=== PATIENT | female | born 1955 | race Caucasian/White ===

== ENCOUNTER 2017-09-09 15:00 | Observation (INO) | payer OTHER ==
[2017-09-09] MEDS ORDERED: PHENERGAN INJ 25 MG IV PRN (16:05)
[2017-09-09 16:28] LABS: BASOPHILS # (AUTO) 0.1 X10^3/uL (0.0-0.1); BASOPHILS % (AUTO) 0.5 % (0.2-1.0); EOSINOPHILS # (AUTO) 0.1 x10^3/uL (0.0-0.2); EOSINOPHILS % (AUTO) 0.4 % (0.9-2.9); HEMATOCRIT 40.9 % (36.0-47.0); HEMOGLOBIN 13.6 g/dL (12.0-16.0); LYMPHOCYTES # (AUTO) 1.6 X10^3/uL (1.3-2.9); LYMPHOCYTES % (AUTO) 13.4 % (21.0-51.0); MEAN CORPUSCULAR HEMOGLOBIN 31.4 pg (27.0-34.0); MEAN CORPUSCULAR HGB CONC 33.2 g/dL (33.0-35.0); MEAN CORPUSCULAR VOLUME 94.6 fL (80.0-100.0); MEAN PLATELET VOLUME 8.6 fL (7.4-11.0); MONOCYTES % (AUTO) 8.3 % (0.0-13.0); NEUTROPHILS # (AUTO) 9.3 x10^3/uL (2.2-4.8); NEUTROPHILS % (AUTO) 77.4 % (42.0-75.0); PLATELET COUNT 302 X10^3/uL (150.0-450.0); RED BLOOD COUNT 4.32 X10^6/uL (3.5-5.4); RED CELL DISTRIBUTION WIDTH 15.5 % (11.6-16.5)
[2017-09-09 16:37] LABS: ALANINE AMINOTRANSFERASE 15 Units/L (12-78); ALBUMIN 3.6 g/dL (3.4-5.0); ALKALINE PHOSPHATASE 108 Units/L (46-116); ASPARTATE AMINO TRANSFERASE 11 Units/L (15-37); BLOOD UREA NITROGEN 12 mg/dL (7-18); CALCIUM 9.2 mg/dL (8.5-10.1); CARBON DIOXIDE 32.5 mmol/L (21-32); CHLORIDE 103 mmol/L (98-107); CREATININE 0.93 mg/dL (0.55-1.02); SODIUM 142 mmol/L (136-145); eGFR BLACK RACES > 60 (>60); eGFR NON BLACK RACES > 60 (>60)
[2017-09-09] MEDS: NS 1000 ML 1,000 ML IV SCH (17:00)
[2017-09-09] MEDS: DEMEROL INJ IVP PRN ×2 (17:00→23:49)
[2017-09-09] MEDS ORDERED: FLUVIRIN IM ONE (17:29)
[2017-09-09] MEDS ORDERED: PREVNAR 13 IM ONE (17:29)
--- NOTE | 2017-09-09 18:20 | DR.H&P ---
H&P - History & Physical for Day of: H&P Date: 09/09/17 - Chief Complaint Chief Complaint: abdominal pain, n/v/d. thrush in mouth, weakness - Allergies Allergies/Adverse Reactions: Allergies Allergy/AdvReac Type Severity Reaction Status Date / Time gabapentin [From Neurontin] Allergy Verified 06/17/17 10:25 - History of Present Illness History of Present Illness: patient is a 61-year-old white female who was a direct admit from Dr. Barnes's office after presenting with complaints of abdominal pain nausea vomiting and diarrhea. Patient states vomiting has somewhat improved over the last several days continues with severe watery diarrhea. Patient also has severe stomatitis. Patient was recently treated for oral thrush without improvement. Patient has a past medical history of hypertension and multi-joint osteoarthritis. Patient also has COPD and uses steroid inhalers. Plan to admit patient for further evaluation of abdominal pain and GI symptoms. Plan to obtain admission labs, stool studies and CT of the abdomen and pelvis. We will start on IV Protonix as well as IV Flagyl. - Past Medical History Past Medical History: Anxiety, Arthritis, CHF, COPD, GERD, Hypertension - Past Surgical History Surgical History: Hysterectomy - Family History Family Medical History: Coronary Artery Disease, Heart Failure, Sudden Cardiac - Social History Does patient currently use any type of tobacco product: Yes Have you used tobacco products in the last 12 months: Yes Type of Tobacco Use: Cigarettes How many years tobacco product used: 50 Does any household member use tobacco: Yes Alcohol Use: None Drug Use: None - Medications Home Medications: Acetaminophen with Codeine [Tylenol with Codeine #3 Tablet] 1 tab PO Q8H PRN [History Confirmed 09/09/17] - Review of Systems Constitutional: Weakness Eyes: No Symptoms Reported ENT: Mouth Pain, Throat Pain Respiratory: Shortness of Breath Cardiovascular: Edema Gastrointestinal: Nausea, Vomiting, Abdominal Pain, Diarrhea Genitourinary: No Symptoms Reported Musculoskeletal: Shoulder Pain, Back Pain, Leg Pain Skin: No Symptoms Reported Neurological: Weakness - Physical Exam Vital Signs: Blood Pressure 161/86 Oriented: Normal Eyes: Normal Ear: Normal Nose: Normal Throat: Red, Exudate Respiratory: RLL Exp. Wheeze, LLL Exp. Wheeze Cardiovascular: Normal, Edema : Normal Auscultation: Bowel Sounds: Increased Tenderness: RLQ, LUQ Skin: Decreased Turgur, Bruising Musculoskeletal: Back:Thoracic, Back:Lumbar, Motor Deficit, Instability Psychiatric: Anxiety Speech Pattern: Clear, Appropriate - Assessment/Plan (1) Gastroenteritis Status: Acute Plan: admit, CBC, CMP, UA, amylase and lipase. Stool studies, cold stool, abdomen series on admission. CT of the abdomen and pelvis with contrast every morning. IV Flagyl, IV saline hydration, pain and nausea control. Repeat a.m. labs, blood pressure and blood sugar monitoring, Diflucan and nystatin for oral stomatitis. (2) Diarrhea Status: Acute (3) Weakness Status: Acute (4) Oral thrush Status: Acute (5) Arthritis Status: Acute
[2017-09-09] MEDS: NYSTATIN POWDER TOP SCH ×2 (18:38→21:23)
[2017-09-09 18:49] LABS: BILIRUBIN,URINE NEGATIVE (NEGATIVE); BLOOD/HEMOGLOBIN,URINE NEGATIVE (NEGATIVE); GLUCOSE, URINE NEGATIVE (NEGATIVE); KETONES,URINE NEGATIVE (NEGATIVE); LEUKOCYTE ESTERASE ,URINE 1+ (NEGATIVE); NITRITES,URINE NEGATIVE (NEGATIVE); PROTEIN,URINE 2+ (NEGATIVE); UROBILINOGEN,URINE 2+ (NORMAL)
[2017-09-09 18:58] LABS: APPEARANCE,URINE SLIGHTLY HAZY (CLEAR); BACTERIA,URINE TRACE /HPF (NEGATIVE); COLOR,URINE DARK YELLOW (YELLOW); MUCUS,URINE MANY /HPF (NEGATIVE); RBC,URINE NONE SEEN /HPF (NEGATIVE); SQUAMOUS EPITHELIAL CELL,UR MODERATE /HPF (NEGATIVE)
[2017-09-09] MEDS ORDERED: TYLENOL #3 TAB (W/CODEINE) PO PRN (18:58)
--- NOTE | 2017-09-09 21:09 | RAD ---
HISTORY: Pain Study: Abdominal series Comparison: None Findings: An upright chest shows the heart to be mildly enlarged and the pulmonary vessels are prominent centra lly . There is some hazy right basilar opacity. Supine and upright views of the abdomen were obtained which shows mild residual contrast in the colon and associated small air-fluid levels throughout. There is no significant bowel dilatation. There is no obvious free air and no urinary calculi are seen. The bones are intact. IMPRESSION: Mild cardiomegaly and mild central pulmonary congestion with a questionable early right basilar infil trate. Questionable mild colonic ileus Reported By:
[2017-09-09] MEDS: NORCO 5/325 MG TAB PO PRN (21:22)
[2017-09-09] MEDS: NYSTATIN SUSP MT SCH (21:23)
[2017-09-09] MEDS: LOPRESSOR TAB 50 MG PO SCH (21:23)
[2017-09-09] MEDS: FLAGYL IV PREMIX 500 MG BAG 500 MG/100 ML BAG IV SCH (21:24)
[2017-09-10] MEDS: FLAGYL IV PREMIX 500 MG BAG 500 MG/100 ML BAG IV SCH ×4 (02:36→20:56)
[2017-09-10 05:17] LABS: BASOPHILS # (AUTO) 0.1 X10^3/uL (0.0-0.1); BASOPHILS % (AUTO) 0.6 % (0.2-1.0); EOSINOPHILS # (AUTO) 0.1 x10^3/uL (0.0-0.2); EOSINOPHILS % (AUTO) 0.6 % (0.9-2.9); HEMATOCRIT 37.1 % (36.0-47.0); HEMOGLOBIN 12.3 g/dL (12.0-16.0); LYMPHOCYTES # (AUTO) 1.9 X10^3/uL (1.3-2.9); MEAN CORPUSCULAR HEMOGLOBIN 31.7 pg (27.0-34.0); MEAN CORPUSCULAR HGB CONC 33.1 g/dL (33.0-35.0); MEAN CORPUSCULAR VOLUME 95.7 fL (80.0-100.0); MEAN PLATELET VOLUME 8.8 fL (7.4-11.0); MONOCYTES % (AUTO) 10.2 % (0.0-13.0); NEUTROPHILS # (AUTO) 6.8 x10^3/uL (2.2-4.8); NEUTROPHILS % (AUTO) 69.6 % (42.0-75.0); PLATELET COUNT 231 X10^3/uL (150.0-450.0); RED BLOOD COUNT 3.87 X10^6/uL (3.5-5.4); RED CELL DISTRIBUTION WIDTH 15.4 % (11.6-16.5); WHITE BLOOD COUNT 9.8 X10^3/uL (3.6-10.0)
[2017-09-10 05:27] LABS: ALANINE AMINOTRANSFERASE 12 Units/L (12-78); ALKALINE PHOSPHATASE 92 Units/L (46-116); ASPARTATE AMINO TRANSFERASE 7 Units/L (15-37); BLOOD UREA NITROGEN 9 mg/dL (7-18); CALCIUM 8.7 mg/dL (8.5-10.1); CARBON DIOXIDE 32.7 mmol/L (21-32); CHLORIDE 104 mmol/L (98-107); COR CA(FOR HYPOALB) 9.5 mg/dL (8.5-10.1); CREATININE 0.68 mg/dL (0.55-1.02); SODIUM 141 mmol/L (136-145); TOTAL PROTEIN 6.8 g/dL (6.4-8.2); eGFR BLACK RACES > 60 (>60); eGFR NON BLACK RACES > 60 (>60)
[2017-09-10] MEDS: DEMEROL INJ IVP PRN ×3 (05:47→20:57)
[2017-09-10 07:25] LABS: CRYPTOSPORIDIUM PARVUM ANTIGEN NEGATIVE (NEGATIVE); GIARDIA LAMBLIA ANTIGEN NEGATIVE (NEGATIVE)
--- NOTE | 2017-09-10 07:38 | CT ---
HISTORY: Abdominal pain, nausea Study: , vomiting CT abdomen pelvis with contrast Comparison: None Technique: Axial post-contrast images with coronal and sagittal reformats. Dose reduction procedures were used with mA/kv adjusted for body size. Findings: The lung bases are clear. The heart is enlarged. The liver, spleen, adrenal glands, and pancreas are within normal limits. No opaque stones are visible within the gallbladder. The kidneys are unobstruct ed and without stones or masses. No ureteral calculi are identified. The appendix is surgically absen t by history. Calcific atherosclerotic change is present in a nondilated abdominal aorta. No enlarged intraperitoneal or retroperitoneal lymphadenopathy is identified. Choose there are no findings sugge stive of diverticulitis or colitis. Examination of the pelvis demonstrated no evidence for pelvic mas ses, pelvic fluid, or pelvic lymphadenopathy. No bladder abnormality is identified. No lytic or blast ic skeletal lesions are identified. IMPRESSION: No significant abnormality identified Reported By:
[2017-09-10] MEDS: DUONEB 0.5 MG/3 MG NEB SCH ×4 (08:54→20:06)
[2017-09-10] MEDS: DIFLUCAN 200 MG IV PREMIX* 200 MG/100 ML BAG IV SCH (09:28)
[2017-09-10] MEDS: NYSTATIN SUSP MT SCH ×4 (09:28→20:56)
[2017-09-10] MEDS: NYSTATIN POWDER TOP SCH ×2 (09:28→20:57)
[2017-09-10] MEDS: LOPRESSOR TAB 50 MG PO SCH ×2 (09:28→20:56)
[2017-09-10] MEDS: PROTONIX INJ 40 MG VIAL IVP SCH (09:28)
[2017-09-10] MEDS: NS 1000 ML 1,000 ML IV SCH ×3 (09:29→20:56)
[2017-09-10] MEDS: LEVAQUIN PREMIX IV 500 MG 500 MG/100 ML BAG IV SCH (09:38)
[2017-09-10] MEDS: NORCO 5/325 MG TAB PO PRN ×2 (09:38→17:44)
[2017-09-10] MEDS ORDERED: VALIUM INJ IVP PRN (11:30)
[2017-09-10] MEDS ORDERED: VALIUM PO PRN (11:34)
--- NOTE | 2017-09-10 15:43 | MRI ---
History: Low back pain. Study: MRI lumbar spine without contrast. Comparison: CT abdomen/pelvis dated same day. Technique: Multiplanar MR images of the lumbar spine were obtained. No I.V. contrast was administered . Findings: There is anatomic alignment without fracture, or listhesis. Multilevel disc desiccation wit h associated moderate to severe disc height loss and type 2 Modic endplate changes. Otherwise, normal bone marrow signal is seen throughout. Conus medullaris terminates at L1. Visualized spinal cord is normal in signal characteristics, course, and caliber. L1-L2 disc level: Broad-based disc bulge that extends into the lateral recesses causing severe right and moderate to severe left neural foraminal narrowing. Spinal canal stenosis to 9 mm. L2-3 disc level: Broad-based disc bulge that extends into the lateral recesses causing moderate bilat eral neural foraminal narrowing and spinal canal stenosis to 10 mm. L3-4 disc level: Broad-based disc bulge that extends into the lateral recesses causing severe right a nd moderate left neural foraminal narrowing. Spinal canal stenosis to 10 mm. L4-5 disc level: Broad-based disc bulge that extends into the lateral recess causing severe bilateral neural foraminal narrowing and spinal canal stenosis to 6 mm. L5-S1 disc level: Broad-based disc bulge without significant neural foraminal narrowing or spinal can al stenosis. Suggestion of bilateral pars defects without evidence of anterolisthesis. Multilevel moderate to severe facet and ligamentum flavum hypertrophy. Impression: Multilevel chronic findings as above. Reported By:
[2017-09-10 16:45] VITALS: BMI 53.6
[2017-09-11] MEDS: DUONEB 0.5 MG/3 MG NEB SCH ×5 (01:09→16:53)
[2017-09-11] MEDS: NORCO 5/325 MG TAB PO PRN ×3 (01:44→14:47)
[2017-09-11] MEDS: FLAGYL IV PREMIX 500 MG BAG 500 MG/100 ML BAG IV SCH ×3 (02:58→14:48)
[2017-09-11] MEDS: DEMEROL INJ IVP PRN ×2 (03:56→10:52)
[2017-09-11] MEDS: NS 1000 ML 1,000 ML IV SCH (05:40)
[2017-09-11 05:44] LABS: BASOPHILS % (AUTO) 0.6 % (0.2-1.0); EOSINOPHILS # (AUTO) 0.1 x10^3/uL (0.0-0.2); EOSINOPHILS % (AUTO) 1.1 % (0.9-2.9); HEMATOCRIT 35.2 % (36.0-47.0); HEMOGLOBIN 11.4 g/dL (12.0-16.0); LYMPHOCYTES # (AUTO) 1.5 X10^3/uL (1.3-2.9); LYMPHOCYTES % (AUTO) 19.1 % (21.0-51.0); MEAN CORPUSCULAR HEMOGLOBIN 31.4 pg (27.0-34.0); MEAN CORPUSCULAR HGB CONC 32.5 g/dL (33.0-35.0); MEAN CORPUSCULAR VOLUME 96.7 fL (80.0-100.0); MEAN PLATELET VOLUME 8.9 fL (7.4-11.0); MONOCYTES % (AUTO) 12.5 % (0.0-13.0); NEUTROPHILS # (AUTO) 5.4 x10^3/uL (2.2-4.8); NEUTROPHILS % (AUTO) 66.7 % (42.0-75.0); PLATELET COUNT 210 X10^3/uL (150.0-450.0); RED BLOOD COUNT 3.64 X10^6/uL (3.5-5.4); RED CELL DISTRIBUTION WIDTH 15.4 % (11.6-16.5)
[2017-09-11 05:52] LABS: ALANINE AMINOTRANSFERASE 13 Units/L (12-78); ALBUMIN 2.8 g/dL (3.4-5.0); ALKALINE PHOSPHATASE 83 Units/L (46-116); ASPARTATE AMINO TRANSFERASE 12 Units/L (15-37); BLOOD UREA NITROGEN 18 mg/dL (7-18); CALCIUM 8.3 mg/dL (8.5-10.1); CARBON DIOXIDE 31.9 mmol/L (21-32); CHLORIDE 105 mmol/L (98-107); COR CA(FOR HYPOALB) 9.3 mg/dL (8.5-10.1); CREATININE 0.73 mg/dL (0.55-1.02); SODIUM 140 mmol/L (136-145); TOTAL PROTEIN 6.4 g/dL (6.4-8.2); eGFR BLACK RACES > 60 (>60); eGFR NON BLACK RACES > 60 (>60)
[2017-09-11] MEDS: PROTONIX INJ 40 MG VIAL IVP SCH (08:13)
[2017-09-11] MEDS: NYSTATIN SUSP MT SCH ×3 (08:13→17:18)
[2017-09-11] MEDS: DIFLUCAN 200 MG IV PREMIX* 200 MG/100 ML BAG IV SCH (08:14)
[2017-09-11] MEDS: LEVAQUIN PREMIX IV 500 MG 500 MG/100 ML BAG IV SCH (08:14)
[2017-09-11] MEDS: LOPRESSOR TAB 50 MG PO SCH (08:14)
[2017-09-11] MEDS: NYSTATIN POWDER TOP SCH (08:15)
[2017-09-11] MEDS ORDERED: SOLU-Medrol 125 MG VIAL IVP ONE (08:25)
--- NOTE | 2017-09-11 09:18 | RAD ---
HISTORY: COPD Study: Chest AP portable Comparison: None Findings: The heart is enlarged. No definite congestive heart failure is noted. The aorta is calcified. There i s marked widening of the upper mediastinum which should be further evaluated with chest CT with contr ast. The lungs are well inflated and free of acute infiltrates. No pleural effusions are identified. The bony thorax is unremarkable. IMPRESSION: Marked widening of the upper mediastinum which should be further evaluated with chest CT with contras t Cardiomegaly without congestive heart failure Lungs clear Reported By:
[2017-09-11] MEDS ORDERED: SOLU-Medrol 125 MG VIAL ONE (10:38)
[2017-09-11] MEDS ORDERED: NS 100 ML IV 100 ML IV ONE (13:34)
--- NOTE | 2017-09-11 14:23 | CT ---
History: Wide mediastinum on chest x-ray Study: CT of the chest with undocumented amount and type of intravenous contrast Comparison: None Findings: The lungs are clear. There is no pleural or pericardial effusion. There is prominent superi or anterior mediastinal fat. There is no abnormal mediastinal mass. The main pulmonary artery however measures nearly 5 cm diameter in the right main pulmonary artery measures 3.8 cm diameter. There is no aortic aneurysmal dilatation. The visualized upper abdomen is unremarkable. There are mild to mode rate degenerative changes in the thoracic spine. Impression: 1. Mediastinal fat but no abnormal mediastinal mass or adenopathy 2. Enlarged central and main pulmonary artery suggesting pulmonary hypertension Reported By:
[2017-09-11 17:21] VITALS: BP 119/68
== END 2017-09-11 17:20 | disposition home or self-care (01) ==
LOC: MED/SURG 15:00
PROVIDERS: ADMIT Internal Medicine; ATTEND Internal Medicine
PROC: 3E0234Z Introduction of Serum, Toxoid and Vaccine into Muscle, Percutaneous Approach (ICD-10-PCS; principal; 2017-09-09)
DX: R10.84 Generalized abdominal pain (principal); K52.89 Other specified noninfective gastroenteritis and colitis; R11.2 Nausea with vomiting, unspecified; R19.7 Diarrhea, unspecified; R53.1 Weakness; B37.0 Candidal stomatitis; I10 Essential (primary) hypertension; M13.89 Other specified arthritis, multiple sites; J44.9 Chronic obstructive pulmonary disease, unspecified; R06.02 Shortness of breath; D72.828 Other elevated white blood cell count; R60.0 Localized edema; Z23 Encounter for immunization
CPT/HCPCS: 36415; 71010; 71260; 72148; 74022; 74177; 80053; 80307; 81001; 82270; 85025; 87045; 87070; 87086; 87205; 87328; 87329; 87336; 87338; 87427; 87493; 87899; 90686; 94640; 94760; A4222; C9113; S0030; 90670; G0378; G0434; J1450; J1956; J2175; J2930; J7620

== ENCOUNTER 2018-01-06 13:42 | Inpatient (IN) | payer OTHER ==
[2018-01-06 13:48] VITALS: BMI 54.8
[2018-01-06] MEDS ORDERED: DUONEB 0.5 MG/3 MG ONE (13:58)
[2018-01-06] MEDS ORDERED: DUONEB 0.5 MG/3 MG NEB ONE (14:09)
--- NOTE | 2018-01-06 14:13 | DR.GENAD ---
HPI - PCP Primary Care Physician: GABBY BENDER, [employer] - HPI Comment HPI Comment: PATIENT WAS RECENTLY TREATED FOR PNEUMONIA. WAS TRYING TO GET OVER IT. YESTERDAY, HER SYMTOMS STARTED. NO FEVER. - Complaint/Symptoms Chief Complaint Doctors Comments: GENERALIZE PAIN, BODYACHES AND INCREASING SOB FOR ONE DAY. Chief Complaint:: PT C/O BEING SOB AND CCC AND HURING ALL OVER HER ABD AND CHEST.. BR Self Treatment fo Chief Complaint: PT WAS PLACED ON LASIX 2 WEEKS AGO.. - Nurses notes reviewed Nurses Notes Review: Yes - Source History Provided: Patient - Mode of Arrival Mode of Arrival: Ambulatory - Timing Onset of Chief Complaint: 01/05/18 Came on: Suddenly - Duration Duration: Since Onset Duration: Days - Severity Severity: Moderate PMH - PMH Past Medical History: Yes Past Medical History: Anxiety, Arthritis, CHF, COPD, GERD, Hypertension Past Surgical History: Yes Surgical History: Hysterectomy - Family History History of Family Medical Conditions: Yes Family Medical History: Coronary Artery Disease, Heart Failure, Sudden Cardiac - Social History Does patient currently use any type of tobacco product: Yes Have you used tobacco products in the last 12 months: Yes Type of Tobacco Use: Cigarettes How many years tobacco product used: 40 Does any household member use tobacco: No Alcohol Use: None Do you use any recreational Drugs:: No Lives With: Family Lives Where: Home - infectious screening In the last 2 months have you had wt loss of >10#?: NO Have you had fever, night sweats or hemotysis?: No Have you traveled outside the country in the last 6 months?: No Isolation: Standard ROS - Review of Systems Constitutional: Weakness, Fatigue. negative: Chills Eyes: negative: Eye Pain, Discharge ENTM: Nose Congestion. negative: Ear Pain, Nose Discharge, Throat Pain Respiratoy: Productive Cough, Short of Breath, Wheezing. negative: Hemoptysis Cardiovascular: Chest Pain, Edema Gastrointestinal/Abdominal: No Symptoms Reported Genitourinary: No Symptoms Reported Hematologic/Lymphatic: No Symptoms Reported Endocrine: No Symptoms Reported All Other Systems: Reviewed and Negative PE - Vital Signs Vitals: Temperature 98.3 F Pulse Rate [Left Brachial] 69 Pulse Rate 86 Respiratory Rate 24 Blood Pressure [Left Arm] 107/58 Blood Pressure [Right Arm] 119/68 Blood Pressure 98/55 O2 Sat by Pulse Oximetry 85 - General Limitations: No Limitations General Appearance: Alert - Head Head Exam: Normal Inspection - Eyes Eye exam: Normal Appearance, PERRL, EOMI. negative: Scleral Icterus, Conjunctival Injection - ENT ENT Exam: Normal External Ear Exam External Ear Exam: Normal External Inspection TM/Canal Exam: Bilateral Normal Nose Exam: Normal Nose Exam Mouth Exam: Normal Inspection Throat Exam: Normal Inspection - Neck Neck Exam: Trachea Midline - Chest Chest Inspection: Symmetric Chest Wall Rise - Respiratory Respiratory Exam: Respiratory Distress Respiratory Exam: Bilateral Wheezing, Bilateral Rhonchi, Upper Wheezing, Upper Rhonchi, Lower Wheezing, Lower Rhonchi - Cardiovascular Cardiovascular Exam: Regular Rate, Normal Rhythm, Normal Heart Sounds - Abdominal Exam Abdominal Exam: Normal Bowel Sounds, Soft. negative: Tenderness - Extremities Extremities Exam: Tenderness (LOWER EXTREMITY SWELLIND AND TENDERNESS.) - Back Back Exam: Paraspinal Tenderness, Vertebral Tenderness - Neurologic Neurological Exam: Alert, Oriented X3 - Psychiatric Psychiatric Exam: Anxious - Skin Skin Exam: Erythema MDM - Differential Diagnosis Differential Diagnosis: CHF, COPD, RESPIRATORY DISTRESS, SD, PNEUMONIA, PULMONARY EMBOLISM Course - Treatment Treatment: SEE ORDERS. - Consultation Consultation Comments: DISCUSS PATIENT WITH DR. MALDONADO, HE WILL ADMIT PATIENT. - Education/Counseling Education/Counseling: Patient, Education Educated On: Diagnosis, Needs for Follow Up ROR - Labs Reviewed Laboratory Results Reviewed?: Yes Result Diagrams: 01/07/18 07:20 01/07/18 07:20 Laboratory: WBC 5.1 X10^3/uL (3.6-10.0) 01/07/18 07:20 RBC 3.88 X10^6/uL (3.5-5.4) 01/07/18 07:20 Hgb 12.0 g/dL (12.0-16.0) 01/07/18 07:20 Hct 38.3 % (36.0-47.0) 01/07/18 07:20 MCV 98.8 fL (80.0-100.0) 01/07/18 07:20 MCH 30.9 pg (27.0-34.0) 01/07/18 07:20 MCHC 31.2 g/dL (33.0-35.0) L 01/07/18 07:20 RDW 16.2 % (11.6-16.5) 01/07/18 07:20 Plt Count 146 X10^3/uL (150.0-450.0) L 01/07/18 07:20 Plt Count Comment Adequate (ADEQUATE) 01/07/18 07:20 MPV 9.6 fL (7.4-11.0) 01/07/18 07:20 Neut % 69.8 % (42.0-75.0) 01/07/18 07:20 Lymph % 8.4 % (21.0-51.0) L 01/07/18 07:20 [place] % 20.9 % (0.0-13.0) H 01/07/18 07:20 Eos % 0.1 % (0.9-2.9) L 01/07/18 07:20 Baso % 0.8 % (0.2-1.0) 01/07/18 07:20 Neut # 3.6 x10^3/uL (2.2-4.8) 01/07/18 07:20 Lymph # 0.4 X10^3/uL (1.3-2.9) L 01/07/18 07:20 [place] # 1.1 x10^3/uL (0.3-0.8) H 01/07/18 07:20 Eos # 0.0 x10^3/uL (0.0-0.2) 01/07/18 07:20 Baso # 0.0 X10^3/uL (0.0-0.1) 01/07/18 07:20 Absolute Nucleated RBC 0.2 /100WBC 01/07/18 07:20 Total Counted 100 01/07/18 07:20 Neutrophils % (Manual) 73 % (39-76) 01/07/18 07:20 Lymphocytes % (Manual) 20 % (13-43) 01/07/18 07:20 Monocytes % (Manual) 7 % (4-9) 01/07/18 07:20 Plt Morphology Comment Normal (NORMAL) 01/07/18 07:20 RBC Morphology Normal (NORMAL) 01/07/18 07:20 INR Target Range - 01/07/18 07:20 INR 1.23 (0.8-1.3) 01/07/18 07:20 PTT 37.7 SECONDS (22.9-36.5) H 01/07/18 07:20 PTT Comment - 01/07/18 07:20 D-Dimer 883 ng/mL (0-400) H* 01/06/18 14:00 Sample Site Lb 01/07/18 08:31 ABG pH 7.200 (7.35-7.45) L 01/07/18 08:31 ABG pCO2 94.0 mmHg (35.0-45.0) H* 01/07/18 08:31 ABG pO2 79.0 mmHg (80.0-100.0) L 01/07/18 08:31 ABG HCO3 36.7 mmol/L (22-26) H* 01/07/18 08:31 ABG O2 Saturation 92.0 % (90-100) 01/07/18 08:31 ABG Base Excess 5.6 mmol/L (-2.0-2.0) H 01/07/18 08:31 Pal Test N/a 01/07/18 08:31 A-a Gradient 160.0 mmHg 01/07/18 08:31 FiO2 50.000 01/07/18 08:31 Blood Gas Comments Pt mark well. cdn 01/07/18 08:31 Sodium 140 mmol/L (136-145) 01/07/18 07:20 Corrected Sodium TNP 01/07/18 07:20 Potassium 4.8 mmol/L (3.5-5.1) 01/07/18 07:20 Chloride 102 mmol/L (98-107) 01/07/18 07:20 Carbon Dioxide 36.9 mmol/L (21-32) H 01/07/18 07:20 BUN 16 mg/dL (7-18) 01/07/18 07:20 Creatinine 0.97 mg/dL (0.55-1.02) 01/07/18 07:20 Est GFR (MDRD) Af Amer > 60 (>60) 01/07/18 07:20 Est GFR (MDRD) Non-Af > 60 (>60) 01/07/18 07:20 Glucose 84 mg/dL (65-99) 01/07/18 07:20 Lactic Acid 1.0 mmol/L (0.4-2.0) 01/06/18 14:00 Calcium 7.9 mg/dL (8.5-10.1) L 01/07/18 07:20 Corrected Calcium 8.9 mg/dL (8.5-10.1) 01/07/18 07:20 Magnesium 1.8 mg/dL (1.7-2.9) 01/07/18 07:20 Total Bilirubin 0.30 mg/dL (0.2-1.0) 01/07/18 07:20 AST 53 Units/L (15-37) H 01/07/18 07:20 ALT 33 Units/L (12-78) 01/07/18 07:20 Alkaline Phosphatase 117 Units/L (46-116) H 01/07/18 07:20 Creatine Kinase 140 Units/L (26-192) 01/07/18 01:35 CK-MB (CK-2) 1.6 ng/mL (0-4.0) 01/07/18 01:35 CK/CKMB % Calc 1.1 % (<4) 01/07/18 01:35 Troponin I 0.38 ng/mL (0-1.5) 01/07/18 01:35 C-Reactive Protein 59.70 mg/L (0-3.0) H 01/06/18 14:00 Total Protein 6.8 g/dL (6.4-8.2) 01/07/18 07:20 Albumin 2.8 g/dL (3.4-5.0) L 01/07/18 07:20 Globulin 4.0 g/dL (2.5-4.5) 01/07/18 07:20 Albumin/Globulin Ratio 0.7 Ratio (1.1-2.1) L 01/07/18 07:20 Triglycerides 56 mg/dL (0-150) 01/07/18 07:20 Cholesterol 125 mg/dL (0-200) 01/07/18 07:20 LDL Cholesterol, Calc 93 mg/dL (0-100) 01/07/18 07:20 HDL Cholesterol 21 mg/dL (40-60) L 01/07/18 07:20 Cholesterol/HDL Ratio 6.0 (0.0-5.0) H 01/07/18 07:20 Specimen Type Catherized urine 01/06/18 15: Urine Color Dark yellow (YELLOW) 01/06/18 15: Urine Appearance Slightly hazy (CLEAR) 01/06/18 15: Urine pH 5.0 (5.0 - 8.0) 01/06/18 15:27 Ur Specific [place] 1.025 (1.000-1.030) 01/06/18 15:27 Urine Protein 3+ (NEGATIVE) 01/06/18 15:27 Urine Glucose (UA) Negative (NEGATIVE) 01/06/18 15: Urine Ketones Negative (NEGATIVE) 01/06/18 15:27 Urine Occult Blood 1+ (NEGATIVE) 01/06/18 15: Urine Nitrite Negative (NEGATIVE) 01/06/18 15: Urine Bilirubin 1+ (NEGATIVE) 01/06/18 15: Urine Urobilinogen 3+ (NORMAL) 01/06/18 15:27 Ur Leukocyte Esterase 1+ (NEGATIVE) 01/06/18 15:27 Urine RBC 2-5 /HPF (NEGATIVE) 01/06/18 15:27 Urine WBC 1-3 /HPF (NEGATIVE) 01/06/18 15:27 Ur Squamous Epith Cells Many /HPF (NEGATIVE) 01/06/18 15: Amorphous Sediment 2+ /HPF (NEGATIVE) 01/06/18 15:27 Urine Bacteria 1+ /HPF (NEGATIVE) 01/06/18 15:27 Hyaline Casts Few /LPF (NEGATIVE) 01/06/18 15:27 Ur Culture Indicated? No/not indicated 01/06/18 15:27 Influenza Type A (PCR) Negative (NEGATIVE) 01/06/18 14:16 Influenza Type B (PCR) Positive (NEGATIVE) A 01/06/18 14:16 - XRAY XRAY Findings: DISCUSS REPORT WITH PATIENT. - EKG Rhythm: NSR (EKG NOTED) - Diagnosis Discharge Problem: CHF (congestive heart failure), Hypercapnia, COPD exacerbation, Respiratory distress, Influenza - Discharge Plan Disposition: ADMITTED INPATIENT Condition: Stable - Follow ups/Referrals - Instructions
[2018-01-06 14:21] LABS: BASOPHILS % (AUTO) 0.7 % (0.2-1.0); EOSINOPHILS % (AUTO) 0.1 % (0.9-2.9); HEMATOCRIT 38.3 % (36.0-47.0); HEMOGLOBIN 12.2 g/dL (12.0-16.0); LYMPHOCYTES # (AUTO) 0.4 X10^3/uL (1.3-2.9); LYMPHOCYTES % (AUTO) 7.9 % (21.0-51.0); MEAN CORPUSCULAR HEMOGLOBIN 30.9 pg (27.0-34.0); MEAN CORPUSCULAR HGB CONC 31.8 g/dL (33.0-35.0); MEAN CORPUSCULAR VOLUME 97.3 fL (80.0-100.0); MEAN PLATELET VOLUME 9.3 fL (7.4-11.0); MONOCYTES # (AUTO) 0.9 x10^3/uL (0.3-0.8); MONOCYTES % (AUTO) 15.9 % (0.0-13.0); NEUTROPHILS # (AUTO) 4.2 x10^3/uL (2.2-4.8); NEUTROPHILS % (AUTO) 75.4 % (42.0-75.0); PLATELET COUNT 168 X10^3/uL (150.0-450.0); RED BLOOD COUNT 3.94 X10^6/uL (3.5-5.4); RED CELL DISTRIBUTION WIDTH 16.2 % (11.6-16.5); WHITE BLOOD COUNT 5.5 X10^3/uL (3.6-10.0)
[2018-01-06 14:36] LABS: ABG BASE EXCESS 4.8 mmol/L (-2.0-2.0)
[2018-01-06 14:37] LABS: ABG HCO3 35.2 mmol/L (22-26)
[2018-01-06 14:45] LABS: BLOOD UREA NITROGEN 15 mg/dL (7-18); CALCIUM 8.4 mg/dL (8.5-10.1); CARBON DIOXIDE 32.8 mmol/L (21-32); CHLORIDE 101 mmol/L (98-107); CREATININE 1.11 mg/dL (0.55-1.02); SODIUM 139 mmol/L (136-145); TROPONIN I < 0.02 ng/mL (0-1.5); eGFR BLACK RACES > 60 (>60); eGFR NON BLACK RACES 53 (>60)
[2018-01-06 14:48] LABS: ALANINE AMINOTRANSFERASE 19 Units/L (12-78); ALBUMIN 3.1 g/dL (3.4-5.0); ALKALINE PHOSPHATASE 128 Units/L (46-116); ASPARTATE AMINO TRANSFERASE 27 Units/L (15-37); CKMB % 4.2 % (<4); COR CA(FOR HYPOALB) 9.1 mg/dL (8.5-10.1); CREATINE KINASE 24 Units/L (26-192); CREATINE KINASE MB < 1.0 ng/mL (0-4.0); TOTAL PROTEIN 7.2 g/dL (6.4-8.2)
--- NOTE | 2018-01-06 15:12 | RAD ---
STUDY: CHEST, ONE VIEW History: Shortness of breath. CHF, COPD, hypertension. Comparison: September 11, 2017. Findings: The trachea is midline. The cardiac silhouette is enlarged. There is central pulmonary vascular conge stion and mild bilateral interstitial edema. There is no evidence of consolidation, effusion, or pneu mothorax. IMPRESSION: 1. Cardiomegaly with central pulmonary vascular congestion and bilateral interstitial edema. Reported By:
[2018-01-06 15:33] LABS: BILIRUBIN,URINE 1+ (NEGATIVE); BLOOD/HEMOGLOBIN,URINE 1+ (NEGATIVE); GLUCOSE, URINE NEGATIVE (NEGATIVE); KETONES,URINE NEGATIVE (NEGATIVE); LEUKOCYTE ESTERASE ,URINE 1+ (NEGATIVE); NITRITES,URINE NEGATIVE (NEGATIVE); PROTEIN,URINE 3+ (NEGATIVE); UROBILINOGEN,URINE 3+ (NORMAL)
[2018-01-06 15:53] LABS: AMORPHOUS SEDIMENT,UR 2+ /HPF (NEGATIVE); APPEARANCE,URINE SLIGHTLY HAZY (CLEAR); BACTERIA,URINE 1+ /HPF (NEGATIVE); COLOR,URINE DARK YELLOW (YELLOW); HYALINE CASTS, URINE FEW /LPF (NEGATIVE); SQUAMOUS EPITHELIAL CELL,UR MANY /HPF (NEGATIVE)
[2018-01-06] MEDS ORDERED: LASIX IVP ONE ×2 (16:13→16:24)
[2018-01-06] MEDS: DUONEB 0.5 MG/3 MG NEB SCH ×2 (18:20→20:10)
[2018-01-06 20:24] LABS: CKMB % 2.4 % (<4); CREATINE KINASE 41 Units/L (26-192); CREATINE KINASE MB < 1.0 ng/mL (0-4.0); TROPONIN I 0.26 ng/mL (0-1.5)
[2018-01-06] MEDS ORDERED: NS 250 ML IV 250 ML IV ONE (20:47)
[2018-01-06] MEDS: LOPRESSOR TAB 50 MG PO SCH (23:14)
[2018-01-06] MEDS: ROCEPHIN VIAL 1 GM 1 GM in NS 100 ML IV + SPIKE MINIBAG* 100 ML IV SCH (23:14)
[2018-01-06] MEDS: TYLENOL 325 MG TAB PO PRN (23:14)
[2018-01-06] MEDS: LASIX IVP SCH (23:15)
[2018-01-06] MEDS: K-DUR TAB 20 MEQ PO SCH (23:15)
[2018-01-07] MEDS: DUONEB 0.5 MG/3 MG NEB SCH ×6 (01:37→21:23)
[2018-01-07 02:16] LABS: CKMB % 1.1 % (<4); CREATINE KINASE MB 1.6 ng/mL (0-4.0); TROPONIN I 0.38 ng/mL (0-1.5)
[2018-01-07 07:38] LABS: BASOPHILS % (AUTO) 0.8 % (0.2-1.0); EOSINOPHILS % (AUTO) 0.1 % (0.9-2.9); HEMATOCRIT 38.3 % (36.0-47.0); LYMPHOCYTES # (AUTO) 0.4 X10^3/uL (1.3-2.9); LYMPHOCYTES % (AUTO) 8.4 % (21.0-51.0); MEAN CORPUSCULAR HEMOGLOBIN 30.9 pg (27.0-34.0); MEAN CORPUSCULAR HGB CONC 31.2 g/dL (33.0-35.0); MEAN CORPUSCULAR VOLUME 98.8 fL (80.0-100.0); MEAN PLATELET VOLUME 9.6 fL (7.4-11.0); MONOCYTES # (AUTO) 1.1 x10^3/uL (0.3-0.8); MONOCYTES % (AUTO) 20.9 % (0.0-13.0); NEUTROPHILS # (AUTO) 3.6 x10^3/uL (2.2-4.8); NEUTROPHILS % (AUTO) 69.8 % (42.0-75.0); PLATELET COUNT 146 X10^3/uL (150.0-450.0); RED BLOOD COUNT 3.88 X10^6/uL (3.5-5.4); RED CELL DISTRIBUTION WIDTH 16.2 % (11.6-16.5); WHITE BLOOD COUNT 5.1 X10^3/uL (3.6-10.0)
[2018-01-07 07:44] LABS: ALANINE AMINOTRANSFERASE 33 Units/L (12-78); ALBUMIN 2.8 g/dL (3.4-5.0); ALKALINE PHOSPHATASE 117 Units/L (46-116); ASPARTATE AMINO TRANSFERASE 53 Units/L (15-37); BLOOD UREA NITROGEN 16 mg/dL (7-18); CALCIUM 7.9 mg/dL (8.5-10.1); CARBON DIOXIDE 36.9 mmol/L (21-32); CHLORIDE 102 mmol/L (98-107); CHOLESTEROL 125 mg/dL (0-200); COR CA(FOR HYPOALB) 8.9 mg/dL (8.5-10.1); CREATININE 0.97 mg/dL (0.55-1.02); HDL CHOLESTEROL 21 mg/dL (40-60); MAGNESIUM 1.8 mg/dL (1.7-2.9); PLATELET MORPHOLOGY COMMENT NORMAL (NORMAL); SODIUM 140 mmol/L (136-145); TOTAL PROTEIN 6.8 g/dL (6.4-8.2); TRIGLYCERIDES 56 mg/dL (0-150); eGFR BLACK RACES > 60 (>60); eGFR NON BLACK RACES > 60 (>60)
[2018-01-07 08:36] LABS: ABG BASE EXCESS 5.6 mmol/L (-2.0-2.0)
[2018-01-07 08:38] LABS: ABG HCO3 36.7 mmol/L (22-26)
[2018-01-07] MEDS ORDERED: NORCO 5/325 MG TAB PO SCH (09:00)
[2018-01-07] MEDS: K-DUR TAB 20 MEQ PO SCH (09:43)
[2018-01-07] MEDS: NORCO 5/325 MG TAB PO SCH ×4 (09:43→21:23)
[2018-01-07] MEDS: ROCEPHIN VIAL 1 GM 1 GM in NS 100 ML IV + SPIKE MINIBAG* 100 ML IV SCH (09:43)
[2018-01-07] MEDS: LOPRESSOR TAB 50 MG PO SCH ×2 (11:34→20:32)
[2018-01-07] MEDS: LASIX IVP SCH ×3 (11:34→21:23)
[2018-01-07 13:18] LABS: ABG BASE EXCESS 3.3 mmol/L (-2.0-2.0)
[2018-01-07 13:19] LABS: ABG HCO3 34.7 mmol/L (22-26)
--- NOTE | 2018-01-07 13:30 | DR.H&P ---
H&P - History & Physical for Day of: H&P Date: 01/06/18 - Chief Complaint Chief Complaint: sob, ccc, flu like symptoms - Allergies Allergies/Adverse Reactions: Allergies Allergy/AdvReac Type Severity Reaction Status Date / Time morphine Allergy Mild RASH Verified 01/06/18 13:43 tramadol Allergy Mild RASH Verified 01/06/18 13:43 gabapentin [From Neurontin] Allergy Verified 01/06/18 13:43 - History of Present Illness History of Present Illness: patient is a 62-year-old white female who is an ER admission after presenting with respiratory distress. Patient stated she been having flulike symptoms and recent pneumonia was just getting worse instead of better. Patient was noted to have pulmonary edema and congestion on chest x- ray and positive for influenza B patient was hypoxic, admitted to ICU for further evaluation and treatment of respiratory distress. Serial cardiac enzymes, EKGs and blood pressure monitoring as well as IV diurese therapy, aggressive respiratory therapy. - Past Medical History Past Medical History: Anxiety, Arthritis, CHF, COPD, GERD, Hypertension - Past Surgical History Surgical History: Hysterectomy - Family History Family Medical History: Coronary Artery Disease, Heart Failure, Sudden Cardiac - Social History Does patient currently use any type of tobacco product: Yes Have you used tobacco products in the last 12 months: Yes Type of Tobacco Use: Cigarettes How many years tobacco product used: 40 Does any household member use tobacco: No Alcohol Use: None Drug Use: None - Medications Home Medications: Furosemide [LASIX TAB 40 MG *] 1 tab PO DAILY 01/06/18 [History Confirmed ] Hydrocodone-Acet 5 mg/325 mg [NORCO 5 MG/325 MG *] 1 tab PO DAILY 01/06/18 [ History Confirmed 01/06/18] - Review of Systems Constitutional: Fever, Chills, Weakness, Malaise Eyes: No Symptoms Reported ENT: Throat Pain Respiratory: Cough, Shortness of Breath, SOB with Excertion, Wheezing Cardiovascular: Edema Gastrointestinal: Nausea Genitourinary: No Symptoms Reported Musculoskeletal: Back Pain, Leg Pain Skin: No Symptoms Reported Neurological: Weakness - Physical Exam Vital Signs: Temperature 97.3 F Pulse Rate [Left Brachial] 66 Pulse Rate 66 Respiratory Rate 49 Blood Pressure [Left Arm] 106/58 Blood Pressure [Right Arm] 119/68 Blood Pressure 98/55 O2 Sat by Pulse Oximetry 90 Oriented: Normal Eyes: Normal Ear: Normal Nose: Normal Throat: Dry Respiratory: Diminished Throughout : Normal Auscultation: Bowel Sounds: Normal Palpation: Normal Tenderness: Normal Skin: Normal Musculoskeletal: Back:Lumbar Psychiatric: Anxiety Affect: Anxious Speech Pattern: Clear, Appropriate - Assessment/Plan (1) Respiratory distress Status: Acute Plan: ADMIT, RESP THERAPY, SUPPLEMENTAL O2. BI PAP, REPEAT ABG. CARDIAC MONITORING AND CE, BP CONTROL. STRICT I & OS, CHAND CATH. IV ATBX THERAPY, BLOOD CULTURES, SPUTUM CULTURES. TAMIFLU, CONTACT PRECAUTIONS (2) CHF (congestive heart failure) Status: Acute (3) COPD exacerbation Status: Acute (4) Influenza Status: Acute (5) Gastroenteritis Status: Acute
[2018-01-07] MEDS: SOLU-Medrol 125 MG VIAL IVP SCH ×2 (13:44→21:23)
[2018-01-07] MEDS ORDERED: NS 250 ML IV 250 ML IV ONE (13:45)
--- NOTE | 2018-01-07 13:45 | RAD ---
Examination: Portable AP chest History: SOB Comparison 01/06/2018 Findings: Stable cardiac enlargement and central vascular prominence. Diffuse interstitial increase m ay represent chronic fibrosis and/or perivascular edema. The extreme lung bases are not well evaluate d, the left base and diaphragm not included on this image. Impression: Considering technical difference, little if any change since 1 day prior. Reported By:
[2018-01-07] MEDS: TAMIFLU PO SCH ×2 (13:46→21:23)
[2018-01-07] MEDS: LOVENOX INJ 40 MG SYR SC SCH (13:51)
[2018-01-07] MEDS ORDERED: NS 250 ML IV 250 ML IV PRN (13:53)
[2018-01-07] MEDS: LEVAQUIN PREMIX IV 750 MG 750 MG/150 ML BAG IV SCH (13:53)
[2018-01-07 13:55] LABS: CKMB % 0.9 % (<4); CREATINE KINASE MB 1.7 ng/mL (0-4.0); TROPONIN I 0.23 ng/mL (0-1.5)
[2018-01-07] MEDS ORDERED: PHARMACY CONSULT - DOSE _____ XX SCH (14:00)
[2018-01-07 16:04] LABS: ABG BASE EXCESS 7.5 mmol/L (-2.0-2.0)
[2018-01-07 16:05] LABS: ABG HCO3 37.7 mmol/L (22-26)
[2018-01-07] MEDS: TYLENOL 325 MG TAB PO PRN (17:51)
[2018-01-07 19:43] LABS: ABG BASE EXCESS 8.7 mmol/L (-2.0-2.0)
[2018-01-07 19:45] LABS: ABG HCO3 39.4 mmol/L (22-26)
[2018-01-07 19:46] LABS: ABG ALLEN TEST POS
[2018-01-07] MEDS ORDERED: RESTORIL CAP 15 MG PO PRN (19:47)
[2018-01-07] MEDS ORDERED: TUSSIONEX PENNKINETIC SUSP PO PRN (20:02)
[2018-01-07] MEDS: BROVANA IN SCH (21:22)
[2018-01-07] MEDS: PULMICORT NEB TX 0.5 MG NEB SCH (21:22)
[2018-01-08] MEDS: DUONEB 0.5 MG/3 MG NEB SCH ×5 (01:36→16:11)
[2018-01-08] MEDS: NORCO 5/325 MG TAB PO SCH ×4 (05:01→15:48)
[2018-01-08 06:09] LABS: BASOPHILS % (AUTO) 0.4 % (0.2-1.0); HEMATOCRIT 38.5 % (36.0-47.0); HEMOGLOBIN 12.2 g/dL (12.0-16.0); LYMPHOCYTES # (AUTO) 0.5 X10^3/uL (1.3-2.9); LYMPHOCYTES % (AUTO) 14.9 % (21.0-51.0); MEAN CORPUSCULAR HEMOGLOBIN 30.7 pg (27.0-34.0); MEAN CORPUSCULAR HGB CONC 31.6 g/dL (33.0-35.0); MEAN CORPUSCULAR VOLUME 97.1 fL (80.0-100.0); MEAN PLATELET VOLUME 9.8 fL (7.4-11.0); MONOCYTES # (AUTO) 0.4 x10^3/uL (0.3-0.8); MONOCYTES % (AUTO) 11.4 % (0.0-13.0); NEUTROPHILS # (AUTO) 2.3 x10^3/uL (2.2-4.8); NEUTROPHILS % (AUTO) 73.3 % (42.0-75.0); PLATELET COUNT 145 X10^3/uL (150.0-450.0); RED BLOOD COUNT 3.96 X10^6/uL (3.5-5.4); RED CELL DISTRIBUTION WIDTH 15.8 % (11.6-16.5); WHITE BLOOD COUNT 3.1 X10^3/uL (3.6-10.0)
[2018-01-08] MEDS: SOLU-Medrol 125 MG VIAL IVP SCH ×2 (06:09→15:49)
[2018-01-08 06:29] LABS: ALANINE AMINOTRANSFERASE 63 Units/L (12-78); ALBUMIN 2.6 g/dL (3.4-5.0); ALKALINE PHOSPHATASE 113 Units/L (46-116); ASPARTATE AMINO TRANSFERASE 79 Units/L (15-37); BLOOD UREA NITROGEN 21 mg/dL (7-18); CALCIUM 8.1 mg/dL (8.5-10.1); CHLORIDE 102 mmol/L (98-107); COR CA(FOR HYPOALB) 9.2 mg/dL (8.5-10.1); COR NA(FOR HYPERGLY) 142 mmol/L (136-145); CREATININE 0.79 mg/dL (0.55-1.02); SODIUM 141 mmol/L (136-145); TOTAL PROTEIN 6.7 g/dL (6.4-8.2); eGFR BLACK RACES > 60 (>60); eGFR NON BLACK RACES > 60 (>60)
[2018-01-08 06:39] LABS: PLATELET MORPHOLOGY COMMENT NORMAL (NORMAL)
[2018-01-08] MEDS: PULMICORT NEB TX 0.5 MG NEB SCH (08:54)
[2018-01-08] MEDS: BROVANA IN SCH (08:54)
[2018-01-08] MEDS ORDERED: ASPIRIN EC 81 MG PO SCH (09:00)
[2018-01-08] MEDS: K-DUR TAB 20 MEQ PO SCH (09:10)
[2018-01-08] MEDS: TAMIFLU PO SCH (09:10)
[2018-01-08] MEDS: LOPRESSOR TAB 50 MG PO SCH (09:10)
[2018-01-08] MEDS: LOVENOX INJ 40 MG SYR SC SCH (09:11)
[2018-01-08] MEDS: LASIX IVP SCH (09:11)
[2018-01-08] MEDS: LEVAQUIN PREMIX IV 750 MG 750 MG/150 ML BAG IV SCH (09:12)
[2018-01-08] MEDS: ROCEPHIN VIAL 1 GM 1 GM in NS 100 ML IV + SPIKE MINIBAG* 100 ML IV SCH (09:12)
[2018-01-08 10:01] LABS: ABG BASE EXCESS 9.6 mmol/L (-2.0-2.0)
[2018-01-08 10:09] LABS: ABG HCO3 41.2 mmol/L (22-26)
[2018-01-08 10:10] LABS: ABG ALLEN TEST POS
[2018-01-08] MEDS ORDERED: QUELICIN (OR ANECTINE) ONE (14:42)
[2018-01-08] MEDS ORDERED: DIPRIVAN VIAL 20 ML ONE (14:42)
[2018-01-08] MEDS ORDERED: DIPRIVAN PREMIX 1 GM IV 1,000 MG/100 ML VIAL ONE (14:55)
--- NOTE | 2018-01-08 15:36 | RAD ---
History: ET tube placement Study: Chest AP portable Findings: AP portable examination of chest is compared to the previous day's study. The heart is enla rged as before. There is pulmonary vascular congestion and bilateral pulmonary edema. There is been i nterval placement of an endotracheal tube tip at the level of the aortic arch. Impression: ET tube in appropriate position. Probable CHF. Reported By:
[2018-01-08] MEDS ORDERED: DIPRIVAN PREMIX 1 GM IV 1,000 MG/100 ML VIAL IV PRN (16:19)
[2018-01-08] MEDS ORDERED: VERSED 100 MG in NS 100 ML IV 80 ML IV PRN (16:21)
[2018-01-08 17:47] VITALS: BP 110/75
== END 2018-01-08 17:25 | disposition short-term general hospital (02) | DRG 193 ==
LOC: ER 13:53 → ICU 16:43
PROVIDERS: ADMIT Internal Medicine; ATTEND Internal Medicine
DX: J10.1 Influenza due to other identified influenza virus with other respiratory manifestations (principal); J44.1 Chronic obstructive pulmonary disease with (acute) exacerbation; J81.0 Acute pulmonary edema; R06.03 Acute respiratory distress; I50.9 Heart failure, unspecified; R06.02 Shortness of breath; I10 Essential (primary) hypertension; R06.89 Other abnormalities of breathing; K21.9 Gastro-esophageal reflux disease without esophagitis; K52.89 Other specified noninfective gastroenteritis and colitis; R26.89 Other abnormalities of gait and mobility
CPT/HCPCS: 36415; 36600; 51702; 71045; 80053; 80061; 81001; 82550; 82553; 82803; 83605; 83735; 84484; 85025; 85378; 85610; 85730; 86140; 87040; 87502; 93005; 93010; 94660; 96374; 99284; 99285; A4216; A4222; A4618; A7030; G9035; J0330; J0696; J1650; J1940; J1956; J2930; J3490; J7620; J7626

== ENCOUNTER 2018-02-09 12:59 | Emergency (ER) | payer OTHER ==
[2018-02-09 13:16] VITALS: BMI 51.0
[2018-02-09 14:06] LABS: BASOPHILS # (AUTO) 0.1 X10^3/uL (0.0-0.1); BASOPHILS % (AUTO) 0.6 % (0.2-1.0); EOSINOPHILS % (AUTO) 0.4 % (0.9-2.9); HEMATOCRIT 40.6 % (36.0-47.0); HEMOGLOBIN 13.3 g/dL (12.0-16.0); LYMPHOCYTES # (AUTO) 1.6 X10^3/uL (1.3-2.9); LYMPHOCYTES % (AUTO) 17.1 % (21.0-51.0); MEAN CORPUSCULAR HEMOGLOBIN 31.2 pg (27.0-34.0); MEAN CORPUSCULAR HGB CONC 32.8 g/dL (33.0-35.0); MEAN CORPUSCULAR VOLUME 95.3 fL (80.0-100.0); MEAN PLATELET VOLUME 9.2 fL (7.4-11.0); MONOCYTES # (AUTO) 0.7 x10^3/uL (0.3-0.8); MONOCYTES % (AUTO) 7.2 % (0.0-13.0); NEUTROPHILS % (AUTO) 74.7 % (42.0-75.0); PLATELET COUNT 293 X10^3/uL (150.0-450.0); RED BLOOD COUNT 4.26 X10^6/uL (3.5-5.4); RED CELL DISTRIBUTION WIDTH 17.4 % (11.6-16.5); WHITE BLOOD COUNT 9.4 X10^3/uL (3.6-10.0)
[2018-02-09 14:07] VITALS: BP 129/71
--- NOTE | 2018-02-09 14:12 | RAD ---
HISTORY: 62-year-old female with weakness and dizziness. Study: Frontal views of the chest. Comparison: Chest radiograph 01/08/2018 Findings: Study is significantly limited secondary to patient body habitus and excessive quantum mottle. The trachea is midline. The cardiac silhouette is significantly enlarged and stable with chronic pro minence of the perihilar lung markings. The lungs are clear without focal consolidation, effusion or pneumothorax. Soft tissues are unremarkable. Osseous structures are unremarkable. IMPRESSION: 1. No acute cardiopulmonary disease. Reported By:
[2018-02-09 14:19] LABS: BLOOD UREA NITROGEN 16 mg/dL (7-18); CALCIUM 8.6 mg/dL (8.5-10.1); CARBON DIOXIDE 31.6 mmol/L (21-32); CHLORIDE 105 mmol/L (98-107); COR NA(FOR HYPERGLY) 142 mmol/L (136-145); CREATININE 0.69 mg/dL (0.55-1.02); SODIUM 141 mmol/L (136-145); TROPONIN I < 0.02 ng/mL (0-1.5); eGFR BLACK RACES > 60 (>60); eGFR NON BLACK RACES > 60 (>60)
[2018-02-09 14:23] LABS: ALANINE AMINOTRANSFERASE 12 Units/L (12-78); ALBUMIN 3.2 g/dL (3.4-5.0); ALKALINE PHOSPHATASE 99 Units/L (46-116); ASPARTATE AMINO TRANSFERASE 9 Units/L (15-37); COR CA(FOR HYPOALB) 9.2 mg/dL (8.5-10.1); CREATINE KINASE 20 Units/L (26-192); MAGNESIUM 1.7 mg/dL (1.7-2.9); TOTAL PROTEIN 7.7 g/dL (6.4-8.2)
--- NOTE | 2018-02-09 14:26 | DR.DIZZY ---
HPI - Time seen Time seen: 13:20 - PCP Primary Care Physician: JOEL BRUNO - Complaint Chief Complaint Doctor Comments: Patient presented to the ED for evaluation of low BP. Patient states that she takes furosemide and metropolol 5mg. She is in no distress. BP 124/62. 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 Self Treatment fo Chief Complaint: PT C/O NI, LIGHTHEADED AND NO ENERGY,,,, PT IS ABLE TO TALK AND GIVE A HX AND SHE STATES " I FEEL ROTTEN AND THIS HAS BEEN GOING ON FOR A WHILE ".. - Source History Provided: Patient - Mode of Arrival Mode of Arrival: Wheelchair - Timing Onset of Chief Complaint: 02/09/18 Symptom Onset: Unknown - Duration Duration: Unknown Duration: Minutes - Location of Weakness Weakness Location: Generalized - Context Onset: With heavy exertion History of: None Stroke Symptoms: None - Severity Severity: Normal activity level - Modifying factors Worsens: Nothing - Associated signs and symptoms Associated Signs and Symptoms: Faintness PMH - PMH Past Medical History: Yes Past Medical History: Anxiety, Arthritis, CHF, COPD, GERD, Hypertension Past Surgical History: Yes Surgical History: Hysterectomy - Family History History of Family Medical Conditions: Yes Family Medical History: Coronary Artery Disease, Heart Failure, Sudden Cardiac - Social History Does patient currently use any type of tobacco product: Yes Have you used tobacco products in the last 12 months: Yes Type of Tobacco Use: Cigarettes How many years tobacco product used: 48 Does any household member use tobacco: No Alcohol Use: None Do you use any recreational Drugs:: No Lives With: Family Lives Where: Home - infectious screening In the last 2 months have you had wt loss of >10#?: NO Have you had fever, night sweats or hemotysis?: No Have you traveled outside the country in the last 6 months?: No Isolation: Standard ROS - Review of Systems Eyes: No Symptoms Reported ENTM: No Symptoms Reported Respiratoy: No Symptoms Reported Cardiovascular: No Symptoms Reported Gastrointestinal/Abdominal: No Symptoms Reported Genitourinary: No Symptoms Reported Neurological: No Symptoms Reported Musculoskeletal: No Symptoms Reported Integumentary: No Symptoms Reported Hematologic/Lymphatic: No Symptoms Reported Endocrine: No Symptoms Reported Psychiatric: No Symptoms Reported All Other Systems: Reviewed and Negative PE - Vital Signs Vitals: Pulse Rate [Left Brachial] 78 Pulse Rate 76 Respiratory Rate 20 Blood Pressure [Left Arm] 129/71 Blood Pressure [Right Arm] 119/68 Blood Pressure 124/62 O2 Sat by Pulse Oximetry 98 - General Limitations: No Limitations General Appearance: Alert, In No Apparent Distress - Head Head Exam: Normal Inspection, Atraumatic - Eyes Eye exam: Normal Appearance, PERRL, EOMI Pupils: Regular, Round: Bilateral Sclera/Conjunctival: Normal Inspection: Bilateral Anterior Chamber: Normal Inspection: Bilateral Posterior Chamber: Deferred: Bilateral - ENT ENT Exam: Normal Exam, Normal Oropharynx - Neck Neck Exam: Normal Inspection, Full ROM - Chest Chest Inspection: Normal Inspection - Respiratory Respiratory Exam: Normal Lung Sounds Bilat Respiratory Exam: Bilateral Clear to Auscultation - Cardiovascular Cardiovascular Exam: Regular Rate - Abdominal Exam Abdominal Exam: Normal Inspection, Normal Bowel Sounds Abdominal Tenderness: negative: RUQ, RLQ, LUQ, LLQ, Epigastrium, Suprapubic, Diffuse, Mild, Moderate, Severe, Other - Rectal Rectal Exam: Deferred - Extremeties Extremities Exam: Normal Inspection, Full ROM - Back Back Exam: Normal Inspection, Full ROM - Neurologic Neurological Exam: Alert, Oriented X3, CN II-XII Intact Cranial Nerve Exam: EOM Function (II, III, IV, ): Normal, Facial Sensation (V) : Normal, Facial Palsy (VII): Normal Cerebellar Function: Normal Gait Sensory Exam Upper Extremity: Light Touch: Normal, Pin Prick: Normal Sensory Exam Lower Extremity: Light Touch: Normal DTR: achilles tendon (L): 2+, achilles tendon (R): 2+, bicep (L): 2+, bicep (R) : 2+ - Psychiatric Psychiatric Exam: Normal Affect - Skin Skin Exam: Warm, Dry, Intact ROR - Labs Reviewed Result Diagrams: 02/09/18 13:48 02/09/18 13:48 Laboratory: WBC 9.4 X10^3/uL (3.6-10.0) 02/09/18 13:48 RBC 4.26 X10^6/uL (3.5-5.4) 02/09/18 13:48 Hgb 13.3 g/dL (12.0-16.0) 02/09/18 13:48 Hct 40.6 % (36.0-47.0) 02/09/18 13:48 MCV 95.3 fL (80.0-100.0) 02/09/18 13:48 MCH 31.2 pg (27.0-34.0) 02/09/18 13:48 MCHC 32.8 g/dL (33.0-35.0) L 02/09/18 13:48 RDW 17.4 % (11.6-16.5) H 02/09/18 13:48 Plt Count 293 X10^3/uL (150.0-450.0) 02/09/18 13:48 MPV 9.2 fL (7.4-11.0) 02/09/18 13:48 Neut % (Auto) 74.7 % (42.0-75.0) 02/09/18 13:48 Lymph % (Auto) 17.1 % (21.0-51.0) L 02/09/18 13:48 [place] % (Auto) 7.2 % (0.0-13.0) 02/09/18 13:48 Eos % (Auto) 0.4 % (0.9-2.9) L 02/09/18 13:48 Baso % (Auto) 0.6 % (0.2-1.0) 02/09/18 13:48 Neut # (Auto) 7.0 x10^3/uL (2.2-4.8) H 02/09/18 13:48 Lymph # (Auto) 1.6 X10^3/uL (1.3-2.9) 02/09/18 13:48 [place] # (Auto) 0.7 x10^3/uL (0.3-0.8) 02/09/18 13:48 Eos # (Auto) 0.0 x10^3/uL (0.0-0.2) 02/09/18 13:48 Baso # (Auto) 0.1 X10^3/uL (0.0-0.1) 02/09/18 13:48 Absolute Nucleated RBC 0.1 /100WBC 02/09/18 13:48 INR Target Range - 02/09/18 13:48 INR 1.01 (0.8-1.3) 02/09/18 13:48 APTT 28.7 SECONDS (22.9-36.5) 02/09/18 13:48 PTT Comment - 02/09/18 13:48 - Diagnosis Discharge Problem: Normal blood pressure COPD (chronic obstructive pulmonary disease) Qualifiers: COPD type: unspecified COPD Qualified Code(s): J44.9 - Chronic obstructive pulmonary disease, unspecified - Discharge Plan Condition: Stable - Follow ups/Referrals Follow ups/Referrals: MOUNA MALDONADO [Primary Care Provider] - 3 days - Instructions
[2018-02-09 14:35] LABS: B-TYPE NATRIURETIC PEPTIDE 89.3 pg/mL (0-79)
== END 2018-02-09 14:32 | disposition home or self-care (01) ==
LOC: ER 13:30
DX: J44.9 Chronic obstructive pulmonary disease, unspecified (principal); R94.31 Abnormal electrocardiogram [ECG] [EKG]
CPT/HCPCS: 36415; 71045; 80053; 82550; 82553; 83735; 83880; 84484; 85025; 85378; 85610; 85730; 93005; 93010; 99282; 99283

== ENCOUNTER 2019-10-12 23:42 | Inpatient (IN) ==
[2019-10-12] MEDS ORDERED: ZOFRAN INJ 4 MG VIAL IVP ONE (23:52)
[2019-10-12] MEDS ORDERED: ZOFRAN INJ 4 MG VIAL ONE (23:56)
[2019-10-12] MEDS ORDERED: MORPHINE SULFATE INJ 4 MG IVP ONE (23:56)
[2019-10-13] VITALS: BMI 47.2
[2019-10-13] MEDS ORDERED: MORPHINE SULFATE INJ 4 MG ONE
--- NOTE | 2019-10-13 00:06 | DR.CP ---
HPI Time Seen Time Seen by Provider: 10/12/19 23:49 PCP Primary Care Physician: Barnes Complaint Chief Complaint Doctor Comments: 64yo female presented for CP by EMS. 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 Pt reports the pain squeezing 10/10 and radiates across chest to her back and down her arms. She reports SOB, nausea, but denies any diaphoresis or vomiting. She had CAD with stent and on ASA. She was given SL nitro by EMS w/o relief. Denies any reflux or wheezing. She has history of CHF and has been out of her Lasix. Pt heart cath last year. Chief Complaint:: CP Reviewed Nurses Notes Review: Yes Mode of Arrival Mode of Arrival: EMS Timing Came on: Suddenly Pain: Present Now Duration Duration: Constant Duration: Minutes Location Location of Chest Pain: Chest Chest Pain Radiation Location: Left Arm, Right Arm and Back Context Onset: At rest and With light exertion Cardiac Risk Factors: Smoker and HTN; denies Diabetes PE Risk Factors: None History of: AR, Angina and Angioplasty Prehospital Care: SL Nitro Quality Quality: Squeezing Severity Severity: Moderate Modifying Factors Worsens: Exertion Impoves: Nothing Associated Signs and Symptoms Associated Signs and Symptoms: Shortness of Breath, Abdominal Pain and Nausea/Vomiting; denies Palpitations and Diaphoresis PMH PMH Past Medical History: Anxiety, Arthritis, CHF, COPD, GERD and Hypertension Past Surgical History: Yes Surgical History: Angioplasty/Stents, Hysterectomy and Ortho Surgery Family History Family Medical History: Coronary Artery Disease, Heart Failure and Sudden Cardiac Social History Type of Tobacco Use: Cigarettes Alcohol Use: None Do you use any recreational Drugs:: No Lives Where: Home infectious screening Isolation: Standard ROS Review of Systems Constitutional: negative Chills, Fever and Weakness Eyes: negative Blurred Vision ENTM: negative Nose Congestion Respiratoy: Short of Breath; negative Dry Cough and Wheezing Cardiovascular: Chest Pain and Edema; negative Palpitations Gastrointestinal/Abdominal: Abdominal Pain and Nausea; negative Vomiting Genitourinary: negative Dysuria and Hematuria Neurological: negative Headache and Weakness Musculoskeletal: negative Back Pain Integumentary: negative Rash Hematologic/Lymphatic: negative Easy Bleeding and Easy Bruising Endocrine: negative Decreased Appetite Psychiatric: negative Depression All Other Systems: Reviewed and Negative PE Vitals Vitals: Temperature 97.9 F Pulse Rate 76 Respiratory Rate 18 Blood Pressure [Left Arm] 118/52 Blood Pressure [Right Arm] 119/68 Blood Pressure 144/68 O2 Sat by Pulse Oximetry 90 General Limitations: No Limitations General Appearance: Alert, In No Apparent Distress and Obese Head Head Exam: Normal Inspection, Atraumatic and Normocephalic Eyes Eye exam: Normal Appearance, PERRL and EOMI; negative Scleral Icterus ENT ENT Exam: Normal Exam, Normal Oropharynx and Mucous Membranes Moist Chest Chest Inspection: Normal Inspection; negative Tenderness Respiratory Respiratory Exam: Normal Lung Sounds Bilat; negative Prolonged Expiratory Phase and Respiratory Distress Respiratory Exam: Bilateral: Rales (bibasilar) Cardiovascular Cardiovascular Exam: Regular Rate and Normal Rhythm Pulse: Normal, Radial, Left and Right Edema: 1 and Bilateral Abdominal Exam Abdominal Exam: Normal Bowel Sounds, Soft and Tenderness Abdominal Tenderness: negative Epigastrium Extremities Extremities Exam: Normal Inspection, Full ROM, Normal Capillary Refill and Edema Back Back Exam: Normal Inspection and Full ROM Neurologic Neurological Exam: Alert, Oriented X3 and Normal Gait; negative Motor Sensory Deficit Psychiatric Psychiatric Exam: Normal Affect and Normal Mood Skin Skin Exam: Warm, Dry and Intact MDM Additional Information Additional Information Obtained From: Old Records Differential Diagnosis Differential Diagnosis: Angina, CHF, Gastritis, Myocardial Infarction and Pneumonia (copd) COURSE Reevaluation 1st: Improved (pt feeling better. Still having some chest tightness. Will given Duoneb x1. Continue to monitor.) 2nd: Unchanged (pt still having some chest pain. Pain improved with morphine. no change with duoneb. Will admi) Consultation Consultation Comments: Spoke to Dr. Barnes for admission, agree with plan. Will see in hospital in AM Education/Counseling Education/Counseling: Patient, Education and Counseling Educated On: Treatment, Diagnosis, Prognosis and Needs for Follow Up (pcp) ROR Labs Reviewed Laboratory Results Reviewed?: Yes Result Diagrams: 10/13/19 00:00 10/13/19 00:00 Laboratory: WBC 11.7 X10^3/uL (3.6-10.0) H 10/13/19 00:00 RBC 3.35 X10^6/uL (3.5-5.4) L 10/13/19 00:00 Hgb 11.4 g/dL (12.0-16.0) L 10/13/19 00:00 Hct 34.8 % (36.0-47.0) L 10/13/19 00:00 MCV 103.9 fL (80.0-100.0) H 10/13/19 00:00 MCH 34.0 pg (27.0-34.0) 10/13/19 00:00 MCHC 32.7 g/dL (33.0-35.0) L 10/13/19 00:00 RDW 15.6 % (11.6-16.5) 10/13/19 00:00 Plt Count 247 X10^3/uL (150.0-450.0) 10/13/19 00:00 MPV 9.1 fL (7.4-11.0) 10/13/19 00:00 Neut % (Auto) 69.5 % (42.0-75.0) 10/13/19 00:00 Lymph % (Auto) 21.6 % (21.0-51.0) 10/13/19 00:00 [place] % (Auto) 7.2 % (0.0-13.0) 10/13/19 00:00 Eos % (Auto) 1.0 % (0.9-2.9) 10/13/19 00:00 Baso % (Auto) 0.7 % (0.2-1.0) 10/13/19 00:00 Neut # (Auto) 8.2 x10^3/uL (2.2-4.8) H 10/13/19 00:00 Lymph # (Auto) 2.5 X10^3/uL (1.3-2.9) 10/13/19 00:00 [place] # (Auto) 0.8 x10^3/uL (0.3-0.8) 10/13/19 00:00 Eos # (Auto) 0.1 x10^3/uL (0.0-0.2) 10/13/19 00:00 Baso # (Auto) 0.1 X10^3/uL (0.0-0.1) 10/13/19 00:00 Absolute Nucleated RBC 0.0 /100WBC 10/13/19 00:00 Sodium 143 mmol/L (136-145) 10/13/19 00:00 Corrected Sodium TNP 10/13/19 00:00 Potassium 3.9 mmol/L (3.5-5.1) 10/13/19 00:00 Chloride 104 mmol/L (98-107) 10/13/19 00:00 Carbon Dioxide 29.5 mmol/L (21-32) 10/13/19 00:00 BUN 25 mg/dL (7-18) H 10/13/19 00:00 Creatinine 1.05 mg/dL (0.55-1.02) H 10/13/19 00:00 Est GFR (MDRD) Af Amer > 60 (>60) 10/13/19 00:00 Est GFR (MDRD) Non-Af 56 (>60) L 10/13/19 00:00 Glucose 100 mg/dL (65-99) H 10/13/19 00:00 Calcium 9.0 mg/dL (8.5-10.1) 10/13/19 00:00 Troponin I < 0.02 ng/mL (0-1.5) 10/13/19 00:00 B-Natriuretic Peptide 52.2 pg/mL (0-79) 10/13/19 00:00 Lipase 56 Units/L (73-393) L 10/13/19 00:00 Other Results Comments: WBC 11.7 Hb 11.4 Cr 1.05 BUn 25 Trop neg BNP 52 Lip 56 Repeat EKG: NSR 80, nml axis, nml ST, no change from prior. interpreted by me XRAY XRAY Interpreted by: Radiologist XRAY Findings: CXR: CM with pulmonary vasular congestions EKG Rate: 74 [place]: Normal Rhythm: NSR Block: None Hypertrophy: None ST: Nonsp (interpeted by me.) Opioid Opioid Risk Tool Total: 0 Total Score Risk Category: Low Risk Copyright: [facility] predicting aberrant behaviors Diagnosis Discharge Problem: Chest pain Qualifiers: Chest pain type: unspecified Qualified Code(s): R07.9 - Chest pain, unspecified ADDITIONAL NOTES Additional Notes Additional Notes: I have personally reviewed your medications, lab results, imaging and time was spent discussion results. Patient educated on their health issue. They verbalized their understanding and agreed with plan of care. Condition: Stable Disposition: Admission
[2019-10-13 00:16] LABS: BASOPHILS # (AUTO) 0.1 X10^3/uL (0.0-0.1); BASOPHILS % (AUTO) 0.7 % (0.2-1.0); EOSINOPHILS # (AUTO) 0.1 x10^3/uL (0.0-0.2); HEMATOCRIT 34.8 % (36.0-47.0); HEMOGLOBIN 11.4 g/dL (12.0-16.0); LYMPHOCYTES # (AUTO) 2.5 X10^3/uL (1.3-2.9); LYMPHOCYTES % (AUTO) 21.6 % (21.0-51.0); MEAN CORPUSCULAR HGB CONC 32.7 g/dL (33.0-35.0); MEAN CORPUSCULAR VOLUME 103.9 fL (80.0-100.0); MEAN PLATELET VOLUME 9.1 fL (7.4-11.0); MONOCYTES # (AUTO) 0.8 x10^3/uL (0.3-0.8); MONOCYTES % (AUTO) 7.2 % (0.0-13.0); NEUTROPHILS # (AUTO) 8.2 x10^3/uL (2.2-4.8); NEUTROPHILS % (AUTO) 69.5 % (42.0-75.0); PLATELET COUNT 247 X10^3/uL (150.0-450.0); RED BLOOD COUNT 3.35 X10^6/uL (3.5-5.4); RED CELL DISTRIBUTION WIDTH 15.6 % (11.6-16.5); WHITE BLOOD COUNT 11.7 X10^3/uL (3.6-10.0)
--- NOTE | 2019-10-13 00:22 | RAD ---
Chest, one view Indication: Squeezing chest pain Comparison: 09/21/2019 Findings: Patient is rotated toward the right. Accounting for this, the cardiac silhouette is moderately enlarged. There is pulmonary vascular congestion without overt edema. No focal infiltrate or significant effusion is identified. No pneumothorax. Impression: Moderate cardiomegaly and mild pulmonary vascular congestion without overt edema. Reported By:
[2019-10-13 00:24] LABS: BLOOD UREA NITROGEN 25 mg/dL (7-18); CARBON DIOXIDE 29.5 mmol/L (21-32); CHLORIDE 104 mmol/L (98-107); CREATININE 1.05 mg/dL (0.55-1.02); SODIUM 143 mmol/L (136-145); TROPONIN I < 0.02 ng/mL (0-1.5); eGFR NON BLACK RACES 56 (>60)
[2019-10-13] MEDS ORDERED: DUONEB 0.5 MG/3 MG NEB ONE (00:46)
[2019-10-13] MEDS ORDERED: LASIX PO ONE (00:49)
[2019-10-13] MEDS ORDERED: LASIX ONE (00:51)
[2019-10-13] MEDS ORDERED: DUONEB 0.5 MG/3 MG ONE (00:56)
[2019-10-13] MEDS ORDERED: MORPHINE SULFATE INJ 2 MG INJ IVP ONE (01:26)
[2019-10-13] MEDS ORDERED: MORPHINE SULFATE INJ 2 MG INJ ONE (01:53)
[2019-10-13 05:16] LABS: BASOPHILS % (AUTO) 0.3 % (0.2-1.0); EOSINOPHILS % (AUTO) 0.4 % (0.9-2.9); HEMATOCRIT 34.1 % (36.0-47.0); HEMOGLOBIN 11.5 g/dL (12.0-16.0); LYMPHOCYTES # (AUTO) 1.5 X10^3/uL (1.3-2.9); LYMPHOCYTES % (AUTO) 13.4 % (21.0-51.0); MEAN CORPUSCULAR HEMOGLOBIN 34.6 pg (27.0-34.0); MEAN CORPUSCULAR HGB CONC 33.7 g/dL (33.0-35.0); MEAN CORPUSCULAR VOLUME 102.6 fL (80.0-100.0); MEAN PLATELET VOLUME 8.8 fL (7.4-11.0); MONOCYTES # (AUTO) 0.8 x10^3/uL (0.3-0.8); MONOCYTES % (AUTO) 7.8 % (0.0-13.0); NEUTROPHILS # (AUTO) 8.5 x10^3/uL (2.2-4.8); NEUTROPHILS % (AUTO) 78.1 % (42.0-75.0); PLATELET COUNT 233 X10^3/uL (150.0-450.0); RED BLOOD COUNT 3.32 X10^6/uL (3.5-5.4); RED CELL DISTRIBUTION WIDTH 15.7 % (11.6-16.5); WHITE BLOOD COUNT 10.8 X10^3/uL (3.6-10.0)
[2019-10-13 05:30] LABS: BLOOD UREA NITROGEN 23 mg/dL (7-18); CALCIUM 8.7 mg/dL (8.5-10.1); CARBON DIOXIDE 31.4 mmol/L (21-32); CHLORIDE 103 mmol/L (98-107); CREATININE 0.98 mg/dL (0.55-1.02); SODIUM 143 mmol/L (136-145); TROPONIN I < 0.02 ng/mL (0-1.5); eGFR NON BLACK RACES > 60 (>60)
[2019-10-13] MEDS ORDERED: ASPIRIN 81 MG CHEWTAB PO SCH (09:00)
[2019-10-13] MEDS ORDERED: LASIX PO SCH (09:00)
[2019-10-13] MEDS ORDERED: LASIX IVP SCH (09:00)
[2019-10-13] MEDS: LEVAQUIN PREMIX IV 500 MG 500 MG/100 ML BAG IV SCH (09:06)
[2019-10-13] MEDS: LASIX IVP SCH ×2 (09:06→20:23)
[2019-10-13] MEDS: LOPRESSOR TAB 50 MG PO SCH ×2 (09:06→20:22)
[2019-10-13] MEDS ORDERED: NS 500 ML IV 500 ML IV ONE (09:09)
[2019-10-13] MEDS: MORPHINE SULFATE INJ 2 MG INJ IVP PRN ×4 (09:14→22:05)
[2019-10-13] MEDS: SOLU-Medrol 125 MG VIAL IVP SCH ×3 (09:17→21:24)
[2019-10-13] MEDS: PROTONIX INJ 40 MG VIAL IVP SCH (11:23)
--- NOTE | 2019-10-13 15:26 | US ---
Ultrasound gallbladder Indication: Right upper quadrant pain. Pre-surgery evaluation for hip replacement Technique: Dynamic grayscale and color Doppler imaging with spectral analysis of the abdomen focusing on the right upper quadrant Findings: Visualized pancreas region shows no acute abnormality. Limited evaluation of the liver shows prominent size measuring 19.6 cm in length. Portal vein flow is normal and hepatopetal. The gallbladder is mildly dilated with a wall thickness of 2 mm. Sludge is seen in the gallbladder. The common bile duct measures 3 mm. Right kidney measures 9.8 cm in length without hydronephrosis seen. There is 1.2 cm echogenic focus in the gallbladder which appears mobile, and presumably reflects a small stone, which shows. The IVC is patent. Aorta cannot be visualized. Impression: 1. Probable fatty enlarged liver. Correlate with hepatic biochemical profile. 2. Prominent gallbladder with mobile gallstone. Correlate with HIDA scan to evaluate for gallbladder dysfunction, particularly in the presence of a positive Busch sign Reported By:
--- NOTE | 2019-10-13 15:32 | RAD ---
HISTORY: Pre-surgical evaluation for hip replacement. Abdominal pain. Prior history of CHF, MA and hypertension. Study: Abdomen series with frontal chest Comparison: Chest x-ray done 10/13/2019 and KUB done 05/01/2019. Findings: Trachea is midline. There is cardiomegaly but the heart appears smaller compared to prior studies. There is aortic uncoiling. Very mild pulmonary vascular congestion is seen with prominent central pulmonary arteries. The lungs and pleural spaces are clear. No evidence of CHF, infiltrate, pleural fluid or pneumothorax is seen. Osseous structures are intact. There is no evidence of bowel obstruction or perforation. No free intraperitoneal air or fluid is seen. Moderate stool is present throughout the colon. There is no evidence of significant rectal fecal impaction. Severe multilevel degenerative changes are present involving the lumbar spine with multilevel degenerative disc disease and spondylosis. No opaque stone is seen. IMPRESSION: Cardiomegaly with pulmonary vascular congestion, without CHF. The heart appears slightly smaller compared to the prior study. Lungs are clear. No evidence of bowel obstruction or perforation is seen. Reported By:
--- NOTE | 2019-10-13 16:03 | DR.H&P ---
H&P - History & Physical for Day of: H&P Date: 10/12/19 - Chief Complaint Chief Complaint: CHEST PAIN - History of Present Illness History of Present Illness: 64yo female presented for CP by EMS. 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 She reports SOB, nausea, but denies any diaphoresis or vomiting. She had CAD with stent and on A SA. She was given SL nitro by EMS w/o relief. Denies any reflux or wheezing. She has history of CHF and has been out of her Lasix. Pt heart cath last year. Pt was admitted for treatment of acute illness - Past Medical History Past Medical History: Hypertension, Anxiety, COPD, GERD, Arthritis, CHF - Past Surgical History Surgical History: Angioplasty/Stents, Appendectomy, Hysterectomy, Ortho Surgery - Family History Family Medical History: Coronary Artery Disease, Heart Failure, Sudden Cardiac - Social History Does patient currently use any type of tobacco product: Yes Have you used tobacco products in the last 12 months: Yes Type of Tobacco Use: Cigarettes Alcohol Use: None Drug Use: None - Medications Home Medications: gabapentin [From Neurontin] Allergy (Verified 10/13/19 03:31) pregabalin [From Lyrica] Allergy (Verified 10/13/19 03:31) CONTINUE taking the following medications bupropion HCl 150 mg PO DAILY 10/13/19 [History] meloxicam 7.5 mg PO DAILY 10/13/19 [History] metoprolol tartrate 50 mg PO BID 10/13/19 [History] potassium chloride 20 meq PO DAILY 10/13/19 [History] promethazine 25 mg PO TID PRN 10/13/19 [History] ropinirole 2 mg PO TID 10/13/19 [History] sucralfate 1 g PO QID 10/13/19 [History] tizanidine 6 mg PO TID PRN 10/13/19 [History] - Review of Systems Constitutional: Weakness Eyes: No Symptoms Reported ENT: No Symptoms Reported Respiratory: Shortness of Breath, SOB with Excertion Cardiovascular: Chest Pain, Edema Gastrointestinal: Nausea, Vomiting, Abdominal Pain Genitourinary: No Symptoms Reported Musculoskeletal: Back Pain, Leg Pain Skin: No Symptoms Reported Neurological: No Symptoms Reported - Physical Exam Vital Signs: Temperature 99.2 F Pulse Rate [Right Radial] 71 Pulse Rate 84 Respiratory Rate 17 Blood Pressure [Left Arm] 118/52 Blood Pressure [Right Arm] 136/66 Blood Pressure 135/58 O2 Sat by Pulse Oximetry 93 Oriented: Normal Eyes: Normal Ear: Normal Nose: Normal Throat: Normal Respiratory: Wheezes Throughout (bilateral lower exp wheezes), RLL Diminished, LLL Diminished Cardiovascular: Tachycardia : Normal Tenderness: Epigastric Skin: Decreased Turgur Musculoskeletal: Back:Lumbar Psychiatric: Anxiety Affect: Anxious Speech Pattern: Clear, Appropriate - Assessment/Plan (1) Chest pain Qualifiers: Chest pain type: unspecified Qualified Code(s): R07.9 - Chest pain, unspecified Status: Acute Plan: ADMIT SERIAL CE AND EKG. CXR ON ADMISSION, RESP CONSULT SPUTUM SPECIMEN. PAIN CONTROL, BP MONITORING, SUPPLEMENTAL O2. VERIFY HOME MEDICATIONS (2) COPD exacerbation Status: Acute (3) Gastroenteritis Status: Acute (4) Arthritis Status: Chronic - Allergies Allergies/Adverse Reactions: Allergies Allergy/AdvReac Type Severity Reaction Status Date / Time gabapentin [From Neurontin] Allergy Verified 10/13/19 03:31 pregabalin [From Lyrica] Allergy Verified 10/13/19 03:31
--- NOTE | 2019-10-13 16:12 | PCM.PROG ---
Progress Note - Progress Note for Day of Date of Exam: 10/13/19 - Subjective Subjective: 64 WF ER ADMISSION WITH CO CHEST PAIN. PT STATES I THINK IT IS MY STOMACH. PT CO EPIGASTRIC PAIN, N/V. REPORTS PAIN IS WORSE AFTER MEALS. PT IS NPO FOR GB US, AND GI CONSULT WITH DR ROGERS. PT CURRENTLY ON IV ATBX, RESP THERAPY, SUPPLEMENTAL O2 - Past Medical Family Social History Past Med/Fam/Surg Hx: No changes since H&P Allergies: Allergies gabapentin [From Neurontin] Allergy (Verified 10/13/19 03:31) pregabalin [From Lyrica] Allergy (Verified 10/13/19 03:31) - Review of Systems ROS: No change since H&P - Vital Signs and I&O's Vital Signs: Temperature 99.2 F Pulse Rate [Right Radial] 71 Pulse Rate 84 Respiratory Rate 17 Blood Pressure [Left Arm] 118/52 Blood Pressure [Right Arm] 136/66 Blood Pressure 135/58 O2 Sat by Pulse Oximetry 93 Intake and Output: Intake & Output 10/11/19 10/12/19 10/13/19 10/14/19 11:59 11:59 11:59 11:59 Intake Total 240 / 240 Balance 240 / 240 - Physical Exam Oriented: Normal Eyes: Normal Ear: Normal Nose: Normal Throat: Normal Respiratory: Diminished, Wheezes Cardiovascular: Tachycardia : Normal Tenderness: Epigastric Skin: Decreased Turgur Musculoskeletal: Back:Lumbar Psychiatric: Anxiety Affect: Anxious Speech Pattern: Clear, Appropriate - Laboratory and Diagnostics Result Diagrams: 10/13/19 04:36 10/13/19 04:36 Labs: Laboratory WBC 10.8 X10^3/uL (3.6-10.0) H 10/13/19 04:36 RBC 3.32 X10^6/uL (3.5-5.4) L 10/13/19 04:36 Hgb 11.5 g/dL (12.0-16.0) L 10/13/19 04:36 Hct 34.1 % (36.0-47.0) L 10/13/19 04:36 MCV 102.6 fL (80.0-100.0) H 10/13/19 04:36 MCH 34.6 pg (27.0-34.0) H 10/13/19 04:36 MCHC 33.7 g/dL (33.0-35.0) 10/13/19 04:36 RDW 15.7 % (11.6-16.5) 10/13/19 04:36 Plt Count 233 X10^3/uL (150.0-450.0) 10/13/19 04:36 MPV 8.8 fL (7.4-11.0) 10/13/19 04:36 Neut % (Auto) 78.1 % (42.0-75.0) H 10/13/19 04:36 Lymph % (Auto) 13.4 % (21.0-51.0) L 10/13/19 04:36 [place] % (Auto) 7.8 % (0.0-13.0) 10/13/19 04:36 Eos % (Auto) 0.4 % (0.9-2.9) L 10/13/19 04:36 Baso % (Auto) 0.3 % (0.2-1.0) 10/13/19 04:36 Neut # (Auto) 8.5 x10^3/uL (2.2-4.8) H 10/13/19 04:36 Lymph # (Auto) 1.5 X10^3/uL (1.3-2.9) 10/13/19 04:36 [place] # (Auto) 0.8 x10^3/uL (0.3-0.8) 10/13/19 04:36 Eos # (Auto) 0.0 x10^3/uL (0.0-0.2) 10/13/19 04:36 Baso # (Auto) 0.0 X10^3/uL (0.0-0.1) 10/13/19 04:36 Absolute Nucleated RBC 0.0 /100WBC 10/13/19 04:36 Sodium 143 mmol/L (136-145) 10/13/19 04:36 Corrected Sodium TNP 10/13/19 04:36 Potassium 3.7 mmol/L (3.5-5.1) 10/13/19 04:36 Chloride 103 mmol/L (98-107) 10/13/19 04:36 Carbon Dioxide 31.4 mmol/L (21-32) 10/13/19 04:36 BUN 23 mg/dL (7-18) H 10/13/19 04:36 Creatinine 0.98 mg/dL (0.55-1.02) 10/13/19 04:36 Est GFR (MDRD) Af Amer > 60 (>60) 10/13/19 04:36 Est GFR (MDRD) Non-Af > 60 (>60) 10/13/19 04:36 Glucose 96 mg/dL (65-99) 10/13/19 04:36 Calcium 8.7 mg/dL (8.5-10.1) 10/13/19 04:36 Troponin I < 0.02 ng/mL (0-1.5) 10/13/19 04:36 B-Natriuretic Peptide 52.2 pg/mL (0-79) 10/13/19 00:00 Lipase 56 Units/L (73-393) L 10/13/19 00:00 - Plan (1) Chest pain Status: Acute Qualifiers: Chest pain type: unspecified Qualified Code(s): R07.9 - Chest pain, unspecified Plan: SERIAL CE AND EKG. CXR ON ADMISSION, RESP CONSULT SPUTUM SPECIMEN. PAIN CONTROL, BP MONITORING, SUPPLEMENTAL O2. VERIFY HOME MEDICATIONS, NPO FOR GB US. GI, CONSULT PPI THERAPY, NAUSEA CONTROL (2) COPD exacerbation Status: Acute (3) Gastroenteritis Status: Acute (4) Arthritis Status: Chronic
[2019-10-13] MEDS ORDERED: ZANAFLEX PO PRN (16:13)
[2019-10-13] MEDS: REQUIP PO SCH ×2 (18:20→21:24)
[2019-10-13] MEDS: WELLBUTRIN XL 150 MG (DAILY) PO SCH (18:20)
[2019-10-13] MEDS: DUONEB 0.5 MG/3 MG NEB PRN (18:25)
[2019-10-13] MEDS ORDERED: LOPRESSOR TAB 50 MG PO SCH (21:00)
[2019-10-14] MEDS: DUONEB 0.5 MG/3 MG NEB PRN ×4 (00:07→17:21)
[2019-10-14] MEDS: MORPHINE SULFATE INJ 2 MG INJ IVP PRN ×2 (02:19→06:02)
[2019-10-14] MEDS: REQUIP PO SCH ×3 (05:23→21:21)
[2019-10-14 05:45] LABS: BASOPHILS % (AUTO) 0.1 % (0.2-1.0); HEMATOCRIT 35.2 % (36.0-47.0); HEMOGLOBIN 11.8 g/dL (12.0-16.0); LYMPHOCYTES # (AUTO) 0.6 X10^3/uL (1.3-2.9); MEAN CORPUSCULAR HEMOGLOBIN 35.1 pg (27.0-34.0); MEAN CORPUSCULAR HGB CONC 33.6 g/dL (33.0-35.0); MEAN CORPUSCULAR VOLUME 104.3 fL (80.0-100.0); MEAN PLATELET VOLUME 9.3 fL (7.4-11.0); MONOCYTES # (AUTO) 0.3 x10^3/uL (0.3-0.8); MONOCYTES % (AUTO) 3.6 % (0.0-13.0); NEUTROPHILS # (AUTO) 6.2 x10^3/uL (2.2-4.8); NEUTROPHILS % (AUTO) 88.3 % (42.0-75.0); PLATELET COUNT 250 X10^3/uL (150.0-450.0); RED BLOOD COUNT 3.38 X10^6/uL (3.5-5.4); RED CELL DISTRIBUTION WIDTH 15.7 % (11.6-16.5)
[2019-10-14 05:57] LABS: ALANINE AMINOTRANSFERASE 45 Units/L (12-78); ALBUMIN 3.5 g/dL (3.4-5.0); ALKALINE PHOSPHATASE 90 Units/L (46-116); ASPARTATE AMINO TRANSFERASE 28 Units/L (15-37); BLOOD UREA NITROGEN 23 mg/dL (7-18); CALCIUM 8.7 mg/dL (8.5-10.1); CHLORIDE 101 mmol/L (98-107); COR NA(FOR HYPERGLY) 142 mmol/L (136-145); CREATININE 0.97 mg/dL (0.55-1.02); SODIUM 141 mmol/L (136-145); TOTAL PROTEIN 7.8 g/dL (6.4-8.2); eGFR NON BLACK RACES > 60 (>60)
[2019-10-14] MEDS ORDERED: LR 1000 ML IV 1,000 ML IV ONE (09:12)
[2019-10-14] MEDS: LOPRESSOR TAB 50 MG PO SCH ×2 (09:14→20:04)
[2019-10-14] MEDS ORDERED: LEVAQUIN PREMIX IV 500 MG 500 MG/100 ML BAG IV ONE (09:20)
[2019-10-14] MEDS: LEVAQUIN PREMIX IV 500 MG 500 MG/100 ML BAG IV SCH (09:55)
[2019-10-14] MEDS ORDERED: BACTROBAN TOPICAL OINT ONE (11:17)
[2019-10-14] MEDS ORDERED: PHENERGAN INJ 25 MG IM PRN (11:40)
[2019-10-14] MEDS ORDERED: BENADRYL INJ 50 MG VIAL IVP PRN (11:40)
[2019-10-14] MEDS ORDERED: ZOFRAN INJ 4 MG VIAL IVP PRN (11:40)
[2019-10-14] MEDS ORDERED: REGLAN INJ 10 MG VIAL IVP PRN (11:40)
[2019-10-14] MEDS ORDERED: DILAUDID INJ ONE (11:43)
[2019-10-14] MEDS: DILAUDID INJ IVP PRN ×4 (11:45→20:04)
--- NOTE | 2019-10-14 11:56 | OR.IMMED ---
Immediate Post-Op Note - Immediate Post-Op Note Pre-Op Diagnosis: acute cholecystitis Post-Op Diagnosis: acute calculus cholecystitis with large distended GB . abdominal adhesions in the lower abdomen involving the small bowel . morbid obesity . Procedure: lap juan carlos . Surgeon/Client Portfolio Manager: Devon Specimens Removed: GB with contentd . Drains: NONE Complications: none Condition: Stable (start on clear liquid , f/u in 10 days .)
[2019-10-14] MEDS: ASPIRIN EC 81 MG PO SCH (11:57)
[2019-10-14] MEDS: WELLBUTRIN XL 150 MG (DAILY) PO SCH (13:24)
[2019-10-14] MEDS: PROTONIX INJ 40 MG VIAL IVP SCH (13:24)
[2019-10-14] MEDS: LOVENOX INJ 40 MG SYR SC SCH (13:25)
[2019-10-14] MEDS ORDERED: NEOSTIGMINE INJ ONE (14:43)
[2019-10-14] MEDS ORDERED: ULTANE GAS IN ONE (14:43)
[2019-10-14] MEDS ORDERED: ROBINUL ONE (14:43)
[2019-10-14] MEDS ORDERED: QUELICIN (OR ANECTINE) ONE (14:43)
[2019-10-14] MEDS ORDERED: ZOFRAN INJ 4 MG VIAL ONE (14:43)
[2019-10-14] MEDS ORDERED: AMIDATE INJ 40 MG VIAL ONE (14:43)
[2019-10-14] MEDS ORDERED: VERSED ONE (14:43)
[2019-10-14] MEDS ORDERED: NORMODYNE INJ 100 MG VIAL ONE (14:43)
[2019-10-14] MEDS ORDERED: TORADOL 30 MG VIAL ONE (14:43)
[2019-10-14] MEDS ORDERED: DECADRON INJ ONE (14:43)
[2019-10-14] MEDS ORDERED: ZEMURON ONE (14:43)
--- NOTE | 2019-10-14 19:47 | PCM.PROG ---
Progress Note - Progress Note for Day of Date of Exam: 10/14/19 - Subjective Subjective: 64 WF ER ADMISSION WITH CO CHEST PAIN. PT STATES I THINK IT IS MY STOMACH. PT CO EPIGASTRIC PAIN, N/V. REPORTS PAIN IS WORSE AFTER MEALS. PT WAS STARTED ON PAIN CONTROL WITH PPI THERAPY, SERIAL CE AND EKG REVIEWED WITH PT. PT GB US REVEALED GALLSTONE. DR ROGERS CONSULTING WITH PLANS FOR LAP TIBURCIO TODAY. PT IS NPO FOR PROCEDURE. PLAN TO CONTINUE RESP THERAPY, IV ATBX, POST OPERATIVE PLAN OF CARE - Past Medical Family Social History Past Med/Fam/Surg Hx: No changes since H&P Allergies: Allergies gabapentin [From Neurontin] Allergy (Verified 10/13/19 03:31) pregabalin [From Lyrica] Allergy (Verified 10/13/19 03:31) - Review of Systems ROS: No change since H&P - Vital Signs and I&O's Vital Signs: Temperature 98.6 F Pulse Rate [Right Radial] 74 Pulse Rate 78 Respiratory Rate 18 Blood Pressure [Left Arm] 118/52 Blood Pressure [Right Arm] 121/68 Blood Pressure 149/70 O2 Sat by Pulse Oximetry 93 Intake and Output: Intake & Output 10/12/19 10/13/19 10/14/19 10/15/19 11:59 11:59 11:59 11:59 Intake Total 240 / 240 6800 / 6800 240 / 240 Output Total 5900 / 5900 1500 / 1500 Balance 240 / 240 900 / 900 -1260 / -1260 - Physical Exam Oriented: Normal Eyes: Normal Ear: Normal Nose: Normal Throat: Normal Respiratory: Diminished, Wheezes Cardiovascular: Tachycardia : Normal Tenderness: RUQ, Epigastric Skin: Decreased Turgur Musculoskeletal: Back:Lumbar Psychiatric: Anxiety Mood Description: Calm Affect: Anxious Speech Pattern: Clear, Appropriate - Laboratory and Diagnostics Result Diagrams: 10/14/19 05:06 10/14/19 05:06 Labs: Laboratory WBC 7.0 X10^3/uL (3.6-10.0) 10/14/19 05:06 RBC 3.38 X10^6/uL (3.5-5.4) L 10/14/19 05:06 Hgb 11.8 g/dL (12.0-16.0) L 10/14/19 05:06 Hct 35.2 % (36.0-47.0) L 10/14/19 05:06 MCV 104.3 fL (80.0-100.0) H 10/14/19 05:06 MCH 35.1 pg (27.0-34.0) H 10/14/19 05:06 MCHC 33.6 g/dL (33.0-35.0) 10/14/19 05:06 RDW 15.7 % (11.6-16.5) 10/14/19 05:06 Plt Count 250 X10^3/uL (150.0-450.0) 10/14/19 05:06 MPV 9.3 fL (7.4-11.0) 10/14/19 05:06 Neut % (Auto) 88.3 % (42.0-75.0) H 10/14/19 05:06 Lymph % (Auto) 8.0 % (21.0-51.0) L 10/14/19 05:06 Esmeralda % (Auto) 3.6 % (0.0-13.0) 10/14/19 05:06 Eos % (Auto) 0.0 % (0.9-2.9) L 10/14/19 05:06 Baso % (Auto) 0.1 % (0.2-1.0) L 10/14/19 05:06 Neut # (Auto) 6.2 x10^3/uL (2.2-4.8) H 10/14/19 05:06 Lymph # (Auto) 0.6 X10^3/uL (1.3-2.9) L 10/14/19 05:06 Esmeralda # (Auto) 0.3 x10^3/uL (0.3-0.8) 10/14/19 05:06 Eos # (Auto) 0.0 x10^3/uL (0.0-0.2) 10/14/19 05:06 Baso # (Auto) 0.0 X10^3/uL (0.0-0.1) 10/14/19 05:06 Absolute Nucleated RBC 0.0 /100WBC 10/14/19 05:06 Sodium 141 mmol/L (136-145) 10/14/19 05:06 Corrected Sodium 142 mmol/L (136-145) 10/14/19 05:06 Potassium 3.9 mmol/L (3.5-5.1) 10/14/19 05:06 Chloride 101 mmol/L (98-107) 10/14/19 05:06 Carbon Dioxide 34.0 mmol/L (21-32) H 10/14/19 05:06 BUN 23 mg/dL (7-18) H 10/14/19 05:06 Creatinine 0.97 mg/dL (0.55-1.02) 10/14/19 05:06 Est GFR (MDRD) Af Amer > 60 (>60) 10/14/19 05:06 Est GFR (MDRD) Non-Af > 60 (>60) 10/14/19 05:06 Glucose 138 mg/dL (65-99) H 10/14/19 05:06 Calcium 8.7 mg/dL (8.5-10.1) 10/14/19 05:06 Corrected Calcium TNP 10/14/19 05:06 Total Bilirubin 0.30 mg/dL (0.2-1.0) 10/14/19 05:06 AST 28 Units/L (15-37) 10/14/19 05:06 ALT 45 Units/L (12-78) 10/14/19 05:06 Alkaline Phosphatase 90 Units/L (46-116) 10/14/19 05:06 Troponin I < 0.02 ng/mL (0-1.5) 10/13/19 04:36 B-Natriuretic Peptide 52.2 pg/mL (0-79) 10/13/19 00:00 Total Protein 7.8 g/dL (6.4-8.2) 10/14/19 05:06 Albumin 3.5 g/dL (3.4-5.0) 10/14/19 05:06 Globulin 4.3 g/dL (2.5-4.5) 10/14/19 05:06 Albumin/Globulin Ratio 0.8 Ratio (1.1-2.1) L 10/14/19 05:06 Lipase 56 Units/L (73-393) L 10/13/19 00:00 Tissue Pathology To follow 10/14/19 11:13 - Plan (1) Chest pain Status: Acute Qualifiers: Chest pain type: unspecified Qualified Code(s): R07.9 - Chest pain, unspecified Plan: SERIAL CE AND EKG ON ADMISSION. RESP CONSULT SPUTUM SPECIMEN ON ADMISSION. PAIN CONTROL, BP MONITORING, SUPPLEMENTAL O2. VERIFY HOME MEDICATIONS, NPO LAB TIBURCIO. PPI THERAPY, NAUSEA CONTROL (2) COPD exacerbation Status: Acute (3) Gastroenteritis Status: Acute (4) Arthritis Status: Chronic (5) Gallstone of bile duct with chronic gallbladder inflammation Status: Acute
[2019-10-15] MEDS: DILAUDID INJ IVP PRN ×5 (00:12→20:51)
[2019-10-15] MEDS: DUONEB 0.5 MG/3 MG NEB PRN ×4 (00:12→17:02)
[2019-10-15 05:18] LABS: BASOPHILS % (AUTO) 0 % (0.2-1.0); HEMATOCRIT 33.8 % (36.0-47.0); LYMPHOCYTES # (AUTO) 0.8 X10^3/uL (1.3-2.9); LYMPHOCYTES % (AUTO) 4.4 % (21.0-51.0); MEAN CORPUSCULAR HEMOGLOBIN 34.4 pg (27.0-34.0); MEAN CORPUSCULAR HGB CONC 32.5 g/dL (33.0-35.0); MEAN PLATELET VOLUME 9.4 fL (7.4-11.0); MONOCYTES # (AUTO) 1.5 x10^3/uL (0.3-0.8); MONOCYTES % (AUTO) 8.5 % (0.0-13.0); NEUTROPHILS # (AUTO) 15.3 x10^3/uL (2.2-4.8); NEUTROPHILS % (AUTO) 87.1 % (42.0-75.0); PLATELET COUNT 225 X10^3/uL (150.0-450.0); RED BLOOD COUNT 3.19 X10^6/uL (3.5-5.4); RED CELL DISTRIBUTION WIDTH 15.8 % (11.6-16.5)
[2019-10-15 05:31] LABS: ALANINE AMINOTRANSFERASE 182 Units/L (12-78); ALBUMIN 3.3 g/dL (3.4-5.0); ALKALINE PHOSPHATASE 87 Units/L (46-116); ASPARTATE AMINO TRANSFERASE 159 Units/L (15-37); BLOOD UREA NITROGEN 27 mg/dL (7-18); CALCIUM 8.6 mg/dL (8.5-10.1); CHLORIDE 102 mmol/L (98-107); COR CA(FOR HYPOALB) 9.2 mg/dL (8.5-10.1); CREATININE 1.03 mg/dL (0.55-1.02); SODIUM 141 mmol/L (136-145); TOTAL PROTEIN 7.3 g/dL (6.4-8.2); eGFR NON BLACK RACES 57 (>60)
[2019-10-15] MEDS: REQUIP PO SCH ×3 (05:39→22:01)
[2019-10-15 06:07] LABS: HYPOCHROMASIA SLIGHT; PLATELET MORPHOLOGY COMMENT NORMAL (NORMAL); WHITE BLOOD COUNT 17.5 X10^3/uL (3.6-10.0)
[2019-10-15] MEDS ORDERED: LOVENOX INJ 40 MG SYR SC SCH (09:00)
--- NOTE | 2019-10-15 09:25 | RAD ---
Findings: Examination: AP chest History: COPD SOB Comparison 10/13/2019 Findings: Cardiomegaly with clear peripheral lungs and pleural spaces. There is marked widening of the mediastinum which may be related to a combination of nonstandard projection and vascular dilatation. Impression: Stable cardiomegaly with no pulmonary or pleural lesion identified. Reported By:
[2019-10-15] MEDS: PROTONIX INJ 40 MG VIAL IVP SCH (10:00)
[2019-10-15] MEDS: LEVAQUIN PREMIX IV 500 MG 500 MG/100 ML BAG IV SCH (10:00)
[2019-10-15] MEDS: LOVENOX INJ 40 MG SYR SC SCH (10:00)
[2019-10-15] MEDS: ZOSYN VIAL 3.375 GRAMS 3.375 G in NS 100 ML IV + SPIKE MINIBAG* 100 ML IV SCH ×3 (10:00→21:54)
[2019-10-15] MEDS: ASPIRIN EC 81 MG PO SCH (10:10)
[2019-10-15] MEDS: LOPRESSOR TAB 50 MG PO SCH ×2 (10:10→20:53)
[2019-10-15] MEDS: WELLBUTRIN XL 150 MG (DAILY) PO SCH (10:11)
[2019-10-15] MEDS: ZOFRAN INJ 4 MG VIAL IVP PRN (11:25)
[2019-10-15] MEDS: COLACE CAP 100 MG PO PRN (20:51)
[2019-10-16] MEDS: DUONEB 0.5 MG/3 MG NEB PRN ×4 (00:15→16:44)
[2019-10-16] MEDS: NORCO 5/325 MG TAB PO PRN ×3 (03:41→17:46)
[2019-10-16] MEDS: ZOFRAN INJ 4 MG VIAL IVP PRN (03:45)
[2019-10-16 05:08] LABS: BASOPHILS % (AUTO) 0.1 % (0.2-1.0); EOSINOPHILS % (AUTO) 0.1 % (0.9-2.9); HEMATOCRIT 31.1 % (36.0-47.0); HEMOGLOBIN 10.2 g/dL (12.0-16.0); LYMPHOCYTES # (AUTO) 1.2 X10^3/uL (1.3-2.9); LYMPHOCYTES % (AUTO) 14.4 % (21.0-51.0); MEAN CORPUSCULAR HEMOGLOBIN 34.5 pg (27.0-34.0); MEAN CORPUSCULAR HGB CONC 32.9 g/dL (33.0-35.0); NEUTROPHILS # (AUTO) 6.3 x10^3/uL (2.2-4.8); NEUTROPHILS % (AUTO) 73.4 % (42.0-75.0); PLATELET COUNT 178 X10^3/uL (150.0-450.0); RED BLOOD COUNT 2.97 X10^6/uL (3.5-5.4); RED CELL DISTRIBUTION WIDTH 15.3 % (11.6-16.5)
[2019-10-16 05:20] LABS: ALANINE AMINOTRANSFERASE 380 Units/L (12-78); ALKALINE PHOSPHATASE 135 Units/L (46-116); ASPARTATE AMINO TRANSFERASE 291 Units/L (15-37); BLOOD UREA NITROGEN 18 mg/dL (7-18); CALCIUM 8.5 mg/dL (8.5-10.1); CARBON DIOXIDE 36.6 mmol/L (21-32); CHLORIDE 102 mmol/L (98-107); COR CA(FOR HYPOALB) 9.3 mg/dL (8.5-10.1); CREATININE 0.85 mg/dL (0.55-1.02); SODIUM 140 mmol/L (136-145); TOTAL PROTEIN 6.8 g/dL (6.4-8.2); eGFR NON BLACK RACES > 60 (>60)
[2019-10-16 05:26] LABS: WHITE BLOOD COUNT 8.5 X10^3/uL (3.6-10.0)
[2019-10-16] MEDS: ZOSYN VIAL 3.375 GRAMS 3.375 G in NS 100 ML IV + SPIKE MINIBAG* 100 ML IV SCH ×3 (05:46→20:59)
[2019-10-16] MEDS: REQUIP PO SCH ×3 (05:49→21:00)
[2019-10-16] MEDS ORDERED: ZOFRAN TAB 4 MG PO ONE (08:00)
[2019-10-16] MEDS: LOVENOX INJ 40 MG SYR SC SCH (08:26)
[2019-10-16] MEDS: WELLBUTRIN XL 150 MG (DAILY) PO SCH (08:27)
[2019-10-16] MEDS: LOPRESSOR TAB 50 MG PO SCH ×2 (08:28→21:00)
[2019-10-16] MEDS: ASPIRIN EC 81 MG PO SCH (08:28)
[2019-10-16] MEDS: ZOFRAN TAB 4 MG ONE ×2 (10:16→13:50)
[2019-10-16 11:04] LABS: AMYLASE 204 Units/L (25-115)
[2019-10-16 11:05] LABS: LIPASE 2122 Units/L (73-393)
[2019-10-16] MEDS: DILAUDID INJ IVP PRN ×2 (12:40→18:45)
[2019-10-16] MEDS: PROTONIX INJ 40 MG VIAL IVP SCH (13:41)
[2019-10-16] MEDS: LEVAQUIN PREMIX IV 500 MG 500 MG/100 ML BAG IV SCH (13:50)
[2019-10-16] MEDS ORDERED: NS 500 ML IV 500 ML IV ONE (17:35)
[2019-10-16] MEDS: COLACE CAP 100 MG PO PRN (20:47)
[2019-10-16] MEDS: MILK OF MAGNESIA PO PRN (20:47)
[2019-10-17] MEDS: DILAUDID INJ IVP PRN ×4 (01:45→21:00)
[2019-10-17 05:19] LABS: BASOPHILS % (AUTO) 0.4 % (0.2-1.0); EOSINOPHILS # (AUTO) 0.1 x10^3/uL (0.0-0.2); EOSINOPHILS % (AUTO) 0.8 % (0.9-2.9); HEMATOCRIT 31.2 % (36.0-47.0); HEMOGLOBIN 10.2 g/dL (12.0-16.0); LYMPHOCYTES # (AUTO) 1.5 X10^3/uL (1.3-2.9); LYMPHOCYTES % (AUTO) 18.6 % (21.0-51.0); MEAN CORPUSCULAR HEMOGLOBIN 34.4 pg (27.0-34.0); MEAN CORPUSCULAR HGB CONC 32.8 g/dL (33.0-35.0); MEAN CORPUSCULAR VOLUME 105.1 fL (80.0-100.0); MEAN PLATELET VOLUME 9.3 fL (7.4-11.0); MONOCYTES % (AUTO) 11.8 % (0.0-13.0); NEUTROPHILS # (AUTO) 5.6 x10^3/uL (2.2-4.8); NEUTROPHILS % (AUTO) 68.4 % (42.0-75.0); PLATELET COUNT 181 X10^3/uL (150.0-450.0); RED BLOOD COUNT 2.97 X10^6/uL (3.5-5.4); RED CELL DISTRIBUTION WIDTH 15.2 % (11.6-16.5); WHITE BLOOD COUNT 8.3 X10^3/uL (3.6-10.0)
[2019-10-17 05:42] LABS: ALANINE AMINOTRANSFERASE 306 Units/L (12-78); ALKALINE PHOSPHATASE 155 Units/L (46-116); AMYLASE 139 Units/L (25-115); ASPARTATE AMINO TRANSFERASE 133 Units/L (15-37); BLOOD UREA NITROGEN 12 mg/dL (7-18); CALCIUM 8.4 mg/dL (8.5-10.1); CARBON DIOXIDE 36.7 mmol/L (21-32); CHLORIDE 102 mmol/L (98-107); COR CA(FOR HYPOALB) 9.2 mg/dL (8.5-10.1); CREATININE 0.69 mg/dL (0.55-1.02); LIPASE 142 Units/L (73-393); SODIUM 140 mmol/L (136-145); TOTAL PROTEIN 6.9 g/dL (6.4-8.2); eGFR NON BLACK RACES > 60 (>60)
[2019-10-17] MEDS: REQUIP PO SCH ×4 (06:29→20:45)
[2019-10-17] MEDS: ZOSYN VIAL 3.375 GRAMS 3.375 G in NS 100 ML IV + SPIKE MINIBAG* 100 ML IV SCH ×3 (06:29→21:00)
[2019-10-17 06:31] LABS: PLATELET MORPHOLOGY COMMENT NORMAL (NORMAL); STOMATOCYTES 1+
[2019-10-17] MEDS: PROTONIX INJ 40 MG VIAL IVP SCH (10:00)
[2019-10-17] MEDS: LOVENOX INJ 40 MG SYR SC SCH (10:00)
[2019-10-17] MEDS: WELLBUTRIN XL 150 MG (DAILY) PO SCH ×2 (10:06→17:49)
[2019-10-17] MEDS: LOPRESSOR TAB 50 MG PO SCH ×2 (10:06→22:24)
[2019-10-17] MEDS: ASPIRIN EC 81 MG PO SCH ×2 (10:06→17:49)
[2019-10-17] MEDS ORDERED: XANAX PO ONE (10:33)
[2019-10-17] MEDS ORDERED: BENADRYL INJ 50 MG VIAL IVP ONE (10:33)
[2019-10-17] MEDS ORDERED: BENADRYL INJ 50 MG VIAL ONE (10:37)
[2019-10-17] MEDS ORDERED: XANAX ONE (10:37)
[2019-10-17] MEDS: DUONEB 0.5 MG/3 MG NEB PRN ×2 (11:00→16:38)
--- NOTE | 2019-10-17 17:32 | MRI ---
MR abdomen without contrast MRCP Indication: Elevated LFTs and history of gallstones Comparison: 09/09/2017 CT abdomen and pelvis, 09/11/2017 CT chest and ultrasound abdomen from 10/13/2017 Technique: Multiplanar multi sequence imaging through the abdomen without contrast. MRCP images provided Findings: Cardiomegaly is noted. Bone marrow signal is relatively normal with multilevel spine DJD. The kidneys, adrenal glands, spleen and visualized bowel loops demonstrate no unexpected abnormality. No liver lesion identified. Multilevel spinal canal stenoses noted in the lumbar spine particularly. Study is mildly motion artifact limited. The pancreas appears normal. There is no signal drop seen on out of phase imaging to suggest hepatic steatosis. The gallbladder is not dilated, with heterogeneous T2 signal suggesting gallstones. Common bile duct is measuring 8 mm proximally, and 8 mm distally, without obstructing stone identified. No marked gallbladder wall thickening seen. Circumaortic left renal vein incidentally noted. The MRCP portion of the study is suboptimal due to motion artifact. There is trace fluid adjacent to the caudal edge of the liver on coronal image 21 of the TT fat saturated sequence and axial image 34. Minimal trace fluid is seen adjacent to the gallbladder. Impression: 1. Motion limited study 2. Gallstones are seen within the gallbladder which is not dilated. However, there is trace fluid adjacent to the gallbladder and in the right pericolic gutter/adjacent to the caudal edge of the liver. Therefore, follow-up HIDA scan is recommended to exclude gallbladder dysfunction or chronic cholecystitis 3. Prominent common bile duct but definite obstruction. HIDA scan can confirm patent common bile duct. Reported By:
[2019-10-17] MEDS: NORCO 5/325 MG TAB PO PRN (17:54)
--- NOTE | 2019-10-17 19:03 | PCM.PROG ---
Progress Note - Progress Note for Day of Date of Exam: 10/17/19 - Subjective Subjective: Mrs. Mckeon is a 64-year-old white female, who presented with complaints of chest pain. Serial cardiac enzymes were normal, suspected to be GI in nature. The patient had gallbladder ultrasound revealing gallstones. She had a laparoscopic cholecystectomy per Dr. Degroot and she tolerated this well. Yesterday, the patient was still having a little nausea. Her pain was controlled with regimen today. The patient is complaining of increased pain and nausea. She has been on full liquids and states that she has not passed any gas. Abdominal dressings appear fine on exam. Hemoglobin was 10.2 The patient had significant increase in her liver function tests today. Her bilirubin went to 2.5. AST was 2.9, ALT was 3.80, and alkaline phosphatase was at 135. We did order an amylase and lipase which was elevated at 204 on amylase and lipase 2121. We did make the patient NPO and ordered an MRCP for this AM. Pt's labs improving with bili0.7, ast 133, ltw250, alk phos 155. amylase 139, lipase 142. Pt reports nausea improved since yesterday, pt reports passing gas. - Past Medical Family Social History Past Med/Fam/Surg Hx: No changes since H&P Allergies: Allergies gabapentin [From Neurontin] Allergy (Verified 10/13/19 03:31) pregabalin [From Lyrica] Allergy (Verified 10/13/19 03:31) - Review of Systems ROS: No change since H&P - Vital Signs and I&O's Vital Signs: Temperature 97.8 F Pulse Rate [Right Radial] 72 Pulse Rate 70 Respiratory Rate 20 Blood Pressure [Left Arm] 79/42 Blood Pressure [Right Arm] 133/78 Blood Pressure 149/70 O2 Sat by Pulse Oximetry 93 Intake and Output: Intake & Output 10/15/19 10/16/19 10/17/19 10/18/19 11:59 11:59 11:59 11:59 Intake Total 1762 / 1762 2416 / 2416 1543 / 1543 156 / 156 Output Total 1500 / 1500 150 / 150 Balance 262 / 262 2416 / 2416 1393 / 1393 156 / 156 - Physical Exam Oriented: Normal Eyes: Normal Ear: Normal Nose: Normal Throat: Normal Respiratory: Diminished, Wheezes Cardiovascular: Tachycardia : Normal Tenderness: RUQ, Epigastric Skin: Decreased Turgur Musculoskeletal: Back:Lumbar Psychiatric: Anxiety Mood Description: Calm Affect: Anxious Speech Pattern: Clear - Laboratory and Diagnostics Result Diagrams: 10/17/19 04:31 10/17/19 04:31 Labs: 10/16/19 12:16 Sputum - Expectorated Sputum Sputum Culture - Preliminary 10/16/19 12:16 Sputum - Expectorated Sputum - Final Laboratory WBC 8.3 X10^3/uL (3.6-10.0) 10/17/19 04:31 RBC 2.97 X10^6/uL (3.5-5.4) L 10/17/19 04:31 Hgb 10.2 g/dL (12.0-16.0) L 10/17/19 04:31 Hct 31.2 % (36.0-47.0) L 10/17/19 04:31 MCV 105.1 fL (80.0-100.0) H 10/17/19 04:31 MCH 34.4 pg (27.0-34.0) H 10/17/19 04:31 MCHC 32.8 g/dL (33.0-35.0) L 10/17/19 04:31 RDW 15.2 % (11.6-16.5) 10/17/19 04:31 Plt Count 181 X10^3/uL (150.0-450.0) 10/17/19 04:31 Plt Count Comment Adequate (ADEQUATE) 10/17/19 04:31 MPV 9.3 fL (7.4-11.0) 10/17/19 04:31 Neut % (Auto) 68.4 % (42.0-75.0) 10/17/19 04:31 Lymph % (Auto) 18.6 % (21.0-51.0) L 10/17/19 04:31 Edgar % (Auto) 11.8 % (0.0-13.0) 10/17/19 04:31 Eos % (Auto) 0.8 % (0.9-2.9) L 10/17/19 04:31 Baso % (Auto) 0.4 % (0.2-1.0) 10/17/19 04:31 Neut # (Auto) 5.6 x10^3/uL (2.2-4.8) H 10/17/19 04:31 Lymph # (Auto) 1.5 X10^3/uL (1.3-2.9) 10/17/19 04:31 Edgar # (Auto) 1.0 x10^3/uL (0.3-0.8) H 10/17/19 04:31 Eos # (Auto) 0.1 x10^3/uL (0.0-0.2) 10/17/19 04:31 Baso # (Auto) 0.0 X10^3/uL (0.0-0.1) 10/17/19 04:31 Absolute Nucleated RBC 0.0 /100WBC 10/17/19 04:31 Plt Morphology Comment Normal (NORMAL) 10/17/19 04:31 RBC Morphology Abnormal (NORMAL) A 10/17/19 04:31 Hypochromasia Slight A 10/15/19 04:20 Macrocytosis 1+ A 10/17/19 04:31 Stomatocytes 1+ A 10/17/19 04:31 Sodium 140 mmol/L (136-145) 10/17/19 04:31 Corrected Sodium TNP 10/17/19 04:31 Potassium 4.2 mmol/L (3.5-5.1) 10/17/19 04:31 Chloride 102 mmol/L (98-107) 10/17/19 04:31 Carbon Dioxide 36.7 mmol/L (21-32) H 10/17/19 04:31 BUN 12 mg/dL (7-18) 10/17/19 04:31 Creatinine 0.69 mg/dL (0.55-1.02) 10/17/19 04:31 Est GFR (MDRD) Af Amer > 60 (>60) 10/17/19 04:31 Est GFR (MDRD) Non-Af > 60 (>60) 10/17/19 04:31 Glucose 90 mg/dL (65-99) 10/17/19 04:31 Calcium 8.4 mg/dL (8.5-10.1) L 10/17/19 04:31 Corrected Calcium 9.2 mg/dL (8.5-10.1) 10/17/19 04:31 Total Bilirubin 0.70 mg/dL (0.2-1.0) 10/17/19 04:31 AST 133 Units/L (15-37) H 10/17/19 04:31 ALT 306 Units/L (12-78) H 10/17/19 04:31 Alkaline Phosphatase 155 Units/L (46-116) H 10/17/19 04:31 Troponin I < 0.02 ng/mL (0-1.5) 10/13/19 04:36 B-Natriuretic Peptide 52.2 pg/mL (0-79) 10/13/19 00:00 Total Protein 6.9 g/dL (6.4-8.2) 10/17/19 04:31 Albumin 3.0 g/dL (3.4-5.0) L 10/17/19 04:31 Globulin 3.9 g/dL (2.5-4.5) 10/17/19 04:31 Albumin/Globulin Ratio 0.8 Ratio (1.1-2.1) L 10/17/19 04:31 Amylase 139 Units/L (25-115) H 10/17/19 04:31 Lipase 142 Units/L (73-393) 10/17/19 04:31 Tissue Pathology To follow 10/14/19 11:13 - Plan (1) Acute pancreatitis Status: Acute Plan: NPO, MRCP TODAY R/O BILIARY OBSTRUCTION. CONTINUE PAIN CONTROL, IV HYDRATION. PPI THERAPY. PT/OT (2) Chest pain Status: Acute Qualifiers: Chest pain type: unspecified Qualified Code(s): R07.9 - Chest pain, unspecified Plan: SERIAL CE AND EKG ON ADMISSION. RESP CONSULT SPUTUM SPECIMEN ON ADMISSION. PAIN CONTROL, BP MONITORING, SUPPLEMENTAL O2. VERIFY HOME MEDICATIONS, S/P LAB TIBURCIO. PPI THERAPY, NAUSEA CONTROL (3) COPD exacerbation Status: Acute (4) Gastroenteritis Status: Acute (5) Arthritis Status: Chronic (6) Gallstone of bile duct with chronic gallbladder inflammation Status: Acute
[2019-10-17] MEDS: MILK OF MAGNESIA PO PRN (20:45)
[2019-10-17] MEDS: COLACE CAP 100 MG PO PRN (20:45)
[2019-10-18 05:13] LABS: BASOPHILS % (AUTO) 0.7 % (0.2-1.0); EOSINOPHILS # (AUTO) 0.1 x10^3/uL (0.0-0.2); EOSINOPHILS % (AUTO) 1.2 % (0.9-2.9); HEMATOCRIT 29.8 % (36.0-47.0); HEMOGLOBIN 9.8 g/dL (12.0-16.0); LYMPHOCYTES # (AUTO) 1.3 X10^3/uL (1.3-2.9); LYMPHOCYTES % (AUTO) 18.6 % (21.0-51.0); MEAN CORPUSCULAR HEMOGLOBIN 34.5 pg (27.0-34.0); MEAN CORPUSCULAR VOLUME 104.6 fL (80.0-100.0); MEAN PLATELET VOLUME 9.5 fL (7.4-11.0); MONOCYTES # (AUTO) 0.9 x10^3/uL (0.3-0.8); MONOCYTES % (AUTO) 11.9 % (0.0-13.0); NEUTROPHILS # (AUTO) 4.9 x10^3/uL (2.2-4.8); NEUTROPHILS % (AUTO) 67.6 % (42.0-75.0); PLATELET COUNT 173 X10^3/uL (150.0-450.0); RED BLOOD COUNT 2.85 X10^6/uL (3.5-5.4); RED CELL DISTRIBUTION WIDTH 15.1 % (11.6-16.5); WHITE BLOOD COUNT 7.2 X10^3/uL (3.6-10.0)
[2019-10-18 05:26] LABS: ALANINE AMINOTRANSFERASE 188 Units/L (12-78); ALBUMIN 2.6 g/dL (3.4-5.0); ALKALINE PHOSPHATASE 122 Units/L (46-116); AMYLASE 34 Units/L (25-115); ASPARTATE AMINO TRANSFERASE 47 Units/L (15-37); BLOOD UREA NITROGEN 10 mg/dL (7-18); CARBON DIOXIDE 38.5 mmol/L (21-32); CHLORIDE 104 mmol/L (98-107); COR CA(FOR HYPOALB) 9.1 mg/dL (8.5-10.1); COR NA(FOR HYPERGLY) 143 mmol/L (136-145); CREATININE 0.66 mg/dL (0.55-1.02); LIPASE 59 Units/L (73-393); SODIUM 142 mmol/L (136-145); TOTAL PROTEIN 6.2 g/dL (6.4-8.2); eGFR NON BLACK RACES > 60 (>60)
[2019-10-18] MEDS: DILAUDID INJ IVP PRN ×3 (06:00→18:30)
[2019-10-18] MEDS: REQUIP PO SCH ×3 (06:24→21:28)
[2019-10-18] MEDS: ZOSYN VIAL 3.375 GRAMS 3.375 G in NS 100 ML IV + SPIKE MINIBAG* 100 ML IV SCH ×3 (06:24→21:28)
--- NOTE | 2019-10-18 07:36 | US ---
History: Elevated LFTs Study: Ultrasound of the liver Comparison: October 13, 2019 Findings: The right lobe of the liver measures 18 cm sagittal length, without focal mass. There is appropriate flow in the portal vein and in hepatic veins. The gallbladder is recently surgically absent and there is some hyper echogenicity in the gallbladder fossa. There is also mixed echogenicity and some acoustic shadowing. This area collectively measures about 1.9 x 3.9 x 3.38 cm. The common hepatic duct has increased in size to 6.5 mm diameter. A sagittal image of the right kidney is unremarkable. Impression: Mildly enlarged liver without focal mass. Mixed hyper echogenicity in the gallbladder fossa status post recent cholecystectomy. This may represent some postoperative hemorrhage and postoperative change. Common hepatic duct increased in size to 6.5 mm diameter. Reported By:
[2019-10-18] MEDS: WELLBUTRIN XL 150 MG (DAILY) PO SCH (09:07)
[2019-10-18] MEDS: LOVENOX INJ 40 MG SYR SC SCH (09:07)
[2019-10-18] MEDS: ASPIRIN EC 81 MG PO SCH (09:07)
[2019-10-18] MEDS: LOPRESSOR TAB 50 MG PO SCH ×2 (09:07→21:30)
[2019-10-18] MEDS: PROTONIX INJ 40 MG VIAL IVP SCH (09:07)
[2019-10-18] MEDS: NORCO 5/325 MG TAB PO PRN ×3 (09:08→21:29)
[2019-10-18] MEDS: DUONEB 0.5 MG/3 MG NEB PRN ×2 (10:06→16:52)
[2019-10-18] MEDS: COLACE CAP 100 MG PO PRN (12:16)
[2019-10-18] MEDS: MILK OF MAGNESIA PO PRN (12:17)
[2019-10-19] MEDS: DILAUDID INJ IVP PRN ×2 (03:30→09:40)
[2019-10-19 04:40] LABS: BASOPHILS % (AUTO) 0.5 % (0.2-1.0); EOSINOPHILS # (AUTO) 0.1 x10^3/uL (0.0-0.2); EOSINOPHILS % (AUTO) 1.3 % (0.9-2.9); HEMATOCRIT 31.6 % (36.0-47.0); HEMOGLOBIN 10.3 g/dL (12.0-16.0); LYMPHOCYTES # (AUTO) 1.5 X10^3/uL (1.3-2.9); LYMPHOCYTES % (AUTO) 17.7 % (21.0-51.0); MEAN CORPUSCULAR HEMOGLOBIN 34.5 pg (27.0-34.0); MEAN CORPUSCULAR HGB CONC 32.7 g/dL (33.0-35.0); MEAN CORPUSCULAR VOLUME 105.6 fL (80.0-100.0); MEAN PLATELET VOLUME 9.7 fL (7.4-11.0); MONOCYTES % (AUTO) 11.5 % (0.0-13.0); PLATELET COUNT 205 X10^3/uL (150.0-450.0); RED BLOOD COUNT 2.99 X10^6/uL (3.5-5.4); RED CELL DISTRIBUTION WIDTH 15.3 % (11.6-16.5); WHITE BLOOD COUNT 8.7 X10^3/uL (3.6-10.0)
[2019-10-19 04:48] LABS: ALANINE AMINOTRANSFERASE 148 Units/L (12-78); ALKALINE PHOSPHATASE 124 Units/L (46-116); AMYLASE 28 Units/L (25-115); ASPARTATE AMINO TRANSFERASE 24 Units/L (15-37); BLOOD UREA NITROGEN 10 mg/dL (7-18); CALCIUM 8.5 mg/dL (8.5-10.1); CARBON DIOXIDE 36.5 mmol/L (21-32); CHLORIDE 103 mmol/L (98-107); COR CA(FOR HYPOALB) 9.3 mg/dL (8.5-10.1); CREATININE 0.62 mg/dL (0.55-1.02); LIPASE 55 Units/L (73-393); SODIUM 141 mmol/L (136-145); eGFR NON BLACK RACES > 60 (>60)
[2019-10-19 05:18] LABS: PLATELET MORPHOLOGY COMMENT NORMAL (NORMAL)
[2019-10-19] MEDS: REQUIP PO SCH (05:54)
[2019-10-19] MEDS: ZOSYN VIAL 3.375 GRAMS 3.375 G in NS 100 ML IV + SPIKE MINIBAG* 100 ML IV SCH (05:54)
[2019-10-19] MEDS: ZOFRAN INJ 4 MG VIAL IVP PRN (07:54)
[2019-10-19] MEDS: DUONEB 0.5 MG/3 MG NEB PRN (09:12)
[2019-10-19] MEDS: MILK OF MAGNESIA PO PRN (09:39)
[2019-10-19] MEDS: PROTONIX INJ 40 MG VIAL IVP SCH (09:39)
[2019-10-19] MEDS: COLACE CAP 100 MG PO PRN (09:39)
[2019-10-19] MEDS: ASPIRIN EC 81 MG PO SCH (09:41)
[2019-10-19] MEDS: LOVENOX INJ 40 MG SYR SC SCH (09:41)
[2019-10-19] MEDS: WELLBUTRIN XL 150 MG (DAILY) PO SCH (09:41)
[2019-10-19] MEDS: LOPRESSOR TAB 50 MG PO SCH (09:41)
[2019-10-19 11:04] VITALS: BP 107/66
[2019-10-19] MEDS: NORCO 5/325 MG TAB PO PRN (11:54)
== END 2019-10-19 14:45 | disposition home or self-care (01) | DRG 444 ==
LOC: ER 23:43 → MED/SURG 23:43 → UNDODISOB 10-14 10:12
PROVIDERS: ADMIT Internal Medicine; ATTEND Internal Medicine
DX: R26.89 Other abnormalities of gait and mobility; K80.00 Calculus of gallbladder with acute cholecystitis without obstruction; M13.89 Other specified arthritis, multiple sites; R10.11 Right upper quadrant pain; K52.89 Other specified noninfective gastroenteritis and colitis; K85.90 Acute pancreatitis without necrosis or infection, unspecified; E66.01 Morbid (severe) obesity due to excess calories; J44.1 Chronic obstructive pulmonary disease with (acute) exacerbation; R94.5 Abnormal results of liver function studies; R07.89 Other chest pain; K21.9 Gastro-esophageal reflux disease without esophagitis; R06.02 Shortness of breath; I10 Essential (primary) hypertension; I25.10 Atherosclerotic heart disease of native coronary artery without angina pectoris; F41.8 Other specified anxiety disorders
CPT/HCPCS: 36415; 71010; 71045; 74022; 74181; 76705; 80048; 80053; 82150; 83690; 83880; 84484; 85025; 87070; 87205; 88304; 93005; 94640; 94760; 96365; 96374; 96375; 97110; 97112; 97162; 97166; 99284; A4222; C9113; S0106; G0378; J0330; J1100; J1170; J1200; J1650; J1885; J1940; J1956; J2250; J2270; J2405; J2543; J2710; J2930; J3490; J7040; J7050; J7120; J7620; S0119; S0181

== ENCOUNTER 2021-04-23 16:16 | Observation (INO) ==
--- NOTE | 2021-04-23 16:51 | DR.H&P ---
H&P - History & Physical for Day of: H&P Date: 04/23/21 - Chief Complaint Chief Complaint: SOB, CCC, "LEFT LUNG PAIN" - History of Present Illness History of Present Illness: PT IS 65 WF DIRECT ADMIT FROM DR MALDONADO OFFICE WITH CO SOB, CCC AND INCREASED WHEEZING. PT CO LEFT LATERAL AND UPPER BACK PAIN, RELATED TO "LUNG". PT FAILIED OUTPT THERAPY WITH ROUND OF LEVAQUIN AND WAS SEEN IN ER IN [place] LAST WEEK. PT HAD STRESS TEST, REPORT WAS "OK".PT DENIES ANY KNOWN COVID EXPOSURE. TESTED NEGATIVE FOR COVID LAST WEEK IN [place]. PT CO INCREASED MUCOUS PRODUCTION. PT HAS PMH OF COPD, CHF, HTN, OA, [place], GERD, [place]. PT ADMITTED FOR TREATMENT OF ACUTE ILLNESS. - Past Medical History Past Medical History: Anxiety, Arthritis, CHF, COPD, GERD, [place] - Past Surgical History Surgical History: Angioplasty/Stents, Appendectomy, Cholecystectomy, Hysterectomy, Ortho Surgery - Family History Family Medical History: Coronary Artery Disease, Heart Failure - Social History Does patient currently use any type of tobacco product: No Have you used tobacco products in the last 12 months: No Type of Tobacco Use: None Does any household member use tobacco: No Alcohol Use: None Drug Use: None Risks, benefits, and alternatives of opioids discussed: No - Medications Home Medications: gabapentin [From Neurontin] Allergy (Verified 10/13/19 03:31) pregabalin [From Lyrica] Allergy (Verified 10/13/19 03:31) - Review of Systems Constitutional: Chills, Sweats, Weakness, Malaise. denies: Fever Eyes: No Symptoms Reported ENT: No Symptoms Reported Respiratory: Cough, Shortness of Breath, SOB with Excertion, Pleuritic Pain, Wheezing Cardiovascular: Edema Gastrointestinal: Nausea Genitourinary: No Symptoms Reported Musculoskeletal: Back Pain Skin: No Symptoms Reported Neurological: Weakness - Physical Exam Vital Signs: Blood Pressure [Left Arm] 132/70 Blood Pressure [Right Arm] 127/57 Oriented: Normal Eyes: Normal Ear: Normal Throat: Normal Respiratory: RLL Diminished, LLL Diminished Cardiovascular: Normal : Normal Auscultation: Bowel Sounds: Normal Palpation: Normal Tenderness: Normal Skin: Decreased Turgur Musculoskeletal: Back:Lumbar Psychiatric: Anxiety Affect: Anxious Speech Pattern: Clear, Appropriate - Assessment/Plan (1) Shortness of breath Status: Acute Plan: ADMIT, RESP CONSULT. COVID 19 SWAB ON ADMISSION, CXR, ABG ON ADMISSION. CE AND EKG. ADMISSION LABS, BC AND SPUTUM CULTURE. IV HYDRATION, STRICT I&OS, IV LASIX AND SOLU MEDROL. DVT PREVENTION, DUO NEBS AND SUPPLEMENTAL O2 (2) COPD exacerbation Status: Acute (3) Hypertension Status: Acute (4) CHF (congestive heart failure) Qualifiers: Heart failure type: other Qualified Code(s): I50.9 - Heart failure, unspecified Status: Acute (5) Weakness Status: Acute - Allergies Allergies/Adverse Reactions: Allergies Allergy/AdvReac Type Severity Reaction Status Date / Time gabapentin [From Neurontin] Allergy Verified 10/13/19 03:31 pregabalin [From Lyrica] Allergy Verified 10/13/19 03:31
[2021-04-23] MEDS ORDERED: SOLU-Medrol 125 MG VIAL IVP SCH (17:00)
[2021-04-23] MEDS ORDERED: NS 1000 ML 1,000 ML IV SCH (17:00)
[2021-04-23] MEDS ORDERED: NS 1000 ML 1,000 ML ONE (18:11)
[2021-04-23] MEDS ORDERED: LASIX IVP ONE (18:11)
[2021-04-23] MEDS ORDERED: LEVAQUIN PREMIX IV 500 MG 500 MG/100 ML BAG IV ONE (18:12)
[2021-04-23] MEDS ORDERED: LOVENOX INJ 40 MG SYR SC ONE (18:12)
[2021-04-23] MEDS ORDERED: ROBITUSSIN DM ONE (18:13)
[2021-04-23] MEDS: ROBITUSSIN DM PO SCH ×2 (18:33→22:52)
[2021-04-23 18:34] LABS: ABG ALLEN TEST POS; ABG BASE EXCESS 8.9 mmol/L (-2.0-2.0); ABG HCO3 34.6 mmol/L (22-26)
[2021-04-23] MEDS: PERCOCET TAB 5/325 MG PO PRN ×2 (18:34→22:57)
[2021-04-23] MEDS: LASIX IVP SCH (18:35)
[2021-04-23] MEDS: LOVENOX INJ 40 MG SYR SC SCH (18:36)
[2021-04-23] MEDS: LEVAQUIN PREMIX IV 500 MG 500 MG/100 ML BAG IV SCH (18:42)
[2021-04-23 19:19] LABS: BASOPHILS # (AUTO) 0.1 X10^3/uL (0.0-0.1); BASOPHILS % (AUTO) 0.6 % (0.2-1.0); EOSINOPHILS # (AUTO) 0.1 x10^3/uL (0.0-0.2); EOSINOPHILS % (AUTO) 0.8 % (0.9-2.9); HEMATOCRIT 41.4 % (36.0-47.0); LYMPHOCYTES # (AUTO) 2.1 X10^3/uL (1.3-2.9); LYMPHOCYTES % (AUTO) 22.7 % (21.0-51.0); MEAN CORPUSCULAR HEMOGLOBIN 35.8 pg (27.0-34.0); MEAN CORPUSCULAR HGB CONC 33.9 g/dL (33.0-35.0); MEAN CORPUSCULAR VOLUME 105.8 fL (80.0-100.0); MEAN PLATELET VOLUME 8.3 fL (7.4-11.0); MONOCYTES # (AUTO) 0.9 x10^3/uL (0.3-0.8); MONOCYTES % (AUTO) 10.3 % (0.0-13.0); NEUTROPHILS # (AUTO) 5.9 x10^3/uL (2.2-4.8); NEUTROPHILS % (AUTO) 65.6 % (42.0-75.0); PLATELET COUNT 218 X10^3/uL (150.0-450.0); RED BLOOD COUNT 3.91 X10^6/uL (3.5-5.4); RED CELL DISTRIBUTION WIDTH 14.8 % (11.6-16.5)
[2021-04-23 19:25] LABS: ANISOCYTOSIS 1+; PLATELET MORPHOLOGY COMMENT NORMAL (NORMAL)
[2021-04-23 19:40] LABS: ALANINE AMINOTRANSFERASE 13 Units/L (12-78); ALBUMIN 3.9 g/dL (3.4-5.0); ALKALINE PHOSPHATASE 84 Units/L (46-116); ASPARTATE AMINO TRANSFERASE 13 Units/L (15-37); BLOOD UREA NITROGEN 26 mg/dL (7-18); CALCIUM 9.1 mg/dL (8.5-10.1); CARBON DIOXIDE 32.4 mmol/L (21-32); CHLORIDE 102 mmol/L (98-107); CKMB % 2.1 % (<4); CREATINE KINASE 48 Units/L (26-192); CREATINE KINASE MB < 1.0 ng/mL (0-4.0); CREATININE 0.83 mg/dL (0.55-1.02); SODIUM 142 mmol/L (136-145); TOTAL PROTEIN 7.8 g/dL (6.4-8.2); TROPONIN I < 0.02 ng/mL (0-1.5); eGFR NON BLACK RACES > 60 (>60)
--- NOTE | 2021-04-23 19:42 | RAD ---
EXAM: CHEST X-RAYHISTORY: COPD. Shortness of breath. CHF.TECHNIQUE: AP chest x-ray.COMPARISON: None available.FINDINGS:There is moderate to severe cardiomegaly (stable); concomitant occult pericardial effusion not excluded. There is minimal prominence of the bronchopulmonary markings (significantly improved compared with the previous exam, which may represent moderate CHF in the appropriate clinical setting. There is no acute parenchymal infiltrate, pleural effusion, or pneumothorax seen. The visualized bony structures are within normal limits.IMPRESSION:1. Moderate to severe cardiomegaly (stable); concomitant occult pericardial effusion not excluded.2. Minimal prominence of the bronchopulmonary markings (significantly improved compared with the previous exam, which may represent moderate CHF in the appropriate clinical setting.Electronically signed by: Holly Nicole (Apr 23, 2021 19:40:52)
[2021-04-23] MEDS ORDERED: SALINE 3% 15 ML NEB TX ONE (20:07)
[2021-04-23] MEDS ORDERED: SALINE 3% 15 ML NEB TX NEB ONE (20:20)
[2021-04-23] MEDS: PULMICORT NEB TX 0.5 MG NEB SCH (20:20)
[2021-04-23] MEDS: K-DUR TAB 20 MEQ PO SCH (21:25)
[2021-04-23] MEDS: COLACE CAP 100 MG PO SCH (22:50)
[2021-04-23] MEDS: SOLU-Medrol 40 MG VIAL IVP SCH (22:51)
[2021-04-24] MEDS: XOPENEX 1.25 MG/3 ML NEBULE NEB SCH ×4 (00:03→17:05)
[2021-04-24 00:20] LABS: BILIRUBIN,URINE NEGATIVE (NEGATIVE); BLOOD/HEMOGLOBIN,URINE NEGATIVE (NEGATIVE); GLUCOSE, URINE NEGATIVE (NEGATIVE); KETONES,URINE NEGATIVE (NEGATIVE); LEUKOCYTE ESTERASE ,URINE NEGATIVE (NEGATIVE); NITRITES,URINE NEGATIVE (NEGATIVE); PROTEIN,URINE NEGATIVE (NEGATIVE); UROBILINOGEN,URINE NORMAL (NORMAL)
[2021-04-24 00:24] LABS: APPEARANCE,URINE CLEAR (CLEAR); COLOR,URINE YELLOW (YELLOW)
[2021-04-24] MEDS: PERCOCET TAB 5/325 MG PO PRN ×5 (05:09→22:32)
[2021-04-24] MEDS: SOLU-Medrol 40 MG VIAL IVP SCH ×3 (05:11→22:33)
[2021-04-24 06:42] LABS: BASOPHILS % (AUTO) 0.2 % (0.2-1.0); HEMATOCRIT 43.1 % (36.0-47.0); HEMOGLOBIN 14.3 g/dL (12.0-16.0); LYMPHOCYTES # (AUTO) 0.7 X10^3/uL (1.3-2.9); LYMPHOCYTES % (AUTO) 11.2 % (21.0-51.0); MEAN CORPUSCULAR HEMOGLOBIN 35.3 pg (27.0-34.0); MEAN CORPUSCULAR HGB CONC 33.1 g/dL (33.0-35.0); MEAN CORPUSCULAR VOLUME 106.7 fL (80.0-100.0); MEAN PLATELET VOLUME 8.7 fL (7.4-11.0); MONOCYTES # (AUTO) 0.1 x10^3/uL (0.3-0.8); MONOCYTES % (AUTO) 1.1 % (0.0-13.0); NEUTROPHILS # (AUTO) 5.3 x10^3/uL (2.2-4.8); NEUTROPHILS % (AUTO) 87.5 % (42.0-75.0); PLATELET COUNT 219 X10^3/uL (150.0-450.0); RED BLOOD COUNT 4.04 X10^6/uL (3.5-5.4); RED CELL DISTRIBUTION WIDTH 15.2 % (11.6-16.5); WHITE BLOOD COUNT 6.1 X10^3/uL (3.6-10.0)
[2021-04-24 06:49] LABS: ALANINE AMINOTRANSFERASE 15 Units/L (12-78); ALBUMIN 3.8 g/dL (3.4-5.0); ALKALINE PHOSPHATASE 85 Units/L (46-116); ASPARTATE AMINO TRANSFERASE 15 Units/L (15-37); BLOOD UREA NITROGEN 23 mg/dL (7-18); CALCIUM 8.9 mg/dL (8.5-10.1); CARBON DIOXIDE 32.8 mmol/L (21-32); CHLORIDE 99 mmol/L (98-107); COR NA(FOR HYPERGLY) 142 mmol/L (136-145); SODIUM 139 mmol/L (136-145); TOTAL PROTEIN 7.9 g/dL (6.4-8.2); eGFR NON BLACK RACES > 60 (>60)
[2021-04-24 07:22] LABS: PLATELET MORPHOLOGY COMMENT NORMAL (NORMAL)
[2021-04-24] MEDS: PULMICORT NEB TX 0.5 MG NEB SCH ×2 (08:22→21:00)
[2021-04-24] MEDS: LASIX IVP SCH ×2 (09:03→18:05)
[2021-04-24] MEDS: K-DUR TAB 20 MEQ PO SCH ×2 (09:03→20:17)
[2021-04-24] MEDS: LEVAQUIN PREMIX IV 500 MG 500 MG/100 ML BAG IV SCH (09:04)
[2021-04-24] MEDS: LOVENOX INJ 40 MG SYR SC SCH (09:04)
[2021-04-24] MEDS: ROBITUSSIN DM PO SCH ×4 (09:04→20:17)
[2021-04-24] MEDS: LOPRESSOR TAB 50 MG PO SCH ×2 (10:50→20:17)
[2021-04-24] MEDS: NICOTINE PATCH TD SCH (11:05)
[2021-04-24 14:34] VITALS: BMI 48.4
[2021-04-24] MEDS ORDERED: LOPRESSOR TAB 50 MG PO SCH (18:00)
[2021-04-24] MEDS: COLACE CAP 100 MG PO SCH (20:17)
[2021-04-24] MEDS: ZOFRAN INJ 4 MG VIAL IVP PRN (23:32)
[2021-04-24] MEDS ORDERED: SALINE 0.9% 3 ML NEB TX ONE (23:48)
[2021-04-25] MEDS: XOPENEX 1.25 MG/3 ML NEBULE NEB SCH ×4 (00:15→17:55)
[2021-04-25] MEDS: PERCOCET TAB 5/325 MG PO PRN ×5 (05:04→21:05)
[2021-04-25] MEDS: SOLU-Medrol 40 MG VIAL IVP SCH ×3 (05:04→21:07)
[2021-04-25] MEDS ORDERED: SALINE 0.9% 3 ML NEB TX ONE (05:57)
[2021-04-25 06:10] LABS: BASOPHILS % (AUTO) 0 % (0.2-1.0); HEMATOCRIT 42.2 % (36.0-47.0); HEMOGLOBIN 13.7 g/dL (12.0-16.0); LYMPHOCYTES # (AUTO) 0.5 X10^3/uL (1.3-2.9); LYMPHOCYTES % (AUTO) 7.3 % (21.0-51.0); MEAN CORPUSCULAR HEMOGLOBIN 35.1 pg (27.0-34.0); MEAN CORPUSCULAR HGB CONC 32.5 g/dL (33.0-35.0); MEAN CORPUSCULAR VOLUME 107.9 fL (80.0-100.0); MONOCYTES # (AUTO) 0.3 x10^3/uL (0.3-0.8); MONOCYTES % (AUTO) 3.6 % (0.0-13.0); NEUTROPHILS # (AUTO) 6.3 x10^3/uL (2.2-4.8); NEUTROPHILS % (AUTO) 89.1 % (42.0-75.0); PLATELET COUNT 225 X10^3/uL (150.0-450.0); RED BLOOD COUNT 3.91 X10^6/uL (3.5-5.4); RED CELL DISTRIBUTION WIDTH 14.7 % (11.6-16.5); WHITE BLOOD COUNT 7.1 X10^3/uL (3.6-10.0)
[2021-04-25 06:47] LABS: ALANINE AMINOTRANSFERASE 17 Units/L (12-78); ALBUMIN 3.7 g/dL (3.4-5.0); ALKALINE PHOSPHATASE 81 Units/L (46-116); ASPARTATE AMINO TRANSFERASE 16 Units/L (15-37); BLOOD UREA NITROGEN 27 mg/dL (7-18); CALCIUM 8.9 mg/dL (8.5-10.1); CARBON DIOXIDE 35.2 mmol/L (21-32); CHLORIDE 100 mmol/L (98-107); COR NA(FOR HYPERGLY) 142 mmol/L (136-145); CREATININE 0.92 mg/dL (0.55-1.02); SODIUM 139 mmol/L (136-145); TOTAL PROTEIN 7.5 g/dL (6.4-8.2); eGFR NON BLACK RACES > 60 (>60)
[2021-04-25 06:48] LABS: PLATELET MORPHOLOGY COMMENT NORMAL (NORMAL)
[2021-04-25] MEDS: PULMICORT NEB TX 0.5 MG NEB SCH ×2 (08:38→21:06)
[2021-04-25] MEDS: NICOTINE PATCH TD SCH (09:03)
[2021-04-25] MEDS: LEVAQUIN PREMIX IV 500 MG 500 MG/100 ML BAG IV SCH (09:04)
[2021-04-25] MEDS: ROBITUSSIN DM PO SCH ×4 (09:05→21:07)
[2021-04-25] MEDS: LOPRESSOR TAB 50 MG PO SCH ×2 (09:05→21:07)
[2021-04-25] MEDS: K-DUR TAB 20 MEQ PO SCH ×2 (09:07→21:06)
[2021-04-25] MEDS: LASIX IVP SCH ×2 (09:11→17:39)
[2021-04-25] MEDS: LOVENOX INJ 40 MG SYR SC SCH (09:12)
[2021-04-25 10:24] LABS: ABG BASE EXCESS 10.3 mmol/L (-2.0-2.0)
[2021-04-25 10:26] LABS: ABG ALLEN TEST POS
[2021-04-25] MEDS ORDERED: DIFLUCAN 100 MG IV (MIX by PHARMACY)* 100 MG/50 ML BAG IV SCH (18:00)
[2021-04-25] MEDS ORDERED: NS 1000 ML 1,000 ML ONE (18:21)
[2021-04-25] MEDS: COLACE CAP 100 MG PO SCH (21:07)
[2021-04-26] MEDS: XOPENEX 1.25 MG/3 ML NEBULE NEB SCH ×4 (01:10→17:09)
[2021-04-26] MEDS: PERCOCET TAB 5/325 MG PO PRN ×5 (02:38→21:03)
[2021-04-26] MEDS: SOLU-Medrol 40 MG VIAL IVP SCH ×3 (05:52→21:10)
[2021-04-26] MEDS: LEVAQUIN PREMIX IV 500 MG 500 MG/100 ML BAG IV SCH (09:38)
[2021-04-26] MEDS: ROBITUSSIN DM PO SCH ×4 (09:38→21:01)
[2021-04-26] MEDS: LOPRESSOR TAB 50 MG PO SCH ×2 (09:38→21:02)
[2021-04-26] MEDS: NICOTINE PATCH TD SCH (09:39)
[2021-04-26] MEDS: K-DUR TAB 20 MEQ PO SCH (09:39)
[2021-04-26] MEDS: PULMICORT NEB TX 0.5 MG NEB SCH ×2 (09:40→21:45)
[2021-04-26] MEDS: ZOFRAN INJ 4 MG VIAL IVP PRN (09:43)
[2021-04-26] MEDS: LASIX IVP SCH ×2 (09:43→16:59)
[2021-04-26 09:44] LABS: BASOPHILS % (AUTO) 0.1 % (0.2-1.0); HEMATOCRIT 42.1 % (36.0-47.0); LYMPHOCYTES # (AUTO) 0.4 X10^3/uL (1.3-2.9); LYMPHOCYTES % (AUTO) 4.5 % (21.0-51.0); MEAN CORPUSCULAR HEMOGLOBIN 35.5 pg (27.0-34.0); MEAN CORPUSCULAR HGB CONC 33.1 g/dL (33.0-35.0); MEAN CORPUSCULAR VOLUME 107.2 fL (80.0-100.0); MEAN PLATELET VOLUME 8.8 fL (7.4-11.0); MONOCYTES # (AUTO) 0.4 x10^3/uL (0.3-0.8); MONOCYTES % (AUTO) 3.7 % (0.0-13.0); NEUTROPHILS # (AUTO) 8.9 x10^3/uL (2.2-4.8); NEUTROPHILS % (AUTO) 91.7 % (42.0-75.0); PLATELET COUNT 246 X10^3/uL (150.0-450.0); RED BLOOD COUNT 3.93 X10^6/uL (3.5-5.4); RED CELL DISTRIBUTION WIDTH 14.9 % (11.6-16.5); WHITE BLOOD COUNT 9.7 X10^3/uL (3.6-10.0)
[2021-04-26] MEDS: LOVENOX INJ 40 MG SYR SC SCH (09:54)
[2021-04-26 09:55] LABS: ALANINE AMINOTRANSFERASE 27 Units/L (12-78); ALBUMIN 3.5 g/dL (3.4-5.0); ALKALINE PHOSPHATASE 73 Units/L (46-116); ASPARTATE AMINO TRANSFERASE 20 Units/L (15-37); BLOOD UREA NITROGEN 32 mg/dL (7-18); CALCIUM 8.6 mg/dL (8.5-10.1); CARBON DIOXIDE 35.6 mmol/L (21-32); CHLORIDE 100 mmol/L (98-107); COR NA(FOR HYPERGLY) 142 mmol/L (136-145); CREATININE 0.87 mg/dL (0.55-1.02); SODIUM 141 mmol/L (136-145); TOTAL PROTEIN 7.2 g/dL (6.4-8.2); eGFR NON BLACK RACES > 60 (>60)
[2021-04-26 10:02] LABS: BAND NEUTROPHILS % 2 % (0-10); PLATELET MORPHOLOGY COMMENT NORMAL (NORMAL)
[2021-04-26 10:03] LABS: STOMATOCYTES SLIGHT
--- NOTE | 2021-04-26 10:58 | CT ---
HISTORYShortness of breathSTUDYCTA chest with contrast for pulmonary embolusTechnique: Axial post-contrast images with coronal, sagittal, and 3 dimensional maximum intensity projection images obtained and evaluated. Dose reduction procedures were used with mA/kv adjusted for body size.KLDSIBUVAU07/20/17FINDINGSThere is no evidence for acute pulmonary thromboembolic disease. Examination of the mediastinum demonstrated no evidence for mediastinal masses, enlarged mediastinal or enlarged hilar adenopathy or significant aortic abnormality. The heart is enlarged. Coronary artery calcifications are present. There is enlargement of the main and right left main pulmonary arteries suggestive of pulmonary arterial hypertension. No pleural effusions are identified. Examination of the lung haji demonstrated no significant nodules, masses, alveolar infiltrates, areas of consolidation, peribronchial thickening, or bronchiectasis.IMPRESSIONNo evidence for acute pulmonary thromboembolic diseaseCardiomegaly without congestive heart failureFindings suggestive of pulmonary arterial hypertensionLungs clearElectronically signed by: SURAJ CARMONA (Apr 26, 2021 10:56:29)
[2021-04-26] MEDS: DIFLUCAN 200 MG IV PREMIX* 200 MG/100 ML BAG IV SCH (11:19)
[2021-04-26 15:04] LABS: ABG BASE EXCESS 13.2 mmol/L (-2.0-2.0)
[2021-04-26 15:06] LABS: ABG HCO3 43.3 mmol/L (22-26)
[2021-04-26 15:07] LABS: ABG ALLEN TEST POS
[2021-04-26 18:13] LABS: ABG BASE EXCESS 14.7 mmol/L (-2.0-2.0)
[2021-04-26 18:15] LABS: ABG HCO3 45.9 mmol/L (22-26)
[2021-04-26] MEDS: COLACE CAP 100 MG PO SCH (21:03)
[2021-04-27] MEDS: XOPENEX 1.25 MG/3 ML NEBULE NEB SCH ×6 (00:35→18:12)
[2021-04-27] MEDS: PERCOCET TAB 5/325 MG PO PRN ×5 (01:05→21:22)
[2021-04-27] MEDS: SOLU-Medrol 40 MG VIAL IVP SCH ×3 (05:55→21:21)
[2021-04-27] MEDS: PULMICORT NEB TX 0.5 MG NEB SCH ×2 (09:06→21:00)
[2021-04-27] MEDS: LOPRESSOR TAB 50 MG PO SCH ×2 (09:35→20:41)
[2021-04-27] MEDS: LEVAQUIN PREMIX IV 500 MG 500 MG/100 ML BAG IV SCH (09:35)
[2021-04-27] MEDS: ROBITUSSIN DM PO SCH ×4 (09:35→20:43)
[2021-04-27] MEDS: NICOTINE PATCH TD SCH (09:35)
[2021-04-27] MEDS: K-DUR TAB 20 MEQ PO SCH (09:36)
[2021-04-27] MEDS: LOVENOX INJ 40 MG SYR SC SCH (09:36)
[2021-04-27] MEDS: DIFLUCAN 200 MG IV PREMIX* 200 MG/100 ML BAG IV SCH (09:36)
[2021-04-27] MEDS: LASIX IVP SCH ×2 (09:51→20:58)
[2021-04-27 12:09] LABS: BASOPHILS % (AUTO) 0.1 % (0.2-1.0); HEMATOCRIT 41.6 % (36.0-47.0); HEMOGLOBIN 13.9 g/dL (12.0-16.0); LYMPHOCYTES # (AUTO) 0.3 X10^3/uL (1.3-2.9); LYMPHOCYTES % (AUTO) 4.8 % (21.0-51.0); MEAN CORPUSCULAR HEMOGLOBIN 35.8 pg (27.0-34.0); MEAN CORPUSCULAR HGB CONC 33.3 g/dL (33.0-35.0); MEAN CORPUSCULAR VOLUME 107.5 fL (80.0-100.0); MEAN PLATELET VOLUME 9.2 fL (7.4-11.0); MONOCYTES # (AUTO) 0.4 x10^3/uL (0.3-0.8); MONOCYTES % (AUTO) 6.1 % (0.0-13.0); NEUTROPHILS # (AUTO) 6.3 x10^3/uL (2.2-4.8); PLATELET COUNT 235 X10^3/uL (150.0-450.0); RED BLOOD COUNT 3.87 X10^6/uL (3.5-5.4); RED CELL DISTRIBUTION WIDTH 15.2 % (11.6-16.5); WHITE BLOOD COUNT 7.1 X10^3/uL (3.6-10.0)
[2021-04-27 12:27] LABS: ALANINE AMINOTRANSFERASE 23 Units/L (12-78); ALBUMIN 3.6 g/dL (3.4-5.0); ALKALINE PHOSPHATASE 72 Units/L (46-116); ASPARTATE AMINO TRANSFERASE 13 Units/L (15-37); BLOOD UREA NITROGEN 33 mg/dL (7-18); CALCIUM 8.6 mg/dL (8.5-10.1); CHLORIDE 100 mmol/L (98-107); COR NA(FOR HYPERGLY) 143 mmol/L (136-145); CREATININE 0.99 mg/dL (0.55-1.02); SODIUM 142 mmol/L (136-145); TOTAL PROTEIN 7.3 g/dL (6.4-8.2); eGFR NON BLACK RACES 60 (>60)
[2021-04-27 12:33] LABS: CARBON DIOXIDE 40.7 mmol/L (21-32)
[2021-04-27 12:45] LABS: PLATELET MORPHOLOGY COMMENT NORMAL (NORMAL)
[2021-04-27] MEDS: COLACE CAP 100 MG PO SCH (20:41)
[2021-04-27] MEDS: SEROquel TAB 25 mg PO PRN (20:41)
[2021-04-28] MEDS: XOPENEX 1.25 MG/3 ML NEBULE NEB SCH ×5 (00:25→18:13)
[2021-04-28] MEDS: SOLU-Medrol 40 MG VIAL IVP SCH ×3 (05:57→21:14)
[2021-04-28] MEDS ORDERED: NS 100 ML IV 100 ML ONE (08:48)
[2021-04-28] MEDS: LEVAQUIN PREMIX IV 500 MG 500 MG/100 ML BAG IV SCH (09:24)
[2021-04-28] MEDS: PULMICORT NEB TX 0.5 MG NEB SCH ×2 (09:24→20:25)
[2021-04-28] MEDS: LASIX IVP SCH ×2 (09:36→17:42)
[2021-04-28] MEDS: K-DUR TAB 20 MEQ PO SCH (09:36)
[2021-04-28] MEDS: LOPRESSOR TAB 50 MG PO SCH ×2 (09:36→20:30)
[2021-04-28] MEDS: LOVENOX INJ 40 MG SYR SC SCH (09:36)
[2021-04-28] MEDS: ROBITUSSIN DM PO SCH ×4 (09:37→20:29)
[2021-04-28] MEDS: NICOTINE PATCH TD SCH (09:40)
[2021-04-28] MEDS: PERCOCET TAB 5/325 MG PO PRN ×3 (09:51→22:56)
[2021-04-28] MEDS: DIFLUCAN 200 MG IV PREMIX* 200 MG/100 ML BAG IV SCH (10:00)
[2021-04-28 11:03] LABS: BASOPHILS % (AUTO) 0.1 % (0.2-1.0); HEMATOCRIT 43.5 % (36.0-47.0); HEMOGLOBIN 14.4 g/dL (12.0-16.0); LYMPHOCYTES # (AUTO) 0.3 X10^3/uL (1.3-2.9); LYMPHOCYTES % (AUTO) 6.7 % (21.0-51.0); MEAN CORPUSCULAR HEMOGLOBIN 35.4 pg (27.0-34.0); MEAN CORPUSCULAR HGB CONC 33.1 g/dL (33.0-35.0); MEAN CORPUSCULAR VOLUME 107.1 fL (80.0-100.0); MEAN PLATELET VOLUME 8.9 fL (7.4-11.0); MONOCYTES # (AUTO) 0.2 x10^3/uL (0.3-0.8); MONOCYTES % (AUTO) 4.7 % (0.0-13.0); NEUTROPHILS # (AUTO) 4.4 x10^3/uL (2.2-4.8); NEUTROPHILS % (AUTO) 88.5 % (42.0-75.0); PLATELET COUNT 224 X10^3/uL (150.0-450.0); RED BLOOD COUNT 4.07 X10^6/uL (3.5-5.4); RED CELL DISTRIBUTION WIDTH 14.7 % (11.6-16.5)
[2021-04-28 11:08] LABS: ABG BASE EXCESS 14.8 mmol/L (-2.0-2.0)
[2021-04-28 11:09] LABS: ABG ALLEN TEST POS
[2021-04-28 11:15] LABS: ALANINE AMINOTRANSFERASE 21 Units/L (12-78); ALBUMIN 3.5 g/dL (3.4-5.0); ALKALINE PHOSPHATASE 67 Units/L (46-116); ASPARTATE AMINO TRANSFERASE 12 Units/L (15-37); BLOOD UREA NITROGEN 34 mg/dL (7-18); CALCIUM 8.8 mg/dL (8.5-10.1); CHLORIDE 100 mmol/L (98-107); COR NA(FOR HYPERGLY) 146 mmol/L (136-145); CREATININE 1.06 mg/dL (0.55-1.02); SODIUM 144 mmol/L (136-145); TOTAL PROTEIN 7.3 g/dL (6.4-8.2); eGFR NON BLACK RACES 55 (>60)
[2021-04-28 11:18] LABS: CARBON DIOXIDE 42.5 mmol/L (21-32)
[2021-04-28 11:21] LABS: PLATELET MORPHOLOGY COMMENT NORMAL (NORMAL); STOMATOCYTES SLIGHT
--- NOTE | 2021-04-28 16:37 | RAD ---
HISTORYcopd, chgSTUDYCHEST, 1 VIEWCOMPARISONPrevious CTA of the chest from April 26TE[facility]QUETri[facility] portable single-viewFINDINGSThere is evidence of cardiomegaly without pulmonary edema or organized consolidation. The shadow seen along the left heart border is consistent with an enlarged pulmonary artery based on previous CTA of the chest. This likely indicates pulmonary artery hypertension. The pleural spaces remain clear. There is no evidence of pneumothorax.IMPRESSIONCardiomegaly without pulmonary edema or acute infiltratesEnlarged pulmonary artery shadow suggesting pulmonary artery hypertension.Electronically signed by: CLAUDIA ESTRADA (Apr 28, 2021 16:37:48)
[2021-04-28] MEDS: COLACE CAP 100 MG PO SCH (20:29)
[2021-04-28] MEDS: SEROquel TAB 25 mg PO PRN (21:21)
[2021-04-29] MEDS: XOPENEX 1.25 MG/3 ML NEBULE NEB SCH ×4 (05:05→16:29)
[2021-04-29] MEDS: SOLU-Medrol 40 MG VIAL IVP SCH ×3 (05:08→20:25)
[2021-04-29] MEDS: PERCOCET TAB 5/325 MG PO PRN ×3 (05:16→19:32)
[2021-04-29] MEDS ORDERED: NS 250 ML IV 250 ML IV PRN (05:59)
[2021-04-29] MEDS ORDERED: NS 250 ML IV 250 ML IV ONE (06:02)
[2021-04-29 06:35] LABS: BASOPHILS % (AUTO) 0.2 % (0.2-1.0); HEMATOCRIT 42.7 % (36.0-47.0); HEMOGLOBIN 14.2 g/dL (12.0-16.0); LYMPHOCYTES # (AUTO) 0.5 X10^3/uL (1.3-2.9); LYMPHOCYTES % (AUTO) 9.6 % (21.0-51.0); MEAN CORPUSCULAR HEMOGLOBIN 35.4 pg (27.0-34.0); MEAN CORPUSCULAR HGB CONC 33.3 g/dL (33.0-35.0); MEAN CORPUSCULAR VOLUME 106.4 fL (80.0-100.0); MEAN PLATELET VOLUME 9.7 fL (7.4-11.0); MONOCYTES # (AUTO) 0.4 x10^3/uL (0.3-0.8); MONOCYTES % (AUTO) 6.9 % (0.0-13.0); NEUTROPHILS # (AUTO) 4.7 x10^3/uL (2.2-4.8); NEUTROPHILS % (AUTO) 83.3 % (42.0-75.0); PLATELET COUNT 206 X10^3/uL (150.0-450.0); RED BLOOD COUNT 4.02 X10^6/uL (3.5-5.4); RED CELL DISTRIBUTION WIDTH 14.4 % (11.6-16.5); WHITE BLOOD COUNT 5.7 X10^3/uL (3.6-10.0)
[2021-04-29 06:50] LABS: ALANINE AMINOTRANSFERASE 21 Units/L (12-78); ALBUMIN 3.4 g/dL (3.4-5.0); ALKALINE PHOSPHATASE 60 Units/L (46-116); ASPARTATE AMINO TRANSFERASE 16 Units/L (15-37); BLOOD UREA NITROGEN 39 mg/dL (7-18); CALCIUM 8.6 mg/dL (8.5-10.1); CHLORIDE 100 mmol/L (98-107); COR NA(FOR HYPERGLY) 144 mmol/L (136-145); CREATININE 0.96 mg/dL (0.55-1.02); SODIUM 142 mmol/L (136-145); TOTAL PROTEIN 6.8 g/dL (6.4-8.2); eGFR NON BLACK RACES > 60 (>60)
[2021-04-29 07:16] LABS: PLATELET MORPHOLOGY COMMENT NORMAL (NORMAL); STOMATOCYTES FEW
[2021-04-29] MEDS: LEVAQUIN PREMIX IV 500 MG 500 MG/100 ML BAG IV SCH (08:21)
[2021-04-29] MEDS: LOPRESSOR TAB 50 MG PO SCH ×2 (08:22→20:25)
[2021-04-29] MEDS: ROBITUSSIN DM PO SCH ×4 (08:22→20:25)
[2021-04-29] MEDS: K-DUR TAB 20 MEQ PO SCH (08:22)
[2021-04-29] MEDS: LOVENOX INJ 40 MG SYR SC SCH (08:23)
[2021-04-29] MEDS: NICOTINE PATCH TD SCH (08:24)
[2021-04-29] MEDS: LASIX IVP SCH ×2 (08:29→16:42)
[2021-04-29] MEDS: PULMICORT NEB TX 0.5 MG NEB SCH ×2 (08:48→21:53)
[2021-04-29 09:44] LABS: ABG BASE EXCESS 19.5 mmol/L (-2.0-2.0)
[2021-04-29 09:45] LABS: ABG HCO3 48.2 mmol/L (22-26)
[2021-04-29 09:46] LABS: ABG ALLEN TEST POS
[2021-04-29] MEDS: DIFLUCAN 200 MG IV PREMIX* 200 MG/100 ML BAG IV SCH (09:51)
[2021-04-29] MEDS: COLACE CAP 100 MG PO SCH (20:25)
[2021-04-29] MEDS: SEROquel TAB 25 mg PO PRN (23:54)
[2021-04-30] MEDS: XOPENEX 1.25 MG/3 ML NEBULE NEB SCH ×4 (00:05→17:30)
[2021-04-30] MEDS: PERCOCET TAB 5/325 MG PO PRN ×4 (04:53→23:13)
[2021-04-30] MEDS: SOLU-Medrol 40 MG VIAL IVP SCH ×2 (09:22→20:24)
[2021-04-30] MEDS: NICOTINE PATCH TD SCH (09:22)
[2021-04-30] MEDS: ROBITUSSIN DM PO SCH ×4 (09:22→20:24)
[2021-04-30] MEDS: LOPRESSOR TAB 50 MG PO SCH ×2 (09:22→20:24)
[2021-04-30] MEDS: K-DUR TAB 20 MEQ PO SCH (09:23)
[2021-04-30] MEDS: DIFLUCAN 200 MG IV PREMIX* 200 MG/100 ML BAG IV SCH (09:24)
[2021-04-30] MEDS: LOVENOX INJ 40 MG SYR SC SCH (09:25)
[2021-04-30] MEDS: LASIX IVP SCH ×2 (09:29→17:07)
[2021-04-30] MEDS: PULMICORT NEB TX 0.5 MG NEB SCH ×2 (09:38→20:36)
[2021-04-30] MEDS: LEVAQUIN PREMIX IV 500 MG 500 MG/100 ML BAG IV SCH (10:38)
[2021-04-30 11:25] LABS: ABG BASE EXCESS 25.5 mmol/L (-2.0-2.0)
[2021-04-30 11:28] LABS: ABG ALLEN TEST POS; ABG HCO3 53.6 mmol/L (22-26)
[2021-04-30] MEDS: COLACE CAP 100 MG PO SCH (20:24)
[2021-04-30] MEDS: SEROquel TAB 25 mg PO PRN (23:13)
[2021-05-01] MEDS: XOPENEX 1.25 MG/3 ML NEBULE NEB SCH ×4 (00:45→17:10)
[2021-05-01] MEDS: PERCOCET TAB 5/325 MG PO PRN ×3 (05:28→17:37)
--- NOTE | 2021-05-01 05:58 | RAD ---
PROCEDURE: Chest X-ray 1 View .HISTORY: Congestive heart failure and COPD.TECHNIQUE: AP view .COMPARISON: 04/28/2021.TECHNICAL QUALITY: Satisfactory .FINDINGS:Unchanged cardiomegaly.Central vascularity is within normal limits.Clear lungs with no consolidation or pleural fluid. Hyperlucency upper lung haji consistent with emphysema.IMPRESSION:1. Unchanged cardiomegaly.2. COPD.3. No other evidence of active disease.Electronically signed by: Celso Robles (May 01, 2021 05:56:56)
[2021-05-01 06:49] LABS: BASOPHILS % (AUTO) 0 % (0.2-1.0); HEMATOCRIT 44.3 % (36.0-47.0); HEMOGLOBIN 14.7 g/dL (12.0-16.0); LYMPHOCYTES # (AUTO) 0.6 X10^3/uL (1.3-2.9); LYMPHOCYTES % (AUTO) 5.6 % (21.0-51.0); MEAN CORPUSCULAR HEMOGLOBIN 35.2 pg (27.0-34.0); MEAN CORPUSCULAR HGB CONC 33.2 g/dL (33.0-35.0); MEAN PLATELET VOLUME 9.3 fL (7.4-11.0); MONOCYTES % (AUTO) 8.6 % (0.0-13.0); NEUTROPHILS # (AUTO) 9.7 x10^3/uL (2.2-4.8); NEUTROPHILS % (AUTO) 85.8 % (42.0-75.0); PLATELET COUNT 207 X10^3/uL (150.0-450.0); RED BLOOD COUNT 4.18 X10^6/uL (3.5-5.4); RED CELL DISTRIBUTION WIDTH 14.6 % (11.6-16.5); WHITE BLOOD COUNT 11.3 X10^3/uL (3.6-10.0)
[2021-05-01 07:17] LABS: PLATELET MORPHOLOGY COMMENT NORMAL (NORMAL); STOMATOCYTES RARE
[2021-05-01 07:20] LABS: ALANINE AMINOTRANSFERASE 26 Units/L (12-78); ALBUMIN 3.3 g/dL (3.4-5.0); ALKALINE PHOSPHATASE 56 Units/L (46-116); ASPARTATE AMINO TRANSFERASE 15 Units/L (15-37); BLOOD UREA NITROGEN 37 mg/dL (7-18); CALCIUM 8.6 mg/dL (8.5-10.1); CHLORIDE 98 mmol/L (98-107); COR CA(FOR HYPOALB) 9.2 mg/dL (8.5-10.1); COR NA(FOR HYPERGLY) 144 mmol/L (136-145); CREATININE 0.94 mg/dL (0.55-1.02); SODIUM 143 mmol/L (136-145); TOTAL PROTEIN 6.8 g/dL (6.4-8.2); eGFR NON BLACK RACES > 60 (>60)
[2021-05-01 07:25] LABS: CARBON DIOXIDE 43.9 mmol/L (21-32)
[2021-05-01] MEDS: SOLU-Medrol 40 MG VIAL IVP SCH (08:42)
[2021-05-01] MEDS: LASIX IVP SCH ×2 (08:42→16:18)
[2021-05-01] MEDS: NICOTINE PATCH TD SCH (08:42)
[2021-05-01] MEDS: ROBITUSSIN DM PO SCH ×3 (08:42→16:19)
[2021-05-01] MEDS: LEVAQUIN PREMIX IV 500 MG 500 MG/100 ML BAG IV SCH (08:42)
[2021-05-01] MEDS: LOPRESSOR TAB 50 MG PO SCH (08:42)
[2021-05-01] MEDS: LOVENOX INJ 40 MG SYR SC SCH (08:43)
[2021-05-01] MEDS: K-DUR TAB 20 MEQ PO SCH (08:43)
[2021-05-01] MEDS: PULMICORT NEB TX 0.5 MG NEB SCH (09:39)
[2021-05-01] MEDS: DIFLUCAN 200 MG IV PREMIX* 200 MG/100 ML BAG IV SCH (10:28)
[2021-05-01 12:06] LABS: ABG HCO3 53.9 mmol/L (22-26)
[2021-05-01 16:02] VITALS: BP 137/72
[2021-05-02] MEDS ORDERED: LEVAQUIN TAB 500 MG PO SCH (09:00)
== END 2021-05-01 18:20 | disposition home or self-care (01) ==
LOC: MED/SURG
PROVIDERS: ADMIT Internal Medicine; ATTEND Internal Medicine
DX: E66.09 Other obesity due to excess calories; Z72.0 Tobacco use; R94.31 Abnormal electrocardiogram [ECG] [EKG]; I50.9 Heart failure, unspecified; K21.9 Gastro-esophageal reflux disease without esophagitis; R53.1 Weakness; M51.36 Other intervertebral disc degeneration, lumbar region; R26.89 Other abnormalities of gait and mobility; J44.1 Chronic obstructive pulmonary disease with (acute) exacerbation; I11.0 Hypertensive heart disease with heart failure; M19.90 Unspecified osteoarthritis, unspecified site; J96.22 Acute and chronic respiratory failure with hypercapnia

== ENCOUNTER 2021-08-27 17:22 | Observation (INO) ==
[2021-08-27] MEDS ORDERED: ZOFRAN INJ 4 MG VIAL IVP PRN (17:53)
--- NOTE | 2021-08-27 18:06 | DR.H&P ---
H&P - History & Physical for Day of: H&P Date: 08/27/21 - Chief Complaint Chief Complaint: CCC, SOB, COLITIS WITH N/V/D - History of Present Illness History of Present Illness: PT IS 65 WF DIRECT ADMIT FROM DR MALDONADO OFFICE WITH CO INCREASED CHEST CONGESTION AND SOB. PT ALSO CO N/V/D FOR WEEKS. PT WAS SEEN 2 TIMES IN ER THIS MONTH. PT GIVEN CIPRO ON 08/08 FOR 10 DAYS, ALSO XIFAXIN FOR COLITIS. PT WAS SEEN IN ER ON 08/25, WITH CT PERFORMED. PT GIVEN KEFLEX, BENTYL AND ZOFRAN AT THAT TIME WITHOUT IMPROVEMENT. PT REPORTS MUCOUS IN STOOL AND BP RUNNING VERY LOW AT HOME "70/40" PT REPORTS SYNCOPE AT HOME AND MULTIPLE FALLS DUE TO WEAKNESS. RECOMMEND NH FOLLOWING RESOLUTION OF ACUTE ILLNESS. PT HAS PMH OF CHF, COPD WITH RESP FAILURE, GERD, OA. - Past Medical History Past Medical History: Anxiety, Arthritis, CHF, COPD, GERD, [place] - Past Surgical History Surgical History: Angioplasty/Stents, Appendectomy, Cholecystectomy, Hysterectomy, Ortho Surgery - Family History Family Medical History: Coronary Artery Disease, Heart Failure - Social History Does patient currently use any type of tobacco product: No Have you used tobacco products in the last 12 months: No Type of Tobacco Use: Cigarettes Does any household member use tobacco: Yes Alcohol Use: None Drug Use: None Risks, benefits, and alternatives of opioids discussed: No Prescription drug monitoring program results: PDMP reviewed and no concerns identified - Medications Home Medications: gabapentin [From Neurontin] Allergy (Verified 10/13/19 03:31) pregabalin [From Lyrica] Allergy (Verified 10/13/19 03:31) - Review of Systems Constitutional: Chills, Weakness, Malaise Eyes: No Symptoms Reported ENT: No Symptoms Reported Respiratory: Shortness of Breath, SOB with Excertion Cardiovascular: Palpitations, Edema, Light Headedness Gastrointestinal: Nausea, Vomiting, Abdominal Pain, Diarrhea Genitourinary: Frequency Musculoskeletal: Back Pain, Leg Pain Skin: No Symptoms Reported Neurological: Weakness - Physical Exam Vital Signs: Blood Pressure [Left Arm] 137/72 Oriented: Normal Eyes: Normal Ear: Normal Nose: Normal Throat: Normal Respiratory: Rhonchi Throughout, Wheezes Throughout, RLL Diminished, LLL Diminished Cardiovascular: Normal, Edema : Normal Auscultation: Bowel Sounds: Normal Palpation: Normal Tenderness: Diffuse Skin: Decreased Turgur Musculoskeletal: Back:Lumbar, Tender, Motor Deficit Psychiatric: Anxiety Affect: Anxious Speech Pattern: Clear, Appropriate - Assessment/Plan (1) COPD exacerbation Status: Acute Plan: ADMIT, CXR ABG ON ADMISSION. IV HYDRATION, STRICT I&OS. RESP THERAPY, SUPPLEMENTAL O2. STOOL STUDIES, IV ABTX. PPI THERAPY, VERIFY HOME MEDICATION. BP CONTROL, COVID SWAB ON ADMISSION, IV SOLU MEDROL. LAUREEN MICHAEL, PT CONSULT (2) Acute colitis Status: Acute (3) CHF (congestive heart failure) Qualifiers: Heart failure type: other Qualified Code(s): I50.9 - Heart failure, unspecified Status: Acute (4) Falls frequently Status: Acute (5) Adult failure to thrive Status: Acute - Allergies Allergies/Adverse Reactions: Allergies Allergy/AdvReac Type Severity Reaction Status Date / Time gabapentin [From Neurontin] Allergy Verified 10/13/19 03:31 pregabalin [From Lyrica] Allergy Verified 10/13/19 03:31
[2021-08-27 18:37] LABS: BASOPHILS # (AUTO) 0.1 X10^3/uL (0.0-0.1); BASOPHILS % (AUTO) 0.7 % (0.2-1.0); EOSINOPHILS # (AUTO) 0.1 x10^3/uL (0.0-0.2); EOSINOPHILS % (AUTO) 0.5 % (0.9-2.9); HEMATOCRIT 40.4 % (36.0-47.0); HEMOGLOBIN 13.3 g/dL (12.0-16.0); LYMPHOCYTES # (AUTO) 3.8 X10^3/uL (1.3-2.9); LYMPHOCYTES % (AUTO) 29.2 % (21.0-51.0); MEAN CORPUSCULAR HEMOGLOBIN 35.9 pg (27.0-34.0); MEAN CORPUSCULAR HGB CONC 32.9 g/dL (33.0-35.0); MEAN CORPUSCULAR VOLUME 109.3 fL (80.0-100.0); MEAN PLATELET VOLUME 8.7 fL (7.4-11.0); MONOCYTES # (AUTO) 1.4 x10^3/uL (0.3-0.8); NEUTROPHILS # (AUTO) 7.6 x10^3/uL (2.2-4.8); NEUTROPHILS % (AUTO) 58.6 % (42.0-75.0); PLATELET COUNT 424 X10^3/uL (150.0-450.0); RED CELL DISTRIBUTION WIDTH 13.7 % (11.6-16.5)
[2021-08-27 18:46] LABS: AMYLASE 33 Units/L (25-115); LIPASE 38 Units/L (73-393)
[2021-08-27 18:51] LABS: ALBUMIN 3.2 g/dL (3.4-5.0); CARBON DIOXIDE 24.7 mmol/L (21-32); COR CA(FOR HYPOALB) 9.6 mg/dL (8.5-10.1); CREATININE 1.8 mg/dL (0.55-1.02); MAGNESIUM 2.3 mg/dL (1.7-2.9); TOTAL PROTEIN 7.5 g/dL (6.4-8.2)
[2021-08-27 19:06] LABS: PLATELET MORPHOLOGY COMMENT NORMAL (NORMAL)
[2021-08-27] MEDS ORDERED: DUONEB 0.5 MG/3 MG (3 mL) NEB ONE (19:37)
[2021-08-27] MEDS ORDERED: PULMICORT NEB TX 0.5 MG NEB ONE (19:37)
[2021-08-27] MEDS ORDERED: SALINE 3% 15 ML NEB TX ONE (19:38)
[2021-08-27] MEDS: NS 1000 ML 1,000 ML IV SCH (19:40)
[2021-08-27 19:54] LABS: ABG ALLEN TEST POS; ABG BASE EXCESS 2.6 mmol/L (-2.0-2.0); ABG HCO3 26.2 mmol/L (22-26)
--- NOTE | 2021-08-27 19:54 | RAD ---
HISTORY:Shortness of breath, COPD exacerbation, nausea, vomiting, diarrheaStudy: Acute abdominal seriesComparison:Chest radiograph 05/01/2021Findings:Stable cardiomegaly and severe enlargement of the pulmonary arteries. No infiltrate, effusion or pneumothorax.Bowel gas pattern is nonspecific, nonobstructive. There is retained contrast seen in the distal colon and rectum. No gross free intraperitoneal air. There is a right hip arthroplasty.IMPRESSION:1.Stable cardiomegaly and severe enlargement of pulmonary arteries. No acute infiltrate.2.No evidence of acute abdominal pathology.Electronically signed by: SOLO SAMAYOA (Aug 27, 2021 19:52:15)
[2021-08-27 20:18] VITALS: BMI 45.1
[2021-08-27] MEDS: SOLU-Medrol 125 MG VIAL IVP SCH ×2 (21:00→22:52)
[2021-08-27] MEDS: PROTONIX INJ 40 MG VIAL IVP SCH (21:00)
[2021-08-27] MEDS: PULMICORT NEB TX 0.5 MG NEB SCH (21:00)
[2021-08-27] MEDS: DUONEB 0.5 MG/3 MG (3 mL) NEB SCH (21:00)
[2021-08-27] MEDS: CIPRO IV 400 MG PREMIX* 400 MG/200 ML IV.SOLN. IV SCH (21:00)
[2021-08-27] MEDS: MORPHINE SULFATE INJ 2 MG INJ IVP PRN (21:19)
[2021-08-27] MEDS ORDERED: SALINE 3% 15 ML NEB TX NEB ONE (21:28)
[2021-08-27 22:46] LABS: BILIRUBIN,URINE NEGATIVE (NEGATIVE); BLOOD/HEMOGLOBIN,URINE 1+ (NEGATIVE); GLUCOSE, URINE NEGATIVE (NEGATIVE); KETONES,URINE 1+ (NEGATIVE); LEUKOCYTE ESTERASE ,URINE 1+ (NEGATIVE); NITRITES,URINE NEGATIVE (NEGATIVE); PROTEIN,URINE 2+ (NEGATIVE); UROBILINOGEN,URINE NORMAL (NORMAL)
[2021-08-27 23:08] LABS: APPEARANCE,URINE HAZY (CLEAR); COLOR,URINE YELLOW (YELLOW); SQUAMOUS EPITHELIAL CELL,UR MODERATE /HPF (NEGATIVE)
[2021-08-27 23:09] LABS: BACTERIA,URINE TRACE /HPF (NEGATIVE); MUCUS,URINE MODERATE /HPF (NEGATIVE)
[2021-08-28] MEDS: DUONEB 0.5 MG/3 MG (3 mL) NEB SCH ×6 (00:10→21:19)
[2021-08-28] MEDS: MORPHINE SULFATE INJ 2 MG INJ IVP PRN ×4 (03:20→21:45)
[2021-08-28] MEDS: SOLU-Medrol 125 MG VIAL IVP SCH ×3 (06:00→21:00)
[2021-08-28 06:11] LABS: BASOPHILS % (AUTO) 0.2 % (0.2-1.0); HEMATOCRIT 37.2 % (36.0-47.0); HEMOGLOBIN 12.4 g/dL (12.0-16.0); LYMPHOCYTES # (AUTO) 0.9 X10^3/uL (1.3-2.9); LYMPHOCYTES % (AUTO) 11.2 % (21.0-51.0); MEAN CORPUSCULAR HEMOGLOBIN 36.3 pg (27.0-34.0); MEAN CORPUSCULAR HGB CONC 33.4 g/dL (33.0-35.0); MEAN CORPUSCULAR VOLUME 108.7 fL (80.0-100.0); MEAN PLATELET VOLUME 8.2 fL (7.4-11.0); MONOCYTES # (AUTO) 0.1 x10^3/uL (0.3-0.8); MONOCYTES % (AUTO) 0.9 % (0.0-13.0); NEUTROPHILS # (AUTO) 6.7 x10^3/uL (2.2-4.8); NEUTROPHILS % (AUTO) 87.7 % (42.0-75.0); PLATELET COUNT 331 X10^3/uL (150.0-450.0); RED BLOOD COUNT 3.43 X10^6/uL (3.5-5.4); RED CELL DISTRIBUTION WIDTH 14.1 % (11.6-16.5); WHITE BLOOD COUNT 7.7 X10^3/uL (3.6-10.0)
[2021-08-28 06:31] LABS: ALANINE AMINOTRANSFERASE 10 Units/L (12-78); ALBUMIN 2.7 g/dL (3.4-5.0); ALKALINE PHOSPHATASE 109 Units/L (46-116); ASPARTATE AMINO TRANSFERASE 17 Units/L (15-37); BLOOD UREA NITROGEN 13 mg/dL (7-18); CALCIUM 8.5 mg/dL (8.5-10.1); CARBON DIOXIDE 27.7 mmol/L (21-32); CHLORIDE 103 mmol/L (98-107); COR CA(FOR HYPOALB) 9.5 mg/dL (8.5-10.1); COR NA(FOR HYPERGLY) 140 mmol/L (136-145); CREATININE 1.08 mg/dL (0.55-1.02); SODIUM 139 mmol/L (136-145); TOTAL PROTEIN 6.6 g/dL (6.4-8.2); eGFR NON BLACK RACES 54 (>60)
[2021-08-28 06:50] LABS: PLATELET MORPHOLOGY COMMENT NORMAL (NORMAL)
[2021-08-28] MEDS: PULMICORT NEB TX 0.5 MG NEB SCH ×2 (08:50→21:19)
[2021-08-28] MEDS: PROTONIX INJ 40 MG VIAL IVP SCH ×2 (09:25→20:46)
[2021-08-28] MEDS: CIPRO IV 400 MG PREMIX* 400 MG/200 ML IV.SOLN. IV SCH ×2 (09:25→20:46)
[2021-08-28] MEDS: NS 1000 ML 1,000 ML IV SCH (09:32)
[2021-08-28] MEDS: VSL#3 PO SCH (09:32)
[2021-08-28] MEDS ORDERED: SALINE 0.9% 3 ML NEB TX ONE (20:01)
[2021-08-29] MEDS: NS 1000 ML 1,000 ML IV SCH ×3 (03:00→17:56)
[2021-08-29] MEDS: MORPHINE SULFATE INJ 2 MG INJ IVP PRN ×4 (03:55→22:14)
[2021-08-29] MEDS: DUONEB 0.5 MG/3 MG (3 mL) NEB SCH ×6 (06:04→20:26)
[2021-08-29] MEDS: SOLU-Medrol 125 MG VIAL IVP SCH ×3 (06:09→22:13)
[2021-08-29] MEDS: CIPRO IV 400 MG PREMIX* 400 MG/200 ML IV.SOLN. IV SCH ×2 (09:01→22:13)
[2021-08-29] MEDS: PROTONIX INJ 40 MG VIAL IVP SCH ×2 (09:01→22:14)
[2021-08-29] MEDS: VSL#3 PO SCH (09:01)
[2021-08-29] MEDS: PULMICORT NEB TX 0.5 MG NEB SCH ×2 (09:24→20:26)
[2021-08-29 09:25] LABS: BASOPHILS % (AUTO) 0 % (0.2-1.0); HEMATOCRIT 35.3 % (36.0-47.0); HEMOGLOBIN 11.8 g/dL (12.0-16.0); LYMPHOCYTES # (AUTO) 0.4 X10^3/uL (1.3-2.9); LYMPHOCYTES % (AUTO) 5.8 % (21.0-51.0); MEAN CORPUSCULAR HEMOGLOBIN 36.6 pg (27.0-34.0); MEAN CORPUSCULAR HGB CONC 33.5 g/dL (33.0-35.0); MEAN CORPUSCULAR VOLUME 109.4 fL (80.0-100.0); MEAN PLATELET VOLUME 8.2 fL (7.4-11.0); MONOCYTES # (AUTO) 0.3 x10^3/uL (0.3-0.8); MONOCYTES % (AUTO) 4.5 % (0.0-13.0); NEUTROPHILS % (AUTO) 89.7 % (42.0-75.0); PLATELET COUNT 305 X10^3/uL (150.0-450.0); RED BLOOD COUNT 3.23 X10^6/uL (3.5-5.4); RED CELL DISTRIBUTION WIDTH 14.5 % (11.6-16.5); WHITE BLOOD COUNT 7.8 X10^3/uL (3.6-10.0)
[2021-08-29 09:39] LABS: ALANINE AMINOTRANSFERASE 12 Units/L (12-78); ALBUMIN 2.8 g/dL (3.4-5.0); ALKALINE PHOSPHATASE 97 Units/L (46-116); ASPARTATE AMINO TRANSFERASE 13 Units/L (15-37); BLOOD UREA NITROGEN 9 mg/dL (7-18); CALCIUM 8.6 mg/dL (8.5-10.1); CARBON DIOXIDE 29.5 mmol/L (21-32); CHLORIDE 104 mmol/L (98-107); COR CA(FOR HYPOALB) 9.6 mg/dL (8.5-10.1); COR NA(FOR HYPERGLY) 144 mmol/L (136-145); CREATININE 0.92 mg/dL (0.55-1.02); MAGNESIUM 1.9 mg/dL (1.7-2.9); SODIUM 142 mmol/L (136-145); TOTAL PROTEIN 6.5 g/dL (6.4-8.2); eGFR NON BLACK RACES > 60 (>60)
[2021-08-29 09:52] LABS: PLATELET MORPHOLOGY COMMENT NORMAL (NORMAL)
[2021-08-29] MEDS: COLACE CAP 100 MG PO SCH (22:13)
[2021-08-30] MEDS: DUONEB 0.5 MG/3 MG (3 mL) NEB SCH ×6 (01:10→20:35)
[2021-08-30] MEDS: MORPHINE SULFATE INJ 2 MG INJ IVP PRN ×4 (04:30→23:10)
[2021-08-30] MEDS: NS 1000 ML 1,000 ML IV SCH ×2 (04:33→16:25)
[2021-08-30] MEDS: SOLU-Medrol 125 MG VIAL IVP SCH ×3 (05:20→21:30)
[2021-08-30 06:17] LABS: BASOPHILS % (AUTO) 0.1 % (0.2-1.0); HEMATOCRIT 32.8 % (36.0-47.0); HEMOGLOBIN 10.8 g/dL (12.0-16.0); LYMPHOCYTES # (AUTO) 0.5 X10^3/uL (1.3-2.9); LYMPHOCYTES % (AUTO) 3.6 % (21.0-51.0); MEAN CORPUSCULAR HEMOGLOBIN 36.1 pg (27.0-34.0); MEAN CORPUSCULAR HGB CONC 32.9 g/dL (33.0-35.0); MEAN CORPUSCULAR VOLUME 109.8 fL (80.0-100.0); MEAN PLATELET VOLUME 8.7 fL (7.4-11.0); MONOCYTES # (AUTO) 0.9 x10^3/uL (0.3-0.8); NEUTROPHILS # (AUTO) 11.7 x10^3/uL (2.2-4.8); NEUTROPHILS % (AUTO) 89.3 % (42.0-75.0); PLATELET COUNT 251 X10^3/uL (150.0-450.0); RED BLOOD COUNT 2.99 X10^6/uL (3.5-5.4); RED CELL DISTRIBUTION WIDTH 14.4 % (11.6-16.5); WHITE BLOOD COUNT 13.2 X10^3/uL (3.6-10.0)
[2021-08-30 06:23] LABS: ALANINE AMINOTRANSFERASE 10 Units/L (12-78); ALBUMIN 2.6 g/dL (3.4-5.0); ALKALINE PHOSPHATASE 82 Units/L (46-116); ASPARTATE AMINO TRANSFERASE 25 Units/L (15-37); BLOOD UREA NITROGEN 13 mg/dL (7-18); CALCIUM 8.5 mg/dL (8.5-10.1); CHLORIDE 106 mmol/L (98-107); COR CA(FOR HYPOALB) 9.6 mg/dL (8.5-10.1); COR NA(FOR HYPERGLY) 141 mmol/L (136-145); CREATININE 0.69 mg/dL (0.55-1.02); SODIUM 140 mmol/L (136-145); TOTAL PROTEIN 6.1 g/dL (6.4-8.2); eGFR NON BLACK RACES > 60 (>60)
[2021-08-30 06:49] LABS: PLATELET MORPHOLOGY COMMENT NORMAL (NORMAL)
[2021-08-30] MEDS: PROTONIX INJ 40 MG VIAL IVP SCH ×2 (09:50→21:30)
[2021-08-30] MEDS: CIPRO IV 400 MG PREMIX* 400 MG/200 ML IV.SOLN. IV SCH ×2 (09:50→21:30)
[2021-08-30] MEDS: VSL#3 PO SCH (09:51)
[2021-08-30] MEDS: PULMICORT NEB TX 0.5 MG NEB SCH ×2 (10:09→20:35)
[2021-08-30] MEDS: LOVENOX INJ 40 MG SYR SC SCH (11:07)
[2021-08-30] MEDS: ROBITUSSIN (PLAIN) PO SCH ×3 (11:08→21:30)
[2021-08-30] MEDS: LOPRESSOR TAB 50 MG PO SCH ×2 (15:02→21:30)
[2021-08-30] MEDS: COLACE CAP 100 MG PO SCH (21:30)
[2021-08-31] MEDS: DUONEB 0.5 MG/3 MG (3 mL) NEB SCH ×6 (01:09→20:46)
[2021-08-31] MEDS: ROBITUSSIN (PLAIN) PO SCH ×6 (01:59→21:48)
[2021-08-31] MEDS: NS 1000 ML 1,000 ML IV SCH ×2 (02:05→07:40)
[2021-08-31] MEDS: SOLU-Medrol 125 MG VIAL IVP SCH ×3 (05:05→21:50)
[2021-08-31] MEDS: MORPHINE SULFATE INJ 2 MG INJ IVP PRN ×3 (05:15→18:19)
[2021-08-31 06:35] LABS: BASOPHILS % (AUTO) 0 % (0.2-1.0); HEMATOCRIT 33.1 % (36.0-47.0); HEMOGLOBIN 11.1 g/dL (12.0-16.0); LYMPHOCYTES # (AUTO) 0.5 X10^3/uL (1.3-2.9); LYMPHOCYTES % (AUTO) 4.6 % (21.0-51.0); MEAN CORPUSCULAR HEMOGLOBIN 36.4 pg (27.0-34.0); MEAN CORPUSCULAR HGB CONC 33.4 g/dL (33.0-35.0); MEAN CORPUSCULAR VOLUME 108.9 fL (80.0-100.0); MEAN PLATELET VOLUME 8.6 fL (7.4-11.0); MONOCYTES # (AUTO) 0.5 x10^3/uL (0.3-0.8); MONOCYTES % (AUTO) 5.2 % (0.0-13.0); NEUTROPHILS # (AUTO) 9.3 x10^3/uL (2.2-4.8); NEUTROPHILS % (AUTO) 90.2 % (42.0-75.0); PLATELET COUNT 249 X10^3/uL (150.0-450.0); RED BLOOD COUNT 3.04 X10^6/uL (3.5-5.4); RED CELL DISTRIBUTION WIDTH 14.3 % (11.6-16.5); WHITE BLOOD COUNT 10.4 X10^3/uL (3.6-10.0)
[2021-08-31 07:03] LABS: ALANINE AMINOTRANSFERASE 21 Units/L (12-78); ALBUMIN 2.6 g/dL (3.4-5.0); ALKALINE PHOSPHATASE 72 Units/L (46-116); ASPARTATE AMINO TRANSFERASE 28 Units/L (15-37); BLOOD UREA NITROGEN 15 mg/dL (7-18); CALCIUM 8.2 mg/dL (8.5-10.1); CARBON DIOXIDE 27.7 mmol/L (21-32); CHLORIDE 105 mmol/L (98-107); COR CA(FOR HYPOALB) 9.3 mg/dL (8.5-10.1); COR NA(FOR HYPERGLY) 139 mmol/L (136-145); CREATININE 0.69 mg/dL (0.55-1.02); SODIUM 138 mmol/L (136-145); TOTAL PROTEIN 5.9 g/dL (6.4-8.2); eGFR NON BLACK RACES > 60 (>60)
[2021-08-31 07:24] LABS: PLATELET MORPHOLOGY COMMENT NORMAL (NORMAL)
[2021-08-31 07:25] LABS: STOMATOCYTES PRESENT
[2021-08-31] MEDS: CIPRO IV 400 MG PREMIX* 400 MG/200 ML IV.SOLN. IV SCH ×2 (08:55→21:49)
[2021-08-31] MEDS: PROTONIX INJ 40 MG VIAL IVP SCH ×2 (08:56→21:49)
[2021-08-31] MEDS: VSL#3 PO SCH (08:56)
[2021-08-31] MEDS: LOPRESSOR TAB 50 MG PO SCH ×2 (08:56→21:49)
[2021-08-31] MEDS: LOVENOX INJ 40 MG SYR SC SCH (08:56)
[2021-08-31] MEDS: PULMICORT NEB TX 0.5 MG NEB SCH ×2 (09:30→20:46)
[2021-08-31] MEDS ORDERED: COZAAR PO SCH (11:00)
--- NOTE | 2021-08-31 17:38 | PCM.PROG ---
Progress Note Progress Note for Day of Date of Exam: 08/31/21 Subjective Subjective: Breathing better. No new complaints. Past Medical Family Social History Past Med/Fam/Surg Hx: No changes since H&P Allergies: Allergies gabapentin [From Neurontin] Allergy (Verified 10/13/19 03:31) pregabalin [From Lyrica] Allergy (Verified 10/13/19 03:31) Review of Systems ROS: No change since H&P Vital Signs and I&O's Vital Signs: Temperature 97.8 F Pulse Rate [Radial] 76 Pulse Rate [Bilateral Radial] 91 Pulse Rate 77 Respiratory Rate 24 Blood Pressure [Left Arm] 185/98 Blood Pressure 106/56 O2 Sat by Pulse Oximetry 96 Intake and Output: Intake & Output 08/29/21 08/30/21 08/31/21 09/01/21 11:59 11:59 11:59 11:59 Intake Total 3744 / 3744 2943 / 2943 2356 / 2356 3168 / 3168 Output Total 800 / 800 500 / 500 1200 / 1200 Balance 2944 / 2944 2443 / 2443 2356 / 2356 1967 / 1967 Physical Exam Oriented: Normal Respiratory: Generalized and Diminished Cardiovascular: Normal and Edema : Normal Auscultation: Bowel Sounds: Normal Tenderness: Diffuse Skin: Normal Musculoskeletal: Back:Lumbar, Tender and Motor Deficit Psychiatric: Anxiety Affect: Anxious Speech Pattern: Clear and Appropriate Laboratory and Diagnostics Result Diagrams: 08/31/21 06:00 08/31/21 06:00 Labs: 08/28/21 15:33 Sputum - Expectorated Sputum Sputum Culture - Final 08/28/21 15:33 Sputum - Expectorated Sputum - Final 08/27/21 18:18 Blood Blood Culture - Preliminary 08/27/21 18:13 Blood Blood Culture - Preliminary Laboratory WBC 10.4 X10^3/uL (3.6-10.0) H 08/31/21 06:00 RBC 3.04 X10^6/uL (3.5-5.4) L 08/31/21 06:00 Hgb 11.1 g/dL (12.0-16.0) L 08/31/21 06:00 Hct 33.1 % (36.0-47.0) L 08/31/21 06:00 MCV 108.9 fL (80.0-100.0) H 08/31/21 06:00 MCH 36.4 pg (27.0-34.0) H 08/31/21 06:00 MCHC 33.4 g/dL (33.0-35.0) 08/31/21 06:00 RDW 14.3 % (11.6-16.5) 08/31/21 06:00 Plt Count 249 X10^3/uL (150.0-450.0) 08/31/21 06:00 Plt Count Comment Adequate (ADEQUATE) 08/31/21 06:00 MPV 8.6 fL (7.4-11.0) 08/31/21 06:00 Neut % (Auto) 90.2 % (42.0-75.0) H 08/31/21 06:00 Lymph % (Auto) 4.6 % (21.0-51.0) L 08/31/21 06:00 [place] % (Auto) 5.2 % (0.0-13.0) 08/31/21 06:00 Eos % (Auto) 0.0 % (0.9-2.9) L 08/31/21 06:00 Baso % (Auto) 0 % (0.2-1.0) L 08/31/21 06:00 Neut # (Auto) 9.3 x10^3/uL (2.2-4.8) H 08/31/21 06:00 Lymph # (Auto) 0.5 X10^3/uL (1.3-2.9) L 08/31/21 06:00 [place] # (Auto) 0.5 x10^3/uL (0.3-0.8) 08/31/21 06:00 Eos # (Auto) 0.0 x10^3/uL (0.0-0.2) 08/31/21 06:00 Baso # (Auto) 0.0 X10^3/uL (0.0-0.1) 08/31/21 06:00 Absolute Nucleated RBC 0.1 /100WBC 08/31/21 06:00 Total Counted 100 08/31/21 06:00 Neutrophils % (Manual) 85 % (39-76) H 08/31/21 06:00 Lymphocytes % (Manual) 9 % (13-43) L 08/31/21 06:00 Monocytes % (Manual) 6 % (4-9) 08/31/21 06:00 Plt Morphology Comment Normal (NORMAL) 08/31/21 06:00 RBC Morphology Abnormal (NORMAL) A 08/31/21 06:00 Macrocytosis 1+ A 08/31/21 06:00 Stomatocytes Present 08/31/21 06:00 Sample Site Rr 08/27/21 17:49 ABG pH 7.470 (7.35-7.45) H 08/27/21 17:49 ABG pCO2 36.0 mmHg (35.0-45.0) 08/27/21 17:49 ABG pO2 73.0 mmHg (80.0-100.0) L 08/27/21 17:49 ABG HCO3 26.2 mmol/L (22-26) H 08/27/21 17:49 ABG O2 Saturation 95.0 % (90-100) 08/27/21 17:49 ABG Base Excess 2.6 mmol/L (-2.0-2.0) H 08/27/21 17:49 Pal Test Pos 08/27/21 17:49 A-a Gradient 32.0 mmHg 08/27/21 17:49 FiO2 21.0 08/27/21 17:49 Blood Gas Comments Marian well sw 08/27/21 17:49 Sodium 138 mmol/L (136-145) 08/31/21 06:00 Corrected Sodium 139 mmol/L (136-145) 08/31/21 06:00 Potassium 4.1 mmol/L (3.5-5.1) 08/31/21 06:00 Chloride 105 mmol/L (98-107) 08/31/21 06:00 Carbon Dioxide 27.7 mmol/L (21-32) 08/31/21 06:00 BUN 15 mg/dL (7-18) 08/31/21 06:00 Creatinine 0.69 mg/dL (0.55-1.02) 08/31/21 06:00 Est GFR (MDRD) Af Amer > 60 (>60) 08/31/21 06:00 Est GFR (MDRD) Non-Af > 60 (>60) 08/31/21 06:00 Glucose 139 mg/dL (65-99) H 08/31/21 06:00 Calcium 8.2 mg/dL (8.5-10.1) L 08/31/21 06:00 Corrected Calcium 9.3 mg/dL (8.5-10.1) 08/31/21 06:00 Magnesium 1.9 mg/dL (1.7-2.9) 08/29/21 08:58 Iron 32 ug/dL (50-175) L 08/27/21 18:13 Transferrin 151 mg/dL (202-364) L 08/27/21 18:13 Ferritin 377 ng/mL (8-252) H 08/27/21 18:13 Total Bilirubin 0.30 mg/dL (0.2-1.0) 08/31/21 06:00 AST 28 Units/L (15-37) 08/31/21 06:00 ALT 21 Units/L (12-78) 08/31/21 06:00 Alkaline Phosphatase 72 Units/L (46-116) 08/31/21 06:00 Total Protein 5.9 g/dL (6.4-8.2) L 08/31/21 06:00 Albumin 2.6 g/dL (3.4-5.0) L 08/31/21 06:00 Globulin 3.3 g/dL (2.5-4.5) 08/31/21 06:00 Albumin/Globulin Ratio 0.8 Ratio (1.1-2.1) L 08/31/21 06:00 Amylase 33 Units/L (25-115) 08/27/21 18:18 Lipase 38 Units/L (73-393) L 08/27/21 18:18 Vitamin B12 1458 pg/mL (193-986) H 08/27/21 18:13 Folate 14.6 ng/mL (>8.6) 08/27/21 18:13 Specimen Type Clean catch urine 08/27/21 22:00 Urine Color Yellow (YELLOW) 08/27/21 22:00 Urine Appearance Hazy (CLEAR) 08/27/21 22:00 Urine pH 5.0 (5.0 - 8.0) 08/27/21 22:00 Ur Specific [place] 1.015 (1.000-1.030) 08/27/21 22:00 Urine Protein 2+ (NEGATIVE) 08/27/21 22:00 Urine Glucose (UA) Negative (NEGATIVE) 08/27/21 22:00 Urine Ketones 1+ (NEGATIVE) 08/27/21 22:00 Urine Occult Blood 1+ (NEGATIVE) 08/27/21 22:00 Urine Nitrite Negative (NEGATIVE) 08/27/21 22:00 Urine Bilirubin Negative (NEGATIVE) 08/27/21 22:00 Urine Urobilinogen Normal (NORMAL) 08/27/21 22:00 Ur Leukocyte Esterase 1+ (NEGATIVE) 08/27/21 22:00 Urine RBC 3-5 /HPF (0-3) A 08/27/21 22:00 Urine WBC 5-10 /HPF (0-5) A 08/27/21 22:00 Ur Squamous Epith Cells Moderate /HPF (NEGATIVE) 08/27/21 22:00 Urine Bacteria Trace /HPF (NEGATIVE) 08/27/21 22:00 Urine Mucus Moderate /HPF (NEGATIVE) 08/27/21 22:00 Ur Culture Indicated? No/not indicated 08/27/21 22:00 SARS-CoV-2 (PCR) Negative (NEGATIVE) 08/27/21 17:35 Influenza Type A (PCR) Negative (NEGATIVE) 08/27/21 17:35 Influenza Type B (PCR) Negative (NEGATIVE) 08/27/21 17:35 RSV (PCR) Negative (NEGATIVE) 08/27/21 17:35 Plan (1) Hypertension: Status: Acute Plan: increase Cozaar to 100mg qday. (2) COPD exacerbation: Status: Acute Narrative Support Text: Improving. Plan: ADMIT, CXR ABG ON ADMISSION IV HYDRATION, STRICT I&OS RESP THERAPY, SUPPLEMENTAL O2 STOOL STUDIES, IV ABTX PPI THERAPY, VERIFY HOME MEDICATION BP CONTROL, COVID SWAB ON ADMISSION, IV SOLU MEDROL DUO NEBS, PT CONSULT (3) Acute colitis: Status: Acute (4) CHF (congestive heart failure): Status: Acute Qualifiers: Heart failure type: other Qualified Code(s): I50.9 - Heart failure, unspecified (5) Falls frequently: Status: Acute (6) Adult failure to thrive: Status: Acute
[2021-08-31] MEDS: COZAAR PO SCH (18:20)
[2021-08-31] MEDS: COLACE CAP 100 MG PO SCH (21:49)
[2021-09-01] MEDS: DUONEB 0.5 MG/3 MG (3 mL) NEB SCH ×3 (00:10→08:21)
[2021-09-01] MEDS: MORPHINE SULFATE INJ 2 MG INJ IVP PRN ×2 (00:45→07:20)
[2021-09-01] MEDS: ROBITUSSIN (PLAIN) PO SCH ×4 (00:45→12:28)
[2021-09-01] MEDS: SOLU-Medrol 125 MG VIAL IVP SCH (06:20)
[2021-09-01 06:52] LABS: BASOPHILS % (AUTO) 0 % (0.2-1.0); HEMATOCRIT 34.9 % (36.0-47.0); HEMOGLOBIN 11.8 g/dL (12.0-16.0); LYMPHOCYTES # (AUTO) 0.6 X10^3/uL (1.3-2.9); LYMPHOCYTES % (AUTO) 6.7 % (21.0-51.0); MEAN CORPUSCULAR HEMOGLOBIN 36.9 pg (27.0-34.0); MEAN CORPUSCULAR HGB CONC 33.9 g/dL (33.0-35.0); MEAN CORPUSCULAR VOLUME 108.7 fL (80.0-100.0); MEAN PLATELET VOLUME 8.4 fL (7.4-11.0); MONOCYTES # (AUTO) 0.5 x10^3/uL (0.3-0.8); MONOCYTES % (AUTO) 5.1 % (0.0-13.0); NEUTROPHILS # (AUTO) 8.2 x10^3/uL (2.2-4.8); NEUTROPHILS % (AUTO) 88.2 % (42.0-75.0); PLATELET COUNT 228 X10^3/uL (150.0-450.0); RED BLOOD COUNT 3.21 X10^6/uL (3.5-5.4); RED CELL DISTRIBUTION WIDTH 13.9 % (11.6-16.5); WHITE BLOOD COUNT 9.3 X10^3/uL (3.6-10.0)
[2021-09-01 06:59] LABS: ALANINE AMINOTRANSFERASE 44 Units/L (12-78); ALBUMIN 2.7 g/dL (3.4-5.0); ALKALINE PHOSPHATASE 73 Units/L (46-116); ASPARTATE AMINO TRANSFERASE 40 Units/L (15-37); BLOOD UREA NITROGEN 14 mg/dL (7-18); CALCIUM 8.2 mg/dL (8.5-10.1); CARBON DIOXIDE 31.6 mmol/L (21-32); CHLORIDE 102 mmol/L (98-107); COR CA(FOR HYPOALB) 9.2 mg/dL (8.5-10.1); COR NA(FOR HYPERGLY) 139 mmol/L (136-145); CREATININE 0.58 mg/dL (0.55-1.02); SODIUM 138 mmol/L (136-145); TOTAL PROTEIN 5.9 g/dL (6.4-8.2); eGFR NON BLACK RACES > 60 (>60)
[2021-09-01] MEDS: NS 1000 ML 1,000 ML IV SCH ×2 (07:14→10:04)
[2021-09-01 08:00] LABS: PLATELET MORPHOLOGY COMMENT NORMAL (NORMAL)
[2021-09-01 08:01] LABS: STOMATOCYTES PRESENT
--- NOTE | 2021-09-01 08:04 | RAD ---
HISTORYCOPD EXACSTUDYCHEST, 1 [id number] is rotated. The cardiomediastinal silhouette is widened but stable. Similar enlargement of the pulmonary arteries. The lungs are clear without evidence of airspace disease or effusion. No pneumothorax. The bony thorax appears intact.IMPRESSIONSimilar cardiomegaly without acute cardiopulmonary disease.Electronically signed by: SURAJ CARMONA (Sep 01, 2021 08:02:10)
[2021-09-01] MEDS: COZAAR PO SCH (08:14)
[2021-09-01] MEDS: CIPRO IV 400 MG PREMIX* 400 MG/200 ML IV.SOLN. IV SCH (08:14)
[2021-09-01] MEDS: LOPRESSOR TAB 50 MG PO SCH (08:14)
[2021-09-01] MEDS: VSL#3 PO SCH (08:15)
[2021-09-01] MEDS: PROTONIX INJ 40 MG VIAL IVP SCH (08:15)
[2021-09-01] MEDS: LOVENOX INJ 40 MG SYR SC SCH (08:15)
[2021-09-01] MEDS: PULMICORT NEB TX 0.5 MG NEB SCH (08:21)
[2021-09-01 11:39] VITALS: BP 156/73
--- NOTE | 2021-09-03 11:02 | W.DIS.FURT ---
Summary of Discharge Discharge Summary of Date Date of Exam: 09/03/21 Admission Date Date of Admission: 08/27/21 Admission Diagnosis Patient Problems (Updated 08/27/21 @ 18:10 by GABBY BENDER) Acute colitis (Acute) K52.9 Falls frequently (Acute) R29.6 Adult failure to thrive (Acute) R62.7 CHF (congestive heart failure) (Acute) I50.9 COPD exacerbation (Acute) J44.1 Hospital Course: Following admission the patient improved daily. She was given nebs, IV steroids and antibiotics. Her COPD and weakness improved. On the last day of hospitalization her vital signs and labs were good and the patient was asking to go home. Vital Signs: Vital Signs (72 hours) 08/31/21 11:18 08/31/21 11:48 08/31/21 12:00 Temperature 98.4 F Pulse Rate Pulse Rate [Radial] 76 Respiratory Rate 20 20 22 Blood Pressure [Left Arm] 147/85 O2 Sat by Pulse Oximetry 95 08/31/21 13:43 08/31/21 16:00 08/31/21 18:19 Temperature 97.8 F Pulse Rate 77 Pulse Rate [Radial] 76 Respiratory Rate 24 20 Blood Pressure [Left Arm] 185/98 O2 Sat by Pulse Oximetry 99 96 08/31/21 18:49 08/31/21 20:00 08/31/21 20:46 Temperature 98.4 F Pulse Rate 79 Pulse Rate [Radial] 74 Respiratory Rate 20 22 Blood Pressure [Left Arm] 161/78 O2 Sat by Pulse Oximetry 95 96 09/01/21 00:00 09/01/21 00:45 09/01/21 01:15 Temperature 98.3 F Pulse Rate Pulse Rate [Radial] 69 Respiratory Rate 22 18 20 Blood Pressure [Left Arm] 164/85 O2 Sat by Pulse Oximetry 96 09/01/21 04:00 09/01/21 07:20 09/01/21 07:50 Temperature 98.1 F Pulse Rate Pulse Rate [Radial] 65 Respiratory Rate 24 19 19 Blood Pressure [Left Arm] 181/90 O2 Sat by Pulse Oximetry 97 09/01/21 07:57 09/01/21 08:21 09/01/21 11:38 Temperature 98.0 F 98.0 F Pulse Rate 69 Pulse Rate [Radial] 76 55 L Respiratory Rate 22 20 Blood Pressure [Left Arm] 171/81 156/73 O2 Sat by Pulse Oximetry 96 97 94 L Labs: Laboratory Last Values WBC 9.3 X10^3/uL (3.6-10.0) 09/01/21 06:19 RBC 3.21 X10^6/uL (3.5-5.4) L 09/01/21 06:19 Hgb 11.8 g/dL (12.0-16.0) L 09/01/21 06:19 Hct 34.9 % (36.0-47.0) L 09/01/21 06:19 MCV 108.7 fL (80.0-100.0) H 09/01/21 06:19 MCH 36.9 pg (27.0-34.0) H 09/01/21 06:19 MCHC 33.9 g/dL (33.0-35.0) 09/01/21 06:19 RDW 13.9 % (11.6-16.5) 09/01/21 06:19 Plt Count 228 X10^3/uL (150.0-450.0) 09/01/21 06:19 Plt Count Comment Adequate (ADEQUATE) 09/01/21 06:19 MPV 8.4 fL (7.4-11.0) 09/01/21 06:19 Neut % (Auto) 88.2 % (42.0-75.0) H 09/01/21 06:19 Lymph % (Auto) 6.7 % (21.0-51.0) L 09/01/21 06:19 [place] % (Auto) 5.1 % (0.0-13.0) 09/01/21 06:19 Eos % (Auto) 0.0 % (0.9-2.9) L 09/01/21 06:19 Baso % (Auto) 0 % (0.2-1.0) L 09/01/21 06:19 Neut # (Auto) 8.2 x10^3/uL (2.2-4.8) H 09/01/21 06:19 Lymph # (Auto) 0.6 X10^3/uL (1.3-2.9) L 09/01/21 06:19 [place] # (Auto) 0.5 x10^3/uL (0.3-0.8) 09/01/21 06:19 Eos # (Auto) 0.0 x10^3/uL (0.0-0.2) 09/01/21 06:19 Baso # (Auto) 0.0 X10^3/uL (0.0-0.1) 09/01/21 06:19 Absolute Nucleated RBC 0.1 /100WBC 09/01/21 06:19 Total Counted 100 08/31/21 06:00 Neutrophils % (Manual) 85 % (39-76) H 08/31/21 06:00 Lymphocytes % (Manual) 9 % (13-43) L 08/31/21 06:00 Monocytes % (Manual) 6 % (4-9) 08/31/21 06:00 Plt Morphology Comment Normal (NORMAL) 09/01/21 06:19 RBC Morphology Abnormal (NORMAL) A 09/01/21 06:19 Macrocytosis 1+ A 09/01/21 06:19 Stomatocytes Present 09/01/21 06:19 Sample Site Rr 08/27/21 17:49 ABG pH 7.470 (7.35-7.45) H 08/27/21 17:49 ABG pCO2 36.0 mmHg (35.0-45.0) 08/27/21 17:49 ABG pO2 73.0 mmHg (80.0-100.0) L 08/27/21 17:49 ABG HCO3 26.2 mmol/L (22-26) H 08/27/21 17:49 ABG O2 Saturation 95.0 % (90-100) 08/27/21 17:49 ABG Base Excess 2.6 mmol/L (-2.0-2.0) H 08/27/21 17:49 Pal Test Pos 08/27/21 17:49 A-a Gradient 32.0 mmHg 08/27/21 17:49 FiO2 21.0 08/27/21 17:49 Blood Gas Comments Marian well sw 08/27/21 17:49 Sodium 138 mmol/L (136-145) 09/01/21 06:19 Corrected Sodium 139 mmol/L (136-145) 09/01/21 06:19 Potassium 4.0 mmol/L (3.5-5.1) 09/01/21 06:19 Chloride 102 mmol/L (98-107) 09/01/21 06:19 Carbon Dioxide 31.6 mmol/L (21-32) 09/01/21 06:19 BUN 14 mg/dL (7-18) 09/01/21 06:19 Creatinine 0.58 mg/dL (0.55-1.02) 09/01/21 06:19 Est GFR (MDRD) Af Amer > 60 (>60) 09/01/21 06:19 Est GFR (MDRD) Non-Af > 60 (>60) 09/01/21 06:19 Glucose 144 mg/dL (65-99) H 09/01/21 06:19 Calcium 8.2 mg/dL (8.5-10.1) L 09/01/21 06:19 Corrected Calcium 9.2 mg/dL (8.5-10.1) 09/01/21 06:19 Magnesium 1.9 mg/dL (1.7-2.9) 08/29/21 08:58 Iron 32 ug/dL (50-175) L 08/27/21 18:13 Transferrin 151 mg/dL (202-364) L 08/27/21 18:13 Ferritin 377 ng/mL (8-252) H 08/27/21 18:13 Total Bilirubin 0.40 mg/dL (0.2-1.0) 09/01/21 06:19 AST 40 Units/L (15-37) H 09/01/21 06:19 ALT 44 Units/L (12-78) 09/01/21 06:19 Alkaline Phosphatase 73 Units/L (46-116) 09/01/21 06:19 Total Protein 5.9 g/dL (6.4-8.2) L 09/01/21 06:19 Albumin 2.7 g/dL (3.4-5.0) L 09/01/21 06:19 Globulin 3.2 g/dL (2.5-4.5) 09/01/21 06:19 Albumin/Globulin Ratio 0.8 Ratio (1.1-2.1) L 09/01/21 06:19 Amylase 33 Units/L (25-115) 08/27/21 18:18 Lipase 38 Units/L (73-393) L 08/27/21 18:18 Vitamin B12 1458 pg/mL (193-986) H 08/27/21 18:13 Folate 14.6 ng/mL (>8.6) 08/27/21 18:13 Specimen Type Clean catch urine 08/27/21 22:00 Urine Color Yellow (YELLOW) 08/27/21 22:00 Urine Appearance Hazy (CLEAR) 08/27/21 22:00 Urine pH 5.0 (5.0 - 8.0) 08/27/21 22:00 Ur Specific [place] 1.015 (1.000-1.030) 08/27/21 22:00 Urine Protein 2+ (NEGATIVE) 08/27/21 22:00 Urine Glucose (UA) Negative (NEGATIVE) 08/27/21 22:00 Urine Ketones 1+ (NEGATIVE) 08/27/21 22:00 Urine Occult Blood 1+ (NEGATIVE) 08/27/21 22:00 Urine Nitrite Negative (NEGATIVE) 08/27/21 22:00 Urine Bilirubin Negative (NEGATIVE) 08/27/21 22:00 Urine Urobilinogen Normal (NORMAL) 08/27/21 22:00 Ur Leukocyte Esterase 1+ (NEGATIVE) 08/27/21 22:00 Urine RBC 3-5 /HPF (0-3) A 08/27/21 22:00 Urine WBC 5-10 /HPF (0-5) A 08/27/21 22:00 Ur Squamous Epith Cells Moderate /HPF (NEGATIVE) 08/27/21 22:00 Urine Bacteria Trace /HPF (NEGATIVE) 08/27/21 22:00 Urine Mucus Moderate /HPF (NEGATIVE) 08/27/21 22:00 Ur Culture Indicated? No/not indicated 08/27/21 22:00 SARS-CoV-2 (PCR) Negative (NEGATIVE) 08/27/21 17:35 Influenza Type A (PCR) Negative (NEGATIVE) 08/27/21 17:35 Influenza Type B (PCR) Negative (NEGATIVE) 08/27/21 17:35 RSV (PCR) Negative (NEGATIVE) 08/27/21 17:35 Reason For Visit: ACUTE EXACERBATION COPD, COLITIS Discharge Date Discharge Date: 09/01/21 Discharge Diagnosis All Active Problems (Updated 08/27/21 @ 18:10 by GABBY BENDER) Acute colitis (Acute) Falls frequently (Acute) Adult failure to thrive (Acute) Weakness (Acute) Shortness of breath (Acute) Hypertension (Acute) CHF (congestive heart failure) (Acute) COPD exacerbation (Acute) Gallstone of bile duct with chronic gallbladder inflammation (Acute) Acute pancreatitis (Acute) COPD (chronic obstructive pulmonary disease) (Chronic) Arthritis (Chronic) Plan of Treatment: Continue with present treatment and follow up plan. Pt is to keep follow up appointment as instructed and take medications as ordered. Discharge Medications Discharge Medications: gabapentin [From Neurontin] Allergy (Verified 10/13/19 03:31) pregabalin [From Lyrica] Allergy (Verified 10/13/19 03:31) CONTINUE taking the following medications albuterol sulfate 2 puff INHALATION Q4H PRN 08/28/21 [History] carbidopa-levodopa 1 tab PO BID 08/28/21 [History] dicyclomine 20 mg PO QID 08/28/21 [History] montelukast 10 mg PO DAILY 08/28/21 [History] omeprazole 40 mg PO DAILY 08/28/21 [History] New Prescriptions cefuroxime axetil 500 mg PO DAILY #7 tab 09/01/21 [Rx] levofloxacin 500 mg PO Q24H #7 tab 09/01/21 [Rx] methylprednisolone [Medrol ([place])] See Rx Instructions .ROUTE .COMPLEX #1 ea 09/01/21 [Rx] Discharge Disposition Discharge Disposition: Patient is discharged home in stable condition. Discharge Plan Discharge Plan Hospital Course: Following admission the patient improved daily. She was given nebs, IV steroids and antibiotics. Her COPD and weakness improved. On the last day of hospitalization her vital signs and labs were good and the patient was asking to go home. Patient Disposition: 01 HOME, SELF-CARE Condition: Stable Health Concerns: Post Hospitalization: new medications and changes needed to prevent readmission or further decline. Pt educated and given instructions on all concerns. Care Plan Goals: Problem: Respiratory Complications Goal: Improved Uncomplicated Respiratory Status Instructions: Follow provided instructions. Follow up with primary physician as directed. Contact primary care physician or report to the closest Emergency Room if condition worsens. Plan of Treatment: Continue with present treatment and follow up plan. Pt is to keep follow up appointment as instructed and take medications as ordered. Prescriptions: New cefuroxime axetil 500 mg Tablet 500 mg PO DAILY Qty: 7 RF: 0 levofloxacin 500 mg Tablet 500 mg PO Q24H Qty: 7 RF: 0 methylprednisolone [Medrol ([place])] 4 mg Tablets,Dose Pack See Rx Instructions .ROUTE .COMPLEX Qty: 1 RF: 0 No Action quetiapine 25 mg tablet 25 mg PO HS PRNRF: 0 tizanidine 4 mg tablet 4 mg PO TID PRNRF: 0 oxycodone-acetaminophen 10-325 mg tablet 1 tab PO BID RF: 0 metoprolol tartrate 50 mg tablet 50 mg PO BID RF: 0 omeprazole 40 mg capsule,delayed release(DR/EC) 40 mg PO DAILY RF: 0 dicyclomine 20 mg tablet 20 mg PO QID RF: 0 montelukast 10 mg tablet 10 mg PO DAILY RF: 0 albuterol sulfate 90 mcg/actuation HFA aerosol inhaler 2 puff INHALATION Q4H PRNRF: 0 carbidopa-levodopa 25-100 mg tablet 1 tab PO BID RF: 0 Orders to Discharge Patient Discharge Orders: Discharge (Routine); Ordered 09/01/21 Ordered By: KARTHIK CERVANTES Follow ups/Referrals Follow ups/Referrals: GABBY BENDER [Primary Care Provider] - 1 WEEK Instructions Instructions: Shortness of Breath, Adult, [id number], Chronic Obstructive Pulmonary Disease Exacerbation, [id number] Stand Alone Forms: Excuse From Work or School, Precautions for COVID19, [facility], Patient Portal, Social Distancing
== END 2021-09-01 14:20 | disposition home or self-care (01) ==
LOC: OBS → MED/SURG 19:32
PROVIDERS: ADMIT Internal Medicine; ATTEND Internal Medicine
DX: R79.89 Other specified abnormal findings of blood chemistry; R06.02 Shortness of breath; Z20.822 Contact with and (suspected) exposure to COVID-19; M19.90 Unspecified osteoarthritis, unspecified site; R29.6 Repeated falls; I11.0 Hypertensive heart disease with heart failure; I50.9 Heart failure, unspecified; J44.1 Chronic obstructive pulmonary disease with (acute) exacerbation; R26.89 Other abnormalities of gait and mobility; K52.89 Other specified noninfective gastroenteritis and colitis; R55 Syncope and collapse; R62.7 Adult failure to thrive; K21.9 Gastro-esophageal reflux disease without esophagitis